=== PATIENT | female | born 1935 | race Caucasian/White ===

== ENCOUNTER 2017-04-25 07:22 | Day surgery (SDC) | payer MEDICARE, BC, MEDICAID ==
[~2017-04-25 07:22] MED LIST: Lactated Ringers 1,000 ML IV SCH; Lidocaine 1%/Sod Bicarbonate in NS 8.4% 1 ML Syringe IDERM PRN; Propofol 200 MG/20 ML SDV ONE; Sodium Chloride 0.9% 10 ML Syringe FLUSH PRN; fentaNYL 100 MCG/2 ML SDV ONE
--- NOTE | 2017-04-25 08:05 | PCM.PREANE ---
Preanesthetic Assessment - Anesthesia/Transfusion/Family Hx Anesthesia History: Prior Anesthesia Without Reaction Family History of Anesthesia Reaction: No Transfusion History: Prior Transfusion Without Reaction Type of Transfusion Reactions: Reports: Unknown - Review of Systems General: No Symptoms Pulmonary: Shortness of Breath (with a lot of walking ) Cardiovascular: Edema (bilateral legs, right more than left), Other (EKG unchanged from 2017, SR with prolonged NH interval, AAA repair 2017, left carotid bruit, denies any chest pain) Gastrointestinal: Diarrhea, Other (GERD, on nexium, ) Neurological: Tingling (in both feet for about a year) Other: Reports: Anxiety - Physical Assessment NPO Status Date: 04/24/17 NPO Status Time: 23:00 Pulse: 57 O2 Sat by Pulse Oximetry: 98 Respiratory Rate: 16 Blood Pressure: 150/73 Temperature: 36.1 C Weight: 86.7 kg ASA Class: 3 Mental Status: Alert & Oriented x3 Dentition: Reports: Dentures, Edentulous Thyro-Mental Finger Breadths: 3 Mouth Opening Finger Breadths: 3 ROM/Head Extension: Full - Allergies Allergies/Adverse Reactions: Allergies Allergy/AdvReac Type Severity Reaction Status Date / Time No Known Allergies Allergy Verified 04/24/17 15:06 - Blood Blood Available: No Product(s) Available: None - Anesthesia Plan Pre-Op Medication Ordered: None Beta Julee: Metoprolol Med Last Dose Date: 04/25/17 Med Last Dose Time: 05:00 - Acknowledgements Anesthesia Type Planned: MAC Pt an Appropriate Candidate for the Planned Anesthesia: Yes Alternatives and Risks of Anesthesia Discussed w Pt/Guardian: Yes Pt/Guardian Understands and Agrees with Anesthesia Plan: Yes PreAnesthesia Questionnaire HEENT History: Reports: Cataract, Impaired Vision, Other (See Below) Other HEENT History: wears glasses, dentures Cardiovascular History: Reports: High Cholesterol, Other (See Below) Other Cardiovascular History: left carotid artery bruit Respiratory History: Reports: SOB Gastrointestinal History: Reports: Chronic Diarrhea, Diverticulosis, Other (See Below) Other Gastrointestinal History: LLQ pain, colon polyps, diarrhea Genitourinary History: Reports: Urinary Incontinence 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 SUPPORT ASSISTANT History: Reports: Other (See Below) Other OB/BYN History: labia minora aggulination, cystocele, rectocele Musculoskeletal History: Reports: Other (See Below) Other Musculoskeletal History: closed compression fracture, lumbar disc herniation Neurological History: Reports: None Psychiatric History: Reports: Anxiety Endocrine/Metabolic History: Reports: None Hematologic History: Reports: None Oncologic (Cancer) History: Reports: None Dermatologic History: Reports: Other (See Below) Other Dermatologic History: lichen sclerosus - Past Surgical History HEENT Surgical History: Reports: Cataract Surgery Cardiovascular Surgical History: Reports: None GI Surgical History: Reports: Colonoscopy, Other (See Below) Other GI Surgeries/Procedures: AAA repair, sigmoidectomy Female Surgical History: Reports: None Male Surgical History: Reports: None Endocrine Surgical History: Reports: None Neurological Surgical History: Reports: None Musculoskeletal Surgical History: Reports: Knee Replacement, Other (See Below) Other Musculoskeletal Surgeries/Procedures:: kyphoplasty Oncologic Surgical History: Reports: None - SUBSTANCE USE Smoking Status *Q: Former Smoker Tobacco Use Within Last Twelve Months: No Second Hand Smoke Exposure: No Recreational Drug Use History: No - HOME MEDS Home Medications: Home Meds Aspirin [Tobias Aspirin] 81 mg PO DAILY 04/03/16 [History] Celecoxib [CeleBREX] 200 mg PO DAILY 04/03/16 [History] Cilostazol [Pletal] 100 mg PO BID 04/03/16 [History] Citalopram Hydrobromide [Celexa] 10 mg PO DAILY 04/03/16 [History] Esomeprazole Magnesium [Nexium] 40 mg PO DAILY 04/03/16 [History] Hydrochlorothiazide 12.5 mg PO DAILY 04/03/16 [History] Metoprolol Succinate [Toprol XL] 100 mg PO DAILY 04/03/16 [History] atorvaSTATin [Lipitor] 40 mg PO DAILY 04/03/16 [History] Acetaminophen [Tylenol Extra Strength] 1,000 mg PO QID PRN 04/24/17 [History] Cholestyramine (With Sugar) [Questran Powder] 1 dose PO BID 04/24/17 [History] Clobetasol [Temovate 0.05%] 1 dose TOP ASDIRECTED PRN 04/24/17 [History] Lisinopril [Lisinopril] 40 mg PO DAILY 04/24/17 [History] amLODIPine Besylate [Amlodipine Besylate] 10 mg PO DAILY 04/24/17 [History] - CURRENT (IN HOUSE) MEDS Current Meds: Current Medications Lactated Ringer's (Ringers, Lactated) 1,000 mls @ 125 mls/hr IV ASDIRECTED MILAGROS Stop: 04/25/17 23:00 Lidocaine/Sodium Bicarbonate (Buffered Lidocaine 1% In Ns 8.4%) 0.25 ml IDERM ONETIME PRN PRN Reason: Prior to IV Start Stop: 04/25/17 18:00 Sodium Chloride (Saline Flush) 10 ml FLUSH ASDIRECTED PRN PRN Reason: Keep Vein Open Stop: 04/25/17 18:00 Discontinued Medications Fentanyl (Sublimaze) Confirm Administered Dose 100 mcg .ROUTE .STK-MED ONE Stop: 04/25/17 07:05 Propofol (Diprivan 20 Ml) Confirm Administered Dose 200 mg .ROUTE .STK-MED ONE Stop: 04/25/17 07:05
[2017-04-25] MEDS ORDERED: Propofol 200 MG/20 ML SDV ONE (09:24)
--- NOTE | 2017-04-25 09:43 | PCM.OPNOTE ---
- General Post-Op/Procedure Note Date of Surgery/Procedure: 04/25/17 Operative Procedure(s): EGD with bx and colonoscopy with collection of stool for culture Pre Op Diagnosis: epigastric pain and chronic diarrhea with change in bowel habbits Post-Op Diagnosis: Same Anesthesia Technique: MAC Primary Surgeon: Toi Wang EBL in mLs: 0 Complications: None Condition: Good
[2017-04-25 09:45] VITALS: BP 112/67
--- NOTE | 2017-04-25 09:45 | PCM48HPAN ---
Post Anesthesia Note - EVALUATION WITHIN 48HRS OF ANESTHETIC Vital Signs in Normal Range: Yes Patient Participated in Evaluation: Yes Respiratory Function Stable: Yes Airway Patent: Yes Cardiovascular Function Stable: Yes Hydration Status Stable: Yes Pain Control Satisfactory: Yes Nausea and Vomiting Control Satisfactory: Yes Mental Status Recovered: Yes Pulse Rate: 53 SaO2: 98 Resp Rate: 20 Temperature: 36.1 C Blood Pressure: 112/67
--- NOTE | 2017-04-26 07:25 | OR ---
DATE OF OPERATION: 04/25/2017 SURGEON: Toi Wang MD PREOPERATIVE DIAGNOSIS: Epigastric pain, difficulty weaning off proton pump inhibitors. POSTOPERATIVE DIAGNOSIS: Epigastric pain, difficulty weaning off proton pump inhibitors. OPERATION PERFORMED: EGD with biopsy. ANESTHESIA: Done under IV sedation. FINDINGS: Second portion of the duodenum, duodenal bulb and pyloric channel was normal. Antrum showed little redness. This was biopsied. Body, cardia and fundus of the stomach was unremarkable. J-maneuver showed an incompetent hiatus. GE junction was located at 40 cm associated with a small sliding simple hiatal hernia. GE junction did not show any acute disease. Rest of the esophagus was normal. DESCRIPTION OF PROCEDURE: The patient was taken to the endoscopy room, placed in a supine position, connected to monitoring equipment, given IV sedation, placed in left lateral position and bite block was inserted. Video Olympus gastroscope placed in the posterior oropharynx and under direct vision, threaded past the cricopharyngeus down the esophagus into the stomach. Stomach was insufflated and the scope passed through the pylorus to the second portion of the duodenum and then slowly withdrawn showing normal 2nd portion of the duodenum, duodenal bulb, pyloric channel. Antrum showed little redness. This was biopsied. Body, cardia and fundus of stomach was normal. J-maneuver did show an incompetent hiatus. The scope was withdrawn, GE junction located at 40 cm with a sharp Z-line. There was no abnormality noted. Biopsies were taken of the GE junction. Small sliding hiatal hernia noted. Rest of the esophagus was viewed as the scope withdrawn was unremarkable. The patient tolerated the procedure and specimen sent to Pathology in separate labeled containers and IV sedation continued for colonoscopy. ESTIMATED BLOOD LOSS: MMODAL /[id number]
--- NOTE | 2017-04-26 07:26 | OR ---
DATE OF OPERATION: 04/25/2017 SURGEON: Toi Wang MD PREOPERATIVE DIAGNOSIS: Chronic diarrhea and left lower quadrant discomfort. POSTOPERATIVE DIAGNOSIS: Chronic diarrhea and left lower quadrant discomfort. OPERATION PERFORMED: Colonoscopy to the cecum with collection of specimen for analysis and culture. FINDINGS: Occasional diverticulum scattered in the descending sigmoid colon. Anastomosis located at 50 cm, which is an end-to-side anastomosis and the rectal pouch was free of any gross abnormality. There are no angiodysplasias, large tumor masses, ulcerations, or strictures. Hemorrhoids were noted. Internal hemorrhoids were also noted. The patient tolerated the procedure. ANESTHESIA: Colonoscopy to cecum done under IV sedation. DESCRIPTION OF PROCEDURE: The patient was taken to the endoscopy room, placed in a supine position, connected to monitoring equipment for upper GI endoscopy, and given IV sedation. Upper GI endoscopy was done, this was followed by colonoscopy. The patient was placed in the left lateral position. Perianal area was inspected, it was normal. Rectal exam showed good sphincter tone. A video Olympus colonoscope was then introduced into the rectum and threaded up to the tip of the gastric pouch, which was normal and this was pulled back and entered into the main colon, which is end-to-side anastomosis. Anastomosis was widely patent and functioning well. Scope then advanced into the cecum where the appendicular orifice and ileocecal valve were noted. Prep was excellent throughout the colon. [place] cleansing score grade A and the scope was slowly withdrawn showing the cecum, ascending colon, transverse colon, descending colon, the remaining portion of the sigmoid colon and rectum. Retroflexed view demonstrated internal hemorrhoids. As the scope was withdrawn, stool was aspirated for analysis and culture. The occasional diverticulum was noted in the descending sigmoid and portion of the sigmoid colon. The patient tolerated the procedure and sent to recovery room in stable condition, will be followed up with Shelley Estrella. ESTIMATED BLOOD LOSS: MMODAL /[id number]
== END 2017-04-25 10:15 | disposition home or self-care (01) ==
LOC: JD.SDS 07:22
PROVIDERS: ATTEND Surgery
DX: K57.30 Diverticulosis of large intestine without perforation or abscess without bleeding (principal); K64.8 Other hemorrhoids; I10 Essential (primary) hypertension; F41.9 Anxiety disorder, unspecified; K21.9 Gastro-esophageal reflux disease without esophagitis; E78.5 Hyperlipidemia, unspecified; Z79.82 Long term (current) use of aspirin; Z79.899 Other long term (current) drug therapy; Z87.891 Personal history of nicotine dependence
CPT/HCPCS: 36415; 45378; 80048; 87046; 87427; 87493; 89055; 93005; J3010; J7120; 00813; J2704

== ENCOUNTER 2020-02-02 11:57 | Inpatient (IN) | payer MEDICARE, BC, MEDICAID ==
[2020-02-02] MEDS ORDERED: Sodium Chloride 0.9% 10 ML Syringe FLUSH PRN (12:14)
[2020-02-02] MEDS ORDERED: Sodium Chloride 0.9% 1,000 ML IV ONE (12:16)
--- NOTE | 2020-02-02 12:36 | EDM.PDOC ---
<Clark Wheat - Last Filed: 02/02/20 13:16> ED HPI GENERAL MEDICAL PROBLEM - General Chief Complaint: General Stated Complaint: [facility] Time Seen by Provider: 02/02/20 12:06 - Related Data Allergies Allergy/AdvReac Type Severity Reaction Status Date / Time No Known Allergies Allergy Verified 02/02/20 12:13 Home Meds: Home Meds Aspirin [Doddridge Aspirin EC] 81 mg PO DAILY 04/03/16 [History] Cilostazol [Pletal] 100 mg PO BID 04/03/16 [History] Citalopram Hydrobromide [Celexa] 10 mg PO DAILY 04/03/16 [History] Metoprolol Succinate [Toprol XL] 100 mg PO DAILY 04/03/16 [History] atorvaSTATin [Lipitor] 40 mg PO DAILY 04/03/16 [History] Acetaminophen [Tylenol Extra Strength] 650 mg PO Q8HR PRN 04/24/17 [History] Doxazosin Mesylate [Cardura] 2 mg PO DAILY 06/26/19 [History] Furosemide [Lasix] 40 mg PO DAILY 06/26/19 [History] Omeprazole 20 mg PO DAILY 06/26/19 [History] Potassium Chloride [Klor-Con M10] 10 meq PO DAILY 06/26/19 [History] rOPINIRole [Requip] 0.5 mg PO BEDTIME 06/26/19 [History] Iron Polysaccharides Complex [Ferrex 150] 1 tab PO DAILY 02/02/20 [History] lisinopriL [Prinivil] 5 mg PO DAILY 02/02/20 [History] Departure - Departure Disposition: Admitted As Inpatient 66 Clinical Impression: Hypoxia, Elevated d-dimer - Discharge Information <Sabrina Montoya V - Last Filed: 02/02/20 19:35> ED HPI GENERAL MEDICAL PROBLEM - General Source of Information: Reports: Patient, RN Notes Reviewed History Limitations: Reports: No Limitations - History of Present Illness INITIAL COMMENTS - FREE TEXT/NARRATIVE: Patient is an 84-year-old female who presents to the ED via [facility] for her diarrhea, and dizziness. Patient notes she has been having di arrhea on and off for about 1 month, she states some days she can have 5-6 episodes per day. She is complaining of feeling faint and dizzy at the present moment and this is what concerns her. She is complaining of generalized weakness, and has not really had much of an appetite. She did receive 4 mg of Zofran in route to the hospital by EMS. And they did have her on 2 L of oxygen as her O2 sats were in the high 80s without this. Patient denies any fever at home, she is afebrile at time of triage 96.9 F. Pulse rate is 52 bpm, respiratory rate of 16, blood pressure is 175/89. O2 sats were 87% on room air when she was taken off of the oxygen again. Patient's primary care provider is Dr. Brandt. She is not complaining of any abdomen pain. She states the nausea only hit today. Right Shoulder Pain Score (Numeric/FACES): 6 Past Medical History HEENT History: Reports: Cataract, Impaired Vision, Other (See Below) Other HEENT History: wears glasses, dentures Cardiovascular History: Reports: High Cholesterol, Other (See Below) Other Cardiovascular History: left carotid artery bruit Respiratory History: Reports: SOB Gastrointestinal History: Reports: Chronic Diarrhea, Diverticulosis, Other (See Below) Other Gastrointestinal History: LLQ pain, colon polyps, diarrhea Genitourinary History: Reports: Urinary Incontinence TIRE RETREADER History: Reports: Other (See Below) Other TIRE RETREADER History: labia minora aggulination, cystocele, rectocele Musculoskeletal History: Reports: Other (See Below) Other Musculoskeletal History: closed compression fracture, lumbar disc herniation Psychiatric History: Reports: Anxiety Endocrine/Metabolic History: Reports: Obesity/BMI 30+ Dermatologic History: Reports: Other (See Below) Other Dermatologic History: lichen sclerosus - Past Surgical History HEENT Surgical History: Reports: Cataract Surgery Cardiovascular Surgical History: Reports: Carotid Endarterectomy (09/2019) GI Surgical History: Reports: Colonoscopy, Other (See Below) Other GI Surgeries/Procedures: AAA repair, sigmoidectomy Musculoskeletal Surgical History: Reports: Knee Replacement, Other (See Below) Other Musculoskeletal Surgeries/Procedures:: kyphoplasty Social & Family History - Caffeine Use Caffeine Use: Reports: Coffee ED ROS GENERAL - Review of Systems Review Of Systems: Comprehensive ROS is negative, except as noted in HPI. ED EXAM, GENERAL - Physical Exam Exam: See Below Exam Limited By: No Limitations General Appearance: Alert, WD/WN, No Apparent Distress Eye Exam: Bilateral Eye: EOMI, Normal Inspection, PERRL Respiratory/Chest: No Respiratory Distress, Lungs Clear, Normal Breath Sounds, No Accessory Muscle Use, Chest Non-Tender Cardiovascular: Normal Peripheral Pulses, Regular Rate, Rhythm, No Murmur GI/Abdominal: Soft, Non-Tender, No Distention, No Mass, Abnormal Bowel Sounds (hypoactive bowel tones) Extremities: Normal Inspection, Normal Capillary Refill Neurological: Alert, Oriented, Normal Cognition, No Motor/Sensory Deficits Psychiatric: Normal Affect, Normal Mood Skin Exam: Warm, Dry, Intact, Normal Color, No Rash #1 Interpretation EKG Date: 02/02/20 Time: 12:54 Rhythm: NSR Rate (Beats/Min): 50 Zenia: Normal P-Wave: Present QRS: Normal ST-T: Normal QT: Normal OH/PQ Interval: prolonged 1 AV block Comparison: No Change EKG Interpretation Comments: Reviewed by myself and Dr. Wheat, no acute ST abnormalities appreciated. 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 Course - Vital Signs Last Recorded V/S: Last Vital Signs Temp 97.5 F 02/02/20 16:39 Pulse 56 L 02/02/20 16:39 Resp 20 02/02/20 16:39 BP 170/70 H 02/02/20 16:43 Pulse Ox 98 02/02/20 17:20 - Orders/Labs/Meds Orders: Active Orders 24 hr Category Date Time Status Peripheral IV Care [RC] Q2HR Care 02/02/20 12:14 Active UA W/MICROSCOPIC [URIN] Stat Lab 02/02/20 12:30 Received Heparin Sodium/D5W [Heparin 25,000 Units in D5W 500 ML] Med 02/02/20 13:57 Active 25,000 units in 500 ml IV TITRATE Sodium Chloride 0.9% [Saline Flush] Med 02/02/20 12:14 Active 10 ml FLUSH ASDIRECTED PRN Peripheral IV Insertion Adult [OM.PC] Routine Oth 02/02/20 12:14 Ordered Medication Orders Acetaminophen (Tylenol) 650 mg PO Q4H PRN PRN Reason: Pain (Mild 1-3)/fever Al Hydroxide/Mg Hydroxide (Mag-Al Plus) 30 ml PO Q4H PRN PRN Reason: Heartburn Albuterol/Ipratropium (Duoneb 3.0-0.5 Mg/3 Ml) 3 ml NEB Q8HRRT MILAGROS Last Admin: 02/02/20 17:54 Dose: Not Given Documented by: NIKIA Aspirin (Halfprin) 81 mg PO DAILY [facility] Cilostazol (Pletal) 100 mg PO BID [facility] Citalopram Hydrobromide (Celexa) 10 mg PO DAILY [facility] Doxazosin Mesylate (Cardura) 2 mg PO DAILY [facility] Furosemide (Lasix) 40 mg PO DAILY [facility] Heparin Sodium/Dextrose (Heparin 25,000 Units In D5w 500 Ml) 25,000 units in 500 mls @ 29.393 mls/hr IV TITRATE ONE; Protocol Stop: 02/03/20 06:57 Last Admin: 02/02/20 14:12 Dose: 18 units/kg/hr, 29.393 mls/hr Documented by: JONATHAN Cosigned by: MANN Sodium Chloride (Normal Saline) 1,000 mls @ 50 mls/hr IV ASDIRECTED [facility] Last Admin: 02/02/20 18:17 Dose: 50 mls/hr Documented by: CHAGO Metoprolol Succinate (Toprol Xl) 100 mg PO DAILY [facility] Pantoprazole Sodium (Protonix) 40 mg PO DAILY@0700 [facility] Potassium Chloride (Klor-Con 10) 10 meq PO DAILY [facility] Ropinirole HCl (Requip) 0.5 mg PO BEDTIME [facility] Rosuvastatin Calcium (Crestor) 10 mg PO DAILY [facility] Sodium Chloride (Saline Flush) 10 ml FLUSH ASDIRECTED PRN PRN Reason: Keep Vein Open Last Admin: 02/02/20 12:30 Dose: 10 ml Documented by: JONATHAN Labs: Laboratory Tests 02/02/20 02/02/20 02/02/20 Range/Units 12:29 12:30 12:30 WBC 4.14 (3.98-10.04) K/mm3 RBC 3.04 L (3.98-5.22) M/mm3 Hgb 8.9 L D (11.2-15.7) gm/dl Hct 29.2 L (34.1-44.9) % MCV 96.1 H (79.4-94.8) fl MCH 29.3 (25.6-32.2) pg MCHC 30.5 L (32.2-35.5) g/dl RDW Std Deviation 45.3 (36.4-46.3) fL Plt Count 236 (182-369) K/mm3 MPV 8.9 L (9.4-12.3) fl Neutrophils % (Manual) 81 H (40-60) % Band Neutrophils % 0 (0-10) % Lymphocytes % (Manual) 16 L (20-40) % Atypical Lymphs % 0 % Monocytes % (Manual) 1 L (2-10) % Eosinophils % (Manual) 2 (0.7-5.8) % Basophils % (Manual) 0 L (0.1-1.2) Platelet Estimate Adequate RBC Morph Comment Normal PT (9.7-12.0) SECONDS INR APTT (21.7-31.4) SECONDS D-Dimer, Quantitative (0.19-0.50) mg/L Puncture Site ABG pH (7.35-7.45) ABG pCO2 (35.0-45.0) mmHg ABG pO2 (80.0-100.0) mmHg ABG HCO3 (22.0-26.0) meq/L ABG O2 Saturation (96.0-97.0) % ABG Base Excess (-2-2.0) Antonio Test O2 Delivery Device Oxygen Flow Rate FiO2 (21.00-100.00) % Sodium (136-145) mEq/L Potassium (3.5-5.1) mEq/L Chloride (98-107) mEq/L Carbon Dioxide (21-32) mEq/L Anion Gap (5-15) BUN (7-18) mg/dL Creatinine (0.55-1.02) mg/dL Est Cr Clr Drug Dosing mL/min Estimated GFR (MDRD) (>60) mL/min BUN/Creatinine Ratio (14-18) Glucose (83-115) mg/dL Lactic Acid (0.4-2.0) mmol/L Calcium (8.5-10.1) mg/dL Magnesium (1.8-2.4) mg/dl Ferritin (8-252) ng/ml Total Bilirubin (0.2-1.0) mg/dL AST (15-37) U/L ALT (14-59) U/L Alkaline Phosphatase (46-116) U/L Lactate Dehydrogenase (81-234) U/L Troponin I (0.00-0.056) ng/mL C-Reactive Protein 0.5 (<1.0) mg/dL NT-Pro-B Natriuret Pep (0-450) pg/mL Total Protein (6.4-8.2) g/dl Albumin (3.4-5.0) g/dl Globulin gm/dL Albumin/Globulin Ratio (1-2) Influenza Type A RNA Negative (NEGATIVE) Influenza Type B RNA Negative (NEGATIVE) SARS-CoV-2 RNA (SHAYNE) Negative (NEGATIVE) 02/02/20 02/02/20 02/02/20 Range/Units 12:30 12:30 12:30 WBC (3.98-10.04) K/mm3 RBC (3.98-5.22) M/mm3 Hgb (11.2-15.7) gm/dl Hct (34.1-44.9) % MCV (79.4-94.8) fl MCH (25.6-32.2) pg MCHC (32.2-35.5) g/dl RDW Std Deviation (36.4-46.3) fL Plt Count (182-369) K/mm3 MPV (9.4-12.3) fl Neutrophils % (Manual) (40-60) % Band Neutrophils % (0-10) % Lymphocytes % (Manual) (20-40) % Atypical Lymphs % % Monocytes % (Manual) (2-10) % Eosinophils % (Manual) (0.7-5.8) % Basophils % (Manual) (0.1-1.2) Platelet Estimate RBC Morph Comment PT 10.9 (9.7-12.0) SECONDS INR 1.02 APTT 23.7 (21.7-31.4) SECONDS D-Dimer, Quantitative 10.00 H (0.19-0.50) mg/L Puncture Site ABG pH (7.35-7.45) ABG pCO2 (35.0-45.0) mmHg ABG pO2 (80.0-100.0) mmHg ABG HCO3 (22.0-26.0) meq/L ABG O2 Saturation (96.0-97.0) % ABG Base Excess (-2-2.0) Antonio Test O2 Delivery Device Oxygen Flow Rate FiO2 (21.00-100.00) % Sodium 137 (136-145) mEq/L Potassium 3.4 L (3.5-5.1) mEq/L Chloride 99 (98-107) mEq/L Carbon Dioxide 29 (21-32) mEq/L Anion Gap 12.4 (5-15) BUN 20 H (7-18) mg/dL Creatinine 1.8 H (0.55-1.02) mg/dL Est Cr Clr Drug Dosing 19.24 mL/min Estimated GFR (MDRD) 27 (>60) mL/min BUN/Creatinine Ratio 11.1 L (14-18) Glucose 120 H (83-115) mg/dL Lactic Acid (0.4-2.0) mmol/L Calcium 9.2 (8.5-10.1) mg/dL Magnesium 1.5 L (1.8-2.4) mg/dl Ferritin (8-252) ng/ml Total Bilirubin 0.6 (0.2-1.0) mg/dL AST 18 (15-37) U/L ALT 13 L (14-59) U/L Alkaline Phosphatase 54 (46-116) U/L Lactate Dehydrogenase 194 (81-234) U/L Troponin I < 0.017 (0.00-0.056) ng/mL C-Reactive Protein (<1.0) mg/dL NT-Pro-B Natriuret Pep 258 (0-450) pg/mL Total Protein 6.5 (6.4-8.2) g/dl Albumin 3.0 L (3.4-5.0) g/dl Globulin 3.5 gm/dL Albumin/Globulin Ratio 0.9 L (1-2) Influenza Type A RNA (NEGATIVE) Influenza Type B RNA (NEGATIVE) SARS-CoV-2 RNA (SHAYNE) (NEGATIVE) 02/02/20 02/02/20 02/02/20 Range/Units 12:30 12:30 13:01 WBC (3.98-10.04) K/mm3 RBC (3.98-5.22) M/mm3 Hgb (11.2-15.7) gm/dl Hct (34.1-44.9) % MCV (79.4-94.8) fl MCH (25.6-32.2) pg MCHC (32.2-35.5) g/dl RDW Std Deviation (36.4-46.3) fL Plt Count (182-369) K/mm3 MPV (9.4-12.3) fl Neutrophils % (Manual) (40-60) % Band Neutrophils % (0-10) % Lymphocytes % (Manual) (20-40) % Atypical Lymphs % % Monocytes % (Manual) (2-10) % Eosinophils % (Manual) (0.7-5.8) % Basophils % (Manual) (0.1-1.2) Platelet Estimate RBC Morph Comment PT (9.7-12.0) SECONDS INR APTT (21.7-31.4) SECONDS D-Dimer, Quantitative (0.19-0.50) mg/L Puncture Site Rt radial ABG pH 7.40 (7.35-7.45) ABG pCO2 49.0 H (35.0-45.0) mmHg ABG pO2 120.0 H (80.0-100.0) mmHg ABG HCO3 29.4 H (22.0-26.0) meq/L ABG O2 Saturation 98.6 H (96.0-97.0) % ABG Base Excess 4.5 H (-2-2.0) Antonio Test Positive O2 Delivery Device Nasal cannula Oxygen Flow Rate 1.0 FiO2 24.00 (21.00-100.00) % Sodium (136-145) mEq/L Potassium (3.5-5.1) mEq/L Chloride (98-107) mEq/L Carbon Dioxide (21-32) mEq/L Anion Gap (5-15) BUN (7-18) mg/dL Creatinine (0.55-1.02) mg/dL Est Cr Clr Drug Dosing mL/min Estimated GFR (MDRD) (>60) mL/min BUN/Creatinine Ratio (14-18) Glucose (83-115) mg/dL Lactic Acid 1.4 (0.4-2.0) mmol/L Calcium (8.5-10.1) mg/dL Magnesium (1.8-2.4) mg/dl Ferritin 25 (8-252) ng/ml Total Bilirubin (0.2-1.0) mg/dL AST (15-37) U/L ALT (14-59) U/L Alkaline Phosphatase (46-116) U/L Lactate Dehydrogenase (81-234) U/L Troponin I (0.00-0.056) ng/mL C-Reactive Protein (<1.0) mg/dL NT-Pro-B Natriuret Pep (0-450) pg/mL Total Protein (6.4-8.2) g/dl Albumin (3.4-5.0) g/dl Globulin gm/dL Albumin/Globulin Ratio (1-2) Influenza Type A RNA (NEGATIVE) Influenza Type B RNA (NEGATIVE) SARS-CoV-2 RNA (SHAYNE) (NEGATIVE) Meds: Medications Generic Name Dose Route Start Last Admin Trade Name Freq PRN Reason Stop Dose Admin Acetaminophen 650 mg 02/02/20 17:20 Tylenol PO Q4H PRN Pain (Mild 1-3)/fever Al Hydroxide/Mg Hydroxide 30 ml 02/02/20 17:35 Mag-Al Plus PO Q4H PRN Heartburn Albuterol/Ipratropium 3 ml 02/02/20 17:45 02/02/20 17:54 Duoneb 3.0-0.5 Mg/3 Ml NEB Not Given Q8HRRT [facility] Aspirin 81 mg 02/03/20 09:00 Halfprin PO DAILY [facility] Cilostazol 100 mg 02/02/20 21:00 Pletal PO BID [facility] Citalopram Hydrobromide 10 mg 02/03/20 09:00 Celexa PO DAILY [facility] Doxazosin Mesylate 2 mg 02/03/20 09:00 Cardura PO DAILY [facility] Furosemide 40 mg 02/03/20 09:00 Lasix PO DAILY [facility] Heparin Sodium/Dextrose 25,000 units in 500 mls @ 29.393 mls/hr 02/02/20 13:57 02/02/20 14:12 Heparin 25,000 Units In D5w 500 Ml IV 02/03/20 06:57 18 units/kg/hr TITRATE ONE 29.393 mls/hr Administration Protocol 18 UNITS/KG/HR Sodium Chloride 1,000 mls @ 50 mls/hr 02/02/20 17:45 02/02/20 18:17 Normal Saline IV 50 mls/hr ASDIRECTED [facility] Administration Metoprolol Succinate 100 mg 02/03/20 09:00 Toprol Xl PO DAILY [facility] Pantoprazole Sodium 40 mg 02/03/20 07:00 Protonix PO DAILY@0700 [facility] Potassium Chloride 10 meq 02/03/20 09:00 Klor-Con 10 PO DAILY MILAGROS Ropinirole HCl 0.5 mg 02/02/20 21:00 Requip PO BEDTIME MILAGROS Rosuvastatin Calcium 10 mg 02/03/20 09:00 Crestor PO DAILY MILAGROS Sodium Chloride 10 ml 02/02/20 12:14 02/02/20 12:30 Saline Flush FLUSH 10 ml ASDIRECTED PRN Administration Keep Vein Open Discontinued Medications Generic Name Dose Route Start Last Admin Trade Name Ragini PRN Reason Stop Dose Admin Enoxaparin Sodium 80 mg 02/02/20 13:53 Lovenox SUBCUT 02/02/20 13:54 ONETIME ONE Heparin Sodium (Porcine) 4,000 units 02/02/20 13:56 02/02/20 14:12 Heparin Sodium IVPUSH 02/02/20 13:57 4,000 units ONETIME ONE Administration Sodium Chloride 1,000 mls @ 500 mls/hr 02/02/20 12:16 02/02/20 12:28 Normal Saline IV 02/02/20 14:15 500 mls/hr ONETIME ONE Administration Potassium Chloride 20 meq 02/02/20 17:29 02/02/20 18:20 Klor-Con M20 PO 02/02/20 17:30 20 meq ONETIME ONE Administration - Re-Assessments/Exams Free Text/Narrative Re-Assessment/Exam: 02/02/20 12:35 Patient presents to the ED for her ongoing diarrhea, and complaints of dizziness. We will get full laboratory work-up, to rule out Covid in nature as she is hypoxic on room air. Urinalysis to be completed as well. 02/02/20 13:25 Patient's lab work as ordered result, CBC is impressive only for a slightly low hemoglobin at 8.9. Metabolic panel shows a slightly low potassium is slightly low magnesium, patient's D-dimer however is 10.0. Patient does have renal dy sfunction, creatinine is 1.8, GFR is 27. Covid swab and influenza swab are still pending. Chest x-ray demonstrates minimal atelectasis within the left base believed to be incidental. The patient's blood gas was done when the patient was on 1 L of oxygen, due to nursing reporting that her O2 sats were in the 70s. This is unfortunate because I did request specifically that the blood gas be done on room air as she was stable and not in any respiratory distress while she was in the ER. So those results are skewed due to being placed on oxygen prior to the blood gas. 02/02/20 13:57 The patient's inflammatory markers are all low, COVID-19 screen is negative as well as influenza screen. I do believe she would need a CTA, but with her renal insufficiency this will be impossible to do at today's visit. I did chat with Dr. Wheat regarding the patient's abnormal lab findings, he suggest doing ultrasound of both of her legs and finding hospital admission. I called Dr. Urbina, he does tentatively accept but would request that heparin be started on the patient. Departure - Departure Time of Disposition: 14:00 Condition: Fair - Discharge Information *PRESCRIPTION DRUG MONITORING PROGRAM REVIEWED*: No *COPY OF PRESCRIPTION DRUG MONITORING REPORT IN PATIENT HONG: No Sepsis Event Note (ED) - Evaluation Sepsis Screening Result: No Definite Risk - Focused Exam Vital Signs: Vital Signs Temp Pulse Resp BP Pulse Ox 02/02/20 12:09 96.9 F 52 L 16 175/89 H 94 L - My Orders Last 24 Hours: My Active Orders 02/02/20 12:14 Peripheral IV Care [RC] Q2HR Sodium Chloride 0.9% [Saline Flush] 10 ml FLUSH ASDIRECTED PRN Peripheral IV Insertion Adult [OM.PC] Routine 02/02/20 12:30 UA W/MICROSCOPIC [URIN] Stat 02/02/20 13:57 Heparin Sodium/D5W [Heparin 25,000 Units in D5W 500 ML] 25,000 units in 500 ml IV TITRATE - Assessment/Plan Last 24 Hours: My Active Orders 02/02/20 12:14 Peripheral IV Care [RC] Q2HR Sodium Chloride 0.9% [Saline Flush] 10 ml FLUSH ASDIRECTED PRN Peripheral IV Insertion Adult [OM.PC] Routine 02/02/20 12:30 UA W/MICROSCOPIC [URIN] Stat 02/02/20 13:57 Heparin Sodium/D5W [Heparin 25,000 Units in D5W 500 ML] 25,000 units in 500 ml IV TITRATE
--- NOTE | 2020-02-02 12:52 | CR ---
Chest: Portable view of the chest was obtained. Comparison: No prior chest imaging is available. Heart size and mediastinum are within normal limits for portable technique. Very minimal atelectasis is seen within the lateral left costophrenic angle. Lungs otherwise are clear. Bony structures show nothing acute. Impression: 1. Minimal atelectasis within the left base believed to be incidental. 2. Nothing acute is appreciated on portable chest x-ray. Diagnostic code #2
[2020-02-02 13:28] LABS: CORONAVIRUS COVID-19 NAA NEGATIVE (NEGATIVE)
[2020-02-02] MEDS ORDERED: Enoxaparin 80 MG/0.8 ML Syringe SUBCUT ONE (13:53)
[2020-02-02] MEDS ORDERED: Heparin Sodium 5,000 Units/ML Vial IVPUSH ONE (13:56)
[2020-02-02] MEDS ORDERED: Heparin Sodium/D5W 25,000 UNITS/500 ML BAG IV ONE (13:57)
--- NOTE | 2020-02-02 15:23 | US ---
Bilateral lower extremity deep venous ultrasound: Duplex and color Doppler evaluation was obtained of the right and left common femoral, proximal greater saphenous, superficial femoral, popliteal, posterior tibial and peroneal veins. Findings: Left common femoral vein showed lack of compression. Other veins show normal phasic flow, augmentation and compression was seen. Impression: 1. Lack of compression within the left peroneal vein. Normal phasic flow and respiratory motion is seen. 2. Other veins appear unremarkable. No definite evidence of deep venous thrombosis within either lower extremity. Diagnostic code #2
[2020-02-02] MEDS ORDERED: Potassium Chloride 20 MEQ Tab.ER PO ONE (17:29)
[2020-02-02] MEDS ORDERED: Aluminum Hydroxide/Magnesium Hydroxide/Simethicone Susp 30 ML Cup PO PRN (17:35)
--- NOTE | 2020-02-02 17:40 | PCM.HP.2 ---
H&P History of Present Illness - General Date of Service: 02/02/20 Admit Problem/Dx: Admission Diagnosis/Problem Admission Diagnosis/Problem Hypoxia - History of Present Illness Initial Comments - Free Text/Narative: 80-year-old female with history of peripheral vascular disease post left-sided CEA approximately 3 months ago started developing dizziness and lightheadedness when using the toilet. Patient states that it is been happening for a little over a month, but today it was much more severe. She was having a bowel movement, diarrhea, when it occurred and she became dizzy and nauseated. EMS was called and she was brought to the ED. Patient was found to be hypoxemic by EMS and started her on 2 L of oxygen via nasal cannula. Oxygen saturations were in the high 80s with heart rate of 52 bpm and a respiratory rate of 16. She states she does have a history of hypertension her blood pressure was 175/89. Patient has not had any close contacts with Covid and denies any abdominal pain. In the emergency department her EKG showed normal sinus rhythm with a ventricular rate of 50 bpm and first-degree AV block. Otherwise there were no significant abnormalities except some Q waves in V1 and V2. In the emergency department she was found to have a D-dimer of 10 and kidney function was significantly reduced with a creatinine clearance of 19 and an estimated GFR of 27. Patient does state that she has a history of kidney disease and sees a healthcare recruiter. Recently healthcare recruiter said she was doing well and did not need to follow-up. Hemoglobin was significantly low at 8.9. Blood gas was unrem arkable. Chest x-ray showed some minimal atelectasis in the left base. Ultrasound of the lower extremities were negative. CTA of the chest was not performed because of her renal function. Patient was started on heparin drip for presumed pulmonary embolism and admitted to the hospital for further evaluation. Right Shoulder Pain Score (Numeric/FACES): 6 - Related Data Allergies/Adverse Reactions: Allergies Allergy/AdvReac Type Severity Reaction Status Date / Time No Known Allergies Allergy Verified 02/02/20 12:13 Home Medications: Home Meds Aspirin [Mccool Aspirin EC] 81 mg PO DAILY 04/03/16 [History] Cilostazol [Pletal] 100 mg PO BID 04/03/16 [History] Citalopram Hydrobromide [Celexa] 10 mg PO DAILY 04/03/16 [History] Metoprolol Succinate [Toprol XL] 100 mg PO DAILY 04/03/16 [History] atorvaSTATin [Lipitor] 40 mg PO DAILY 04/03/16 [History] Acetaminophen [Tylenol Extra Strength] 650 mg PO Q8HR PRN 04/24/17 [History] Doxazosin Mesylate [Cardura] 2 mg PO DAILY 06/26/19 [History] Furosemide [Lasix] 40 mg PO DAILY 06/26/19 [History] Omeprazole 20 mg PO DAILY 06/26/19 [History] Potassium Chloride [Klor-Con M10] 10 meq PO DAILY 06/26/19 [History] rOPINIRole [Requip] 0.5 mg PO BEDTIME 06/26/19 [History] Iron Polysaccharides Complex [Ferrex 150] 1 tab PO DAILY 02/02/20 [History] lisinopriL [Prinivil] 5 mg PO DAILY 02/02/20 [History] Past Medical History HEENT History: Reports: Cataract, Impaired Vision, Other (See Below) Other HEENT History: wears glasses, dentures Cardiovascular History: Reports: High Cholesterol, Other (See Below) Other Cardiovascular History: left carotid artery bruit, and a left carotid endardectomy 2-3 months ago. Respiratory History: Reports: SOB Gastrointestinal History: Reports: Chronic Diarrhea, Diverticulosis, Other (See Below) Other Gastrointestinal History: LLQ pain, colon polyps removed approx. 1 months ago, diarrhea Genitourinary History: Reports: Urinary Incontinence [employer] History: Reports: Other (See Below) Other OB/BYN History: labia minora aggulination, cystocele, rectocele Musculoskeletal History: Reports: Other (See Below) Other Musculoskeletal History: closed compression fracture, lumbar disc hernia tion Psychiatric History: Reports: Anxiety Endocrine/Metabolic History: Reports: Obesity/BMI 30+ Hematologic History: Reports: Iron Deficiency Dermatologic History: Reports: Other (See Below) Other Dermatologic History: lichen sclerosus - Infectious Disease History Infectious Disease History: Reports: Chicken Pox, Measles, Mumps, Pertussis (Whooping Cough) - Past Surgical History HEENT Surgical History: Reports: Cataract Surgery Cardiovascular Surgical History: Reports: Carotid Endarterectomy Respiratory Surgical History: Reports: None GI Surgical History: Reports: Colonoscopy, Other (See Below) Other GI Surgeries/Procedures: AAA repair, sigmoidectomy Female Surgical History: Reports: None Endocrine Surgical History: Reports: None Musculoskeletal Surgical History: Reports: Knee Replacement, Other (See Below) Other Musculoskeletal Surgeries/Procedures:: kyphoplasty Dermatological Surgical History: Reports: None Social & Family History - Family History Family Medical History: No Pertinent Family History - Tobacco Use Tobacco Use Status *Q: Former Tobacco User Years of Tobacco use: 50 Packs/Tins Daily: 1 Used Tobacco, but Quit: Yes Month/Year Tobacco Last Used: 10/2000 - Caffeine Use Caffeine Use: Reports: Coffee, Tea - Recreational Drug Use Recreational Drug Use: No H&P Review of Systems - Review of Systems: Review Of Systems: Comprehensive ROS is negative, except as noted in HPI. Exam - Exam Exam: See Below - Vital Signs Vital Signs: Last Vital Signs Temp 97.5 F 02/02/20 16:39 Pulse 56 L 02/02/20 16:39 Resp 20 02/02/20 16:39 BP 170/70 H 02/02/20 16:43 Pulse Ox 98 02/02/20 16:39 Weight: 177 lb 1.6 oz - Exam Quality Assessment: Supplemental Oxygen General: Alert, Oriented, 4 HEENT: Conjunctiva Clear, EOMI, Mucosa Moist & [place], Normal Nasal Septum. No: Hearing Intact (Mildly reduced) Neck: Supple, Trachea Midline, 2 Lungs: Normal Respiratory Effort, Crackles (Left lower lobe), Wheezing (Throu ghout) Cardiovascular: Regular Rhythm, Bradycardia GI/Abdominal Exam: Normal Bowel Sounds, Soft, Non-Tender, No Organomegaly, No Distention, No Abnormal Bruit, No Mass Extremities: Normal Inspection, Normal Capillary Refill, Pedal Edema (1+). No: Non-Tender (Diffuse tenderness of the calves and ankles) Skin: Warm, Dry, Intact Neuro Extensive - Mental Status: Alert, Oriented x3, Normal Mood/Affect, Normal Cognition, Memory Intact Neuro Extensive - Motor, Sensory, Reflexes: CN II-XII Intact Psychiatric: Alert, Normal Affect, Normal Mood - Patient Data Lab Results Last 24 hrs: Laboratory Results - last 24 hr 02/02/20 02/02/20 02/02/20 Range/Units 12:29 12:30 12:30 WBC 4.14 (3.98-10.04) K/mm3 RBC 3.04 L (3.98-5.22) M/mm3 Hgb 8.9 L D (11.2-15.7) gm/dl Hct 29.2 L (34.1-44.9) % MCV 96.1 H (79.4-94.8) fl MCH 29.3 (25.6-32.2) pg MCHC 30.5 L (32.2-35.5) g/dl RDW Std Deviation 45.3 (36.4-46.3) fL Plt Count 236 (182-369) K/mm3 MPV 8.9 L (9.4-12.3) fl Neutrophils % (Manual) 81 H (40-60) % Band Neutrophils % 0 (0-10) % Lymphocytes % (Manual) 16 L (20-40) % Atypical Lymphs % 0 % Monocytes % (Manual) 1 L (2-10) % Eosinophils % (Manual) 2 (0.7-5.8) % Basophils % (Manual) 0 L (0.1-1.2) Platelet Estimate Adequate RBC Morph Comment Normal PT (9.7-12.0) SECONDS INR APTT (21.7-31.4) SECONDS D-Dimer, Quantitative (0.19-0.50) mg/L Puncture Site ABG pH (7.35-7.45) ABG pCO2 (35.0-45.0) mmHg ABG pO2 (80.0-100.0) mmHg ABG HCO3 (22.0-26.0) meq/L ABG O2 Saturation (96.0-97.0) % ABG Base Excess (-2-2.0) Antonio Test O2 Delivery Device Oxygen Flow Rate FiO2 (21.00-100.00) % Sodium (136-145) mEq/L Potassium (3.5-5.1) mEq/L Chloride (98-107) mEq/L Carbon Dioxide (21-32) mEq/L Anion Gap (5-15) BUN (7-18) mg/dL Creatinine (0.55-1.02) mg/dL Est Cr Clr Drug Dosing mL/min Estimated GFR (MDRD) (>60) mL/min BUN/Creatinine Ratio (14-18) Glucose (83-115) mg/dL Lactic Acid (0.4-2.0) mmol/L Calcium (8.5-10.1) mg/dL Magnesium (1.8-2.4) mg/dl Ferritin (8-252) ng/ml Total Bilirubin (0.2-1.0) mg/dL AST (15-37) U/L ALT (14-59) U/L Alkaline Phosphatase (46-116) U/L Lactate Dehydrogenase (81-234) U/L Troponin I (0.00-0.056) ng/mL C-Reactive Protein 0.5 (<1.0) mg/dL NT-Pro-B Natriuret Pep (0-450) pg/mL Total Protein (6.4-8.2) g/dl Albumin (3.4-5.0) g/dl Globulin gm/dL Albumin/Globulin Ratio (1-2) Influenza Type A RNA Negative (NEGATIVE) Influenza Type B RNA Negative (NEGATIVE) SARS-CoV-2 RNA (SHAYNE) Negative (NEGATIVE) 02/02/20 02/02/20 02/02/20 Range/Units 12:30 12:30 12:30 WBC (3.98-10.04) K/mm3 RBC (3.98-5.22) M/mm3 Hgb (11.2-15.7) gm/dl Hct (34.1-44.9) % MCV (79.4-94.8) fl MCH (25.6-32.2) pg MCHC (32.2-35.5) g/dl RDW Std Deviation (36.4-46.3) fL Plt Count (182-369) K/mm3 MPV (9.4-12.3) fl Neutrophils % (Manual) (40-60) % Band Neutrophils % (0-10) % Lymphocytes % (Manual) (20-40) % Atypical Lymphs % % Monocytes % (Manual) (2-10) % Eosinophils % (Manual) (0.7-5.8) % Basophils % (Manual) (0.1-1.2) Platelet Estimate RBC Morph Comment PT 10.9 (9.7-12.0) SECONDS INR 1.02 APTT 23.7 (21.7-31.4) SECONDS D-Dimer, Quantitative 10.00 H (0.19-0.50) mg/L Puncture Site ABG pH (7.35-7.45) ABG pCO2 (35.0-45.0) mmHg ABG pO2 (80.0-100.0) mmHg ABG HCO3 (22.0-26.0) meq/L ABG O2 Saturation (96.0-97.0) % ABG Base Excess (-2-2.0) Antonio Test O2 Delivery Device Oxygen Flow Rate FiO2 (21.00-100.00) % Sodium 137 (136-145) mEq/L Potassium 3.4 L (3.5-5.1) mEq/L Chloride 99 (98-107) mEq/L Carbon Dioxide 29 (21-32) mEq/L Anion Gap 12.4 (5-15) BUN 20 H (7-18) mg/dL Creatinine 1.8 H (0.55-1.02) mg/dL Est Cr Clr Drug Dosing 19.24 mL/min Estimated GFR (MDRD) 27 (>60) mL/min BUN/Creatinine Ratio 11.1 L (14-18) Glucose 120 H (83-115) mg/dL Lactic Acid (0.4-2.0) mmol/L Calcium 9.2 (8.5-10.1) mg/dL Magnesium 1.5 L (1.8-2.4) mg/dl Ferritin (8-252) ng/ml Total Bilirubin 0.6 (0.2-1.0) mg/dL AST 18 (15-37) U/L ALT 13 L (14-59) U/L Alkaline Phosphatase 54 (46-116) U/L Lactate Dehydrogenase 194 (81-234) U/L Troponin I < 0.017 (0.00-0.056) ng/mL C-Reactive Protein (<1.0) mg/dL NT-Pro-B Natriuret Pep 258 (0-450) pg/mL Total Protein 6.5 (6.4-8.2) g/dl Albumin 3.0 L (3.4-5.0) g/dl Globulin 3.5 gm/dL Albumin/Globulin Ratio 0.9 L (1-2) Influenza Type A RNA (NEGATIVE) Influenza Type B RNA (NEGATIVE) SARS-CoV-2 RNA (SHAYNE) (NEGATIVE) 02/02/20 02/02/20 02/02/20 Range/Units 12:30 12:30 13:01 WBC (3.98-10.04) K/mm3 RBC (3.98-5.22) M/mm3 Hgb (11.2-15.7) gm/dl Hct (34.1-44.9) % MCV (79.4-94.8) fl MCH (25.6-32.2) pg MCHC (32.2-35.5) g/dl RDW Std Deviation (36.4-46.3) fL Plt Count (182-369) K/mm3 MPV (9.4-12.3) fl Neutrophils % (Manual) (40-60) % Band Neutrophils % (0-10) % Lymphocytes % (Manual) (20-40) % Atypical Lymphs % % Monocytes % (Manual) (2-10) % Eosinophils % (Manual) (0.7-5.8) % Basophils % (Manual) (0.1-1.2) Platelet Estimate RBC Morph Comment PT (9.7-12.0) SECONDS INR APTT (21.7-31.4) SECONDS D-Dimer, Quantitative (0.19-0.50) mg/L Puncture Site Rt radial ABG pH 7.40 (7.35-7.45) ABG pCO2 49.0 H (35.0-45.0) mmHg ABG pO2 120.0 H (80.0-100.0) mmHg ABG HCO3 29.4 H (22.0-26.0) meq/L ABG O2 Saturation 98.6 H (96.0-97.0) % ABG Base Excess 4.5 H (-2-2.0) Antonio Test Positive O2 Delivery Device Nasal cannula Oxygen Flow Rate 1.0 FiO2 24.00 (21.00-100.00) % Sodium (136-145) mEq/L Potassium (3.5-5.1) mEq/L Chloride (98-107) mEq/L Carbon Dioxide (21-32) mEq/L Anion Gap (5-15) BUN (7-18) mg/dL Creatinine (0.55-1.02) mg/dL Est Cr Clr Drug Dosing mL/min Estimated GFR (MDRD) (>60) mL/min BUN/Creatinine Ratio (14-18) Glucose (83-115) mg/dL Lactic Acid 1.4 (0.4-2.0) mmol/L Calcium (8.5-10.1) mg/dL Magnesium (1.8-2.4) mg/dl Ferritin 25 (8-252) ng/ml Total Bilirubin (0.2-1.0) mg/dL AST (15-37) U/L ALT (14-59) U/L Alkaline Phosphatase (46-116) U/L Lactate Dehydrogenase (81-234) U/L Troponin I (0.00-0.056) ng/mL C-Reactive Protein (<1.0) mg/dL NT-Pro-B Natriuret Pep (0-450) pg/mL Total Protein (6.4-8.2) g/dl Albumin (3.4-5.0) g/dl Globulin gm/dL Albumin/Globulin Ratio (1-2) Influenza Type A RNA (NEGATIVE) Influenza Type B RNA (NEGATIVE) SARS-CoV-2 RNA (SHAYNE) (NEGATIVE) Result Diagrams: 02/02/20 12:30 02/02/20 12:30 Sepsis Event Note - Evaluation Sepsis Screening Result: No Definite Risk - Focused Exam Vital Signs: Vital Signs Temp Temp Pulse Pulse Resp BP Pulse Ox 02/02/20 16:43 170/70 H 02/02/20 16:39 97.5 F 56 L 20 98 02/02/20 12:09 96.9 F 52 L 16 175/89 H 94 L - Problem List (1) Pulmonary embolism SNOMED Code(s): 74676645 ICD Code: I26.99 - OTHER PULMONARY EMBOLISM WITHOUT ACUTE COR PULMONALE Status: Suspected Current Visit: Yes (2) PVD (peripheral vascular disease) with claudication SNOMED Code(s): 476288756, 683566810 ICD Code: I73.9 - PERIPHERAL VASCULAR DISEASE, UNSPECIFIED Status: Acute Current Visit: Yes (3) HTN (hypertension) SNOMED Code(s): 00476935 ICD Code: I10 - ESSENTIAL (PRIMARY) HYPERTENSION Status: Acute Current Visit: Yes (4) Chronic renal disease SNOMED Code(s): 380542979 ICD Code: N18.9 - CHRONIC KIDNEY DISEASE, UNSPECIFIED Status: Acute Current Visit: Yes (5) Vagal reaction SNOMED Code(s): 292437287 ICD Code: R55 - SYNCOPE AND COLLAPSE Status: Acute Current Visit: Yes (6) Elevated d-dimer SNOMED Code(s): 943681140 ICD Code: R79.89 - OTHER SPECIFIED ABNORMAL FINDINGS OF BLOOD CHEMISTRY Status: Acute Current Visit: Yes (7) Hypoxia SNOMED Code(s): 861880889 ICD Code: R09.02 - HYPOXEMIA Status: Acute Current Visit: Yes Problem List Initiated/Reviewed/Updated: Yes Orders Last 24hrs: Active Orders 24 hr Category Date Time Status Patient Status [ADT] Routine ADT 02/02/20 17:23 Ordered EKG Documentation Completion [RC] STAT Care 02/02/20 12:13 Active Oxygen Therapy [RC] PRN Care 02/02/20 17:20 Ordered Peripheral IV Care [RC] . DIRECTED Care 02/02/20 12:14 Active RT Aerosol Therapy [RC] ASDIRECTED Care 02/02/20 17:22 Ordered Up With Assistance [RC] ASDIRECTED Care 02/02/20 17:20 Ordered VTE/DVT Education [RC] PER UNIT ROUTINE Care 02/02/20 17:20 Ordered Vital Signs [RC] Q4H Care 02/02/20 17:20 Ordered PT Evaluation and Treatment [CONS] Routine Cons 02/03/20 Ordered Heart Healthy Diet [DIET] Diet 02/02/20 Dinner Active C-REACTIVE PROTEIN [CHEM] AM Lab 02/03/20 05:11 Ordered CBC WITH AUTO DIFF [HEME] AM Lab 02/03/20 05:11 Ordered COMPREHENSIVE METABOLIC PN,CMP [CHEM] AM Lab 02/03/20 05:11 Ordered MAGNESIUM [CHEM] AM Lab 02/03/20 05:11 Ordered PHOSPHORUS [CHEM] AM Lab 02/03/20 05:11 Ordered TROPONIN I [CHEM] AM Lab 02/03/20 05:11 Ordered TSH [CHEM] AM Lab 02/03/20 05:11 Ordered UA W/MICROSCOPIC [URIN] Stat Lab 02/02/20 12:30 Received Acetaminophen [TylenoL] Med 02/02/20 17:20 Ordered 650 mg PO Q4H PRN Albuterol/Ipratropium [DuoNeb 3.0-0.5 MG/3 ML] Med 02/02/20 17:30 Ordered 3 ml NEB Q8H Alum Hydrox/Mag Hydrox/Simeth [Mag-Al Plus] Med 02/02/20 17:35 Ordered 30 ml PO Q4H PRN Aspirin [Halfprin] Med 02/03/20 09:00 Ordered 81 mg PO DAILY Citalopram [Celexa] Med 02/03/20 09:00 Ordered 10 mg PO DAILY Doxazosin [Cardura] Med 02/03/20 09:00 Ordered 2 mg PO DAILY Furosemide [Lasix] Med 02/03/20 09:00 Ordered 40 mg PO DAILY Heparin Sodium/D5W [Heparin 25,000 Units in D5W 500 ML] Med 02/02/20 13:57 Active 25,000 units in 500 ml IV TITRATE Metoprolol Succinate Med 02/03/20 09:00 Ordered 100 mg PO DAILY Omeprazole Med 02/03/20 09:00 Ordered 20 mg PO DAILY Potassium Chloride [Klor-Con M10] Med 02/03/20 09:00 Ordered 10 meq PO DAILY Sodium Chloride 0.9% [Saline Flush] Med 02/02/20 12:14 Active 10 ml FLUSH ASDIRECTED PRN atorvaSTATin Med 02/03/20 09:00 Ordered 40 mg PO DAILY cilostazoL [Pletal] Med 02/02/20 21:00 Ordered 100 mg PO BID rOPINIRole Med 02/02/20 21:00 Ordered 0.5 mg PO BEDTIME Peripheral IV Insertion Adult [OM.PC] Routine Oth 02/02/20 12:14 Ordered Resuscitation Status Routine Resus Stat 02/02/20 16:46 Ordered Medication Orders Acetaminophen (Tylenol) 650 mg PO Q4H PRN PRN Reason: Pain (Mild 1-3)/fever Al Hydroxide/Mg Hydroxide (Mag-Al Plus) 30 ml PO Q4H PRN PRN Reason: Heartburn Albuterol/Ipratropium (Duoneb 3.0-0.5 Mg/3 Ml) 3 ml NEB Q8HRRT MILAGROS Aspirin (Halfprin) 81 mg PO DAILY MILAGROS Cilostazol (Pletal) 100 mg PO BID MILAGROS Citalopram Hydrobromide (Celexa) 10 mg PO DAILY MILAGROS Doxazosin Mesylate (Cardura) 2 mg PO DAILY MILAGROS Furosemide (Lasix) 40 mg PO DAILY MILAGROS Heparin Sodium/Dextrose (Heparin 25,000 Units In D5w 500 Ml) 25,000 units in 500 mls @ 29.393 mls/hr IV TITRATE ONE; Protocol Stop: 02/03/20 06:57 Last Admin: 02/02/20 14:12 Dose: 18 units/kg/hr, 29.393 mls/hr Documented by: JONATHAN Cosigned by: MANN Metoprolol Succinate (Toprol Xl) 100 mg PO DAILY MILAGROS Non-Formulary Medication (Omeprazole) 20 mg PO DAILY MILAGROS Potassium Chloride (Klor-Con 10) 10 meq PO DAILY MILAGROS Ropinirole HCl (Requip) 0.5 mg PO BEDTIME MILAGROS Rosuvastatin Calcium (Crestor) 10 mg PO DAILY MILAGROS Sodium Chloride (Saline Flush) 10 ml FLUSH ASDIRECTED PRN PRN Reason: Keep Vein Open Last Admin: 02/02/20 12:30 Dose: 10 ml Documented by: JONATHAN Assessment/Plan Comment:: Assessment 84-year-old female who presents with dizziness during defecation and toileting for the last month found to be significantly hypoxemic by EMS and in the ED. * Patient has a significantly elevated D-dimer with hypoxemia making pulmonary embolism high on the differential. CTA was not performed because of her renal dysfunction, so patient was started on heparin drip with presumption of pulmonary embolism. * Goal overnight will be to increased her volume status in hopes that it can improve her renal function. If GFR is greater than 30 will consider doing CTA tomorrow. * COVID-19 was negative and other inflammatory markers were also negative. * Chest x-ray does show some minimal left base atelectasis, not likely causing this amount of hypoxemia. * Patient does have a history of smoking in the past and is wheezy on exam. Unknown how long she is been hypoxemic and this may be her chronic steady state. * Patient's dizziness is likely a vagal reaction either dropping of her blood pressure or more likely bradycardia. Patient presents with bradycardia to the ED. * Negative Dopplers of the lower extremities. * D-dimer 10 Anemia * Patient states that she has not noticed any blood in her stools and she does take iron so she does have some dark stools. * Hemoglobin was 8.9 and there is no more recent hemoglobin available. * Patient is on Pletal and aspirin 81 mg daily. She does take omeprazole which may help prevent gastric erosions. * Closely monitor hemoglobin secondary to heparin drip. * Stool studies for fecal occult blood will be useless secondary to iron intake. Hypertension/hyperlipidemia/peripheral vascular disease * Patient has significant hypertension on presentation * On the above for peripheral vascular disease and claudication * Left-sided carotid endarterectomy 3 months ago. Chronic renal insufficiency * Estimated GFR 28. Last GFR done in 2018 was the same. * Possible some secondary acute renal injury due to hypovolemia or intravascular/intrarenal volume reduction. * On lisinopril for renal protection. Hypokalemia/hypomagnesemia * Potassium 3.4 * Magnesium 1.5 Plan * Admit to the floor on telemetry * FiO2 to keep SPO2 92% or greater * Continue heparin drip. * Plan CTA of the chest in the morning if renal function improves. May need to give additional bolus of IV fluids tomorrow. * Continue normal saline IV fluids at a low rate of 50 mL/h * Heart healthy diet * Follow blood pressures closely. * Follow heart rate if she has another bowel movement and follow symptoms. * Replete magnesium and potassium * CBC, CMP, mag, phosphorus, TSH, repeat troponin in the morning * VTE prophylaxis with heparin * CODE STATUS: Full code - Mortality Measure Prognosis:: Good
[2020-02-02] MEDS ORDERED: Sodium Chloride 0.9% 1,000 ML IV SCH (17:45)
[2020-02-02] MEDS: Albuterol/Ipratropium 3.0-0.5 MG/3 ML Neb Soln NEB SCH ×2 (17:54→20:05)
[2020-02-02] MEDS: rOPINIRole 0.25 MG Tab PO SCH (20:25)
[2020-02-02] MEDS: Acetaminophen 325 MG Tab PO PRN (20:42)
[2020-02-02] MEDS ORDERED: Magnesium Sulfate/Water 4 GM in Premix Bag 1 BAG IV ONE (20:44)
[2020-02-03] MEDS: Albuterol/Ipratropium 3.0-0.5 MG/3 ML Neb Soln NEB SCH ×3 (06:01→20:36)
[2020-02-03] MEDS: Pantoprazole 40 MG Tab.CR PO SCH (06:13)
[2020-02-03] MEDS ORDERED: Sodium Chloride 0.9% 500 ML IV ONE (08:30)
[2020-02-03] MEDS ORDERED: Heparin Sodium/D5W 25,000 UNITS/500 ML BAG IV SCH (08:30)
[2020-02-03] MEDS ORDERED: Sodium Chloride 0.9% 10 ML Syringe FLUSH PRN (08:49)
[2020-02-03] MEDS ORDERED: Iopamidol 755 Mg/ML 100 ML Bottle IVPUSH ONE (08:49)
[2020-02-03] MEDS ORDERED: Sodium Chloride 0.9% 100 ML IV SCH (09:00)
--- NOTE | 2020-02-03 09:22 | PCM.PN ---
- General Info Date of Service: 02/03/20 Admission Dx/Problem (Free Text): Admission Diagnosis/Problem Admission Diagnosis/Problem Hypoxia Subjective Update: Patient is feeling better today. She was a bit tired after the CT scan and physical therapy. She has not had any more episodes of dizziness since admission. Appetite is moderate. Functional Status: Reports: Pain Controlled - Review of Systems General: Reports: Fatigue Pulmonary: Reports: No Symptoms Cardiovascular: Reports: No Symptoms Gastrointestinal: Reports: No Symptoms Musculoskeletal: Reports: No Symptoms - Patient Data Vitals - Most Recent: Last Vital Signs Temp 97.7 F 02/03/20 07:56 Pulse 66 02/03/20 07:56 Resp 16 02/03/20 07:56 BP 133/56 L 02/03/20 07:56 Pulse Ox 96 02/03/20 08:33 Weight - Most Recent: 176 lb 3.2 oz I&O - Last 24 Hours: Intake & Output 02/02/20 02/03/20 02/03/20 22:59 06:59 14:59 Intake Total 60 1402 Output Total 800 Balance 60 602 Lab Results Last 24 Hours: Laboratory Results - last 24 hr 02/02/20 02/02/20 02/02/20 Range/Units 12:29 12:30 12:30 WBC 4.14 (3.98-10.04) K/mm3 RBC 3.04 L (3.98-5.22) M/mm3 Hgb 8.9 L D (11.2-15.7) gm/dl Hct 29.2 L (34.1-44.9) % MCV 96.1 H (79.4-94.8) fl MCH 29.3 (25.6-32.2) pg MCHC 30.5 L (32.2-35.5) g/dl RDW Std Deviation 45.3 (36.4-46.3) fL Plt Count 236 (182-369) K/mm3 MPV 8.9 L (9.4-12.3) fl Neut % (Auto) (34.0-71.1) % Lymph % (Auto) (19.3-51.7) % [place] % (Auto) (4.7-12.5) % Eos % (Auto) (0.7-5.8) Baso % (Auto) (0.1-1.2) % Neut # (Auto) (1.56-6.13) K/mm3 Lymph # (Auto) (1.18-3.74) K/mm3 [place] # (Auto) (0.24-0.36) K/mm3 Eos # (Auto) (0.04-0.36) K/mm3 Baso # (Auto) (0.01-0.08) K/mm3 Neutrophils % (Manual) 81 H (40-60) % Band Neutrophils % 0 (0-10) % Lymphocytes % (Manual) 16 L (20-40) % Atypical Lymphs % 0 % Monocytes % (Manual) 1 L (2-10) % Eosinophils % (Manual) 2 (0.7-5.8) % Basophils % (Manual) 0 L (0.1-1.2) Platelet Estimate Adequate RBC Morph Comment Normal PT (9.7-12.0) SECONDS INR APTT (21.7-31.4) SECONDS D-Dimer, Quantitative (0.19-0.50) mg/L Puncture Site ABG pH (7.35-7.45) ABG pCO2 (35.0-45.0) mmHg ABG pO2 (80.0-100.0) mmHg ABG HCO3 (22.0-26.0) meq/L ABG O2 Saturation (96.0-97.0) % ABG Base Excess (-2-2.0) Antonio Test O2 Delivery Device Oxygen Flow Rate FiO2 (21.00-100.00) % Sodium (136-145) mEq/L Potassium (3.5-5.1) mEq/L Chloride (98-107) mEq/L Carbon Dioxide (21-32) mEq/L Anion Gap (5-15) BUN (7-18) mg/dL Creatinine (0.55-1.02) mg/dL Est Cr Clr Drug Dosing mL/min Estimated GFR (MDRD) (>60) mL/min BUN/Creatinine Ratio (14-18) Glucose (83-115) mg/dL Lactic Acid (0.4-2.0) mmol/L Calcium (8.5-10.1) mg/dL Phosphorus (2.6-4.7) mg/dL Magnesium (1.8-2.4) mg/dl Ferritin (8-252) ng/ml Total Bilirubin (0.2-1.0) mg/dL AST (15-37) U/L ALT (14-59) U/L Alkaline Phosphatase (46-116) U/L Lactate Dehydrogenase (81-234) U/L Troponin I (0.00-0.056) ng/mL C-Reactive Protein 0.5 (<1.0) mg/dL NT-Pro-B Natriuret Pep (0-450) pg/mL Total Protein (6.4-8.2) g/dl Albumin (3.4-5.0) g/dl Globulin gm/dL Albumin/Globulin Ratio (1-2) TSH 3rd Generation (0.358-3.74) uIU/mL Influenza Type A RNA Negative (NEGATIVE) Influenza Type B RNA Negative (NEGATIVE) SARS-CoV-2 RNA (SHAYNE) Negative (NEGATIVE) 02/02/20 02/02/20 02/02/20 Range/Units 12:30 12:30 12:30 WBC (3.98-10.04) K/mm3 RBC (3.98-5.22) M/mm3 Hgb (11.2-15.7) gm/dl Hct (34.1-44.9) % MCV (79.4-94.8) fl MCH (25.6-32.2) pg MCHC (32.2-35.5) g/dl RDW Std Deviation (36.4-46.3) fL Plt Count (182-369) K/mm3 MPV (9.4-12.3) fl Neut % (Auto) (34.0-71.1) % Lymph % (Auto) (19.3-51.7) % [place] % (Auto) (4.7-12.5) % Eos % (Auto) (0.7-5.8) Baso % (Auto) (0.1-1.2) % Neut # (Auto) (1.56-6.13) K/mm3 Lymph # (Auto) (1.18-3.74) K/mm3 [place] # (Auto) (0.24-0.36) K/mm3 Eos # (Auto) (0.04-0.36) K/mm3 Baso # (Auto) (0.01-0.08) K/mm3 Neutrophils % (Manual) (40-60) % Band Neutrophils % (0-10) % Lymphocytes % (Manual) (20-40) % Atypical Lymphs % % Monocytes % (Manual) (2-10) % Eosinophils % (Manual) (0.7-5.8) % Basophils % (Manual) (0.1-1.2) Platelet Estimate RBC Morph Comment PT 10.9 (9.7-12.0) SECONDS INR 1.02 APTT 23.7 (21.7-31.4) SECONDS D-Dimer, Quantitative 10.00 H (0.19-0.50) mg/L Puncture Site ABG pH (7.35-7.45) ABG pCO2 (35.0-45.0) mmHg ABG pO2 (80.0-100.0) mmHg ABG HCO3 (22.0-26.0) meq/L ABG O2 Saturation (96.0-97.0) % ABG Base Excess (-2-2.0) Antonio Test O2 Delivery Device Oxygen Flow Rate FiO2 (21.00-100.00) % Sodium 137 (136-145) mEq/L Potassium 3.4 L (3.5-5.1) mEq/L Chloride 99 (98-107) mEq/L Carbon Dioxide 29 (21-32) mEq/L Anion Gap 12.4 (5-15) BUN 20 H (7-18) mg/dL Creatinine 1.8 H (0.55-1.02) mg/dL Est Cr Clr Drug Dosing 19.24 mL/min Estimated GFR (MDRD) 27 (>60) mL/min BUN/Creatinine Ratio 11.1 L (14-18) Glucose 120 H (83-115) mg/dL Lactic Acid (0.4-2.0) mmol/L Calcium 9.2 (8.5-10.1) mg/dL Phosphorus (2.6-4.7) mg/dL Magnesium 1.5 L (1.8-2.4) mg/dl Ferritin (8-252) ng/ml Total Bilirubin 0.6 (0.2-1.0) mg/dL AST 18 (15-37) U/L ALT 13 L (14-59) U/L Alkaline Phosphatase 54 (46-116) U/L Lactate Dehydrogenase 194 (81-234) U/L Troponin I < 0.017 (0.00-0.056) ng/mL C-Reactive Protein (<1.0) mg/dL NT-Pro-B Natriuret Pep 258 (0-450) pg/mL Total Protein 6.5 (6.4-8.2) g/dl Albumin 3.0 L (3.4-5.0) g/dl Globulin 3.5 gm/dL Albumin/Globulin Ratio 0.9 L (1-2) TSH 3rd Generation (0.358-3.74) uIU/mL Influenza Type A RNA (NEGATIVE) Influenza Type B RNA (NEGATIVE) SARS-CoV-2 RNA (SHAYNE) (NEGATIVE) 02/02/20 02/02/20 02/02/20 Range/Units 12:30 12:30 13:01 WBC (3.98-10.04) K/mm3 RBC (3.98-5.22) M/mm3 Hgb (11.2-15.7) gm/dl Hct (34.1-44.9) % MCV (79.4-94.8) fl MCH (25.6-32.2) pg MCHC (32.2-35.5) g/dl RDW Std Deviation (36.4-46.3) fL Plt Count (182-369) K/mm3 MPV (9.4-12.3) fl Neut % (Auto) (34.0-71.1) % Lymph % (Auto) (19.3-51.7) % [place] % (Auto) (4.7-12.5) % Eos % (Auto) (0.7-5.8) Baso % (Auto) (0.1-1.2) % Neut # (Auto) (1.56-6.13) K/mm3 Lymph # (Auto) (1.18-3.74) K/mm3 [place] # (Auto) (0.24-0.36) K/mm3 Eos # (Auto) (0.04-0.36) K/mm3 Baso # (Auto) (0.01-0.08) K/mm3 Neutrophils % (Manual) (40-60) % Band Neutrophils % (0-10) % Lymphocytes % (Manual) (20-40) % Atypical Lymphs % % Monocytes % (Manual) (2-10) % Eosinophils % (Manual) (0.7-5.8) % Basophils % (Manual) (0.1-1.2) Platelet Estimate RBC Morph Comment PT (9.7-12.0) SECONDS INR APTT (21.7-31.4) SECONDS D-Dimer, Quantitative (0.19-0.50) mg/L Puncture Site Rt radial ABG pH 7.40 (7.35-7.45) ABG pCO2 49.0 H (35.0-45.0) mmHg ABG pO2 120.0 H (80.0-100.0) mmHg ABG HCO3 29.4 H (22.0-26.0) meq/L ABG O2 Saturation 98.6 H (96.0-97.0) % ABG Base Excess 4.5 H (-2-2.0) Antonio Test Positive O2 Delivery Device Nasal cannula Oxygen Flow Rate 1.0 FiO2 24.00 (21.00-100.00) % Sodium (136-145) mEq/L Potassium (3.5-5.1) mEq/L Chloride (98-107) mEq/L Carbon Dioxide (21-32) mEq/L Anion Gap (5-15) BUN (7-18) mg/dL Creatinine (0.55-1.02) mg/dL Est Cr Clr Drug Dosing mL/min Estimated GFR (MDRD) (>60) mL/min BUN/Creatinine Ratio (14-18) Glucose (83-115) mg/dL Lactic Acid 1.4 (0.4-2.0) mmol/L Calcium (8.5-10.1) mg/dL Phosphorus (2.6-4.7) mg/dL Magnesium (1.8-2.4) mg/dl Ferritin 25 (8-252) ng/ml Total Bilirubin (0.2-1.0) mg/dL AST (15-37) U/L ALT (14-59) U/L Alkaline Phosphatase (46-116) U/L Lactate Dehydrogenase (81-234) U/L Troponin I (0.00-0.056) ng/mL C-Reactive Protein (<1.0) mg/dL NT-Pro-B Natriuret Pep (0-450) pg/mL Total Protein (6.4-8.2) g/dl Albumin (3.4-5.0) g/dl Globulin gm/dL Albumin/Globulin Ratio (1-2) TSH 3rd Generation (0.358-3.74) uIU/mL Influenza Type A RNA (NEGATIVE) Influenza Type B RNA (NEGATIVE) SARS-CoV-2 RNA (SHAYNE) (NEGATIVE) 02/02/20 02/03/20 02/03/20 Range/Units 19:05 02:00 04:34 WBC 5.14 (3.98-10.04) K/mm3 RBC 2.96 L (3.98-5.22) M/mm3 Hgb 8.6 L (11.2-15.7) gm/dl Hct 28.5 L (34.1-44.9) % MCV 96.3 H (79.4-94.8) fl MCH 29.1 (25.6-32.2) pg MCHC 30.2 L (32.2-35.5) g/dl RDW Std Deviation 45.5 (36.4-46.3) fL Plt Count 248 (182-369) K/mm3 MPV 9.5 (9.4-12.3) fl Neut % (Auto) 57.7 (34.0-71.1) % Lymph % (Auto) 25.9 (19.3-51.7) % [place] % (Auto) 11.7 (4.7-12.5) % Eos % (Auto) 3.7 (0.7-5.8) Baso % (Auto) 0.6 (0.1-1.2) % Neut # (Auto) 2.97 (1.56-6.13) K/mm3 Lymph # (Auto) 1.33 (1.18-3.74) K/mm3 [place] # (Auto) 0.60 H (0.24-0.36) K/mm3 Eos # (Auto) 0.19 (0.04-0.36) K/mm3 Baso # (Auto) 0.03 (0.01-0.08) K/mm3 Neutrophils % (Manual) (40-60) % Band Neutrophils % (0-10) % Lymphocytes % (Manual) (20-40) % Atypical Lymphs % % Monocytes % (Manual) (2-10) % Eosinophils % (Manual) (0.7-5.8) % Basophils % (Manual) (0.1-1.2) Platelet Estimate RBC Morph Comment PT (9.7-12.0) SECONDS INR APTT > 139.0 H* D 128.2 H* (21.7-31.4) SECONDS D-Dimer, Quantitative (0.19-0.50) mg/L Puncture Site ABG pH (7.35-7.45) ABG pCO2 (35.0-45.0) mmHg ABG pO2 (80.0-100.0) mmHg ABG HCO3 (22.0-26.0) meq/L ABG O2 Saturation (96.0-97.0) % ABG Base Excess (-2-2.0) Antonio Test O2 Delivery Device Oxygen Flow Rate FiO2 (21.00-100.00) % Sodium (136-145) mEq/L Potassium (3.5-5.1) mEq/L Chloride (98-107) mEq/L Carbon Dioxide (21-32) mEq/L Anion Gap (5-15) BUN (7-18) mg/dL Creatinine (0.55-1.02) mg/dL Est Cr Clr Drug Dosing mL/min Estimated GFR (MDRD) (>60) mL/min BUN/Creatinine Ratio (14-18) Glucose (83-115) mg/dL Lactic Acid (0.4-2.0) mmol/L Calcium (8.5-10.1) mg/dL Phosphorus (2.6-4.7) mg/dL Magnesium (1.8-2.4) mg/dl Ferritin (8-252) ng/ml Total Bilirubin (0.2-1.0) mg/dL AST (15-37) U/L ALT (14-59) U/L Alkaline Phosphatase (46-116) U/L Lactate Dehydrogenase (81-234) U/L Troponin I (0.00-0.056) ng/mL C-Reactive Protein (<1.0) mg/dL NT-Pro-B Natriuret Pep (0-450) pg/mL Total Protein (6.4-8.2) g/dl Albumin (3.4-5.0) g/dl Globulin gm/dL Albumin/Globulin Ratio (1-2) TSH 3rd Generation (0.358-3.74) uIU/mL Influenza Type A RNA (NEGATIVE) Influenza Type B RNA (NEGATIVE) SARS-CoV-2 RNA (SHAYNE) (NEGATIVE) 02/03/20 Range/Units 04:34 WBC (3.98-10.04) K/mm3 RBC (3.98-5.22) M/mm3 Hgb (11.2-15.7) gm/dl Hct (34.1-44.9) % MCV (79.4-94.8) fl MCH (25.6-32.2) pg MCHC (32.2-35.5) g/dl RDW Std Deviation (36.4-46.3) fL Plt Count (182-369) K/mm3 MPV (9.4-12.3) fl Neut % (Auto) (34.0-71.1) % Lymph % (Auto) (19.3-51.7) % [place] % (Auto) (4.7-12.5) % Eos % (Auto) (0.7-5.8) Baso % (Auto) (0.1-1.2) % Neut # (Auto) (1.56-6.13) K/mm3 Lymph # (Auto) (1.18-3.74) K/mm3 [place] # (Auto) (0.24-0.36) K/mm3 Eos # (Auto) (0.04-0.36) K/mm3 Baso # (Auto) (0.01-0.08) K/mm3 Neutrophils % (Manual) (40-60) % Band Neutrophils % (0-10) % Lymphocytes % (Manual) (20-40) % Atypical Lymphs % % Monocytes % (Manual) (2-10) % Eosinophils % (Manual) (0.7-5.8) % Basophils % (Manual) (0.1-1.2) Platelet Estimate RBC Morph Comment PT (9.7-12.0) SECONDS INR APTT (21.7-31.4) SECONDS D-Dimer, Quantitative (0.19-0.50) mg/L Puncture Site ABG pH (7.35-7.45) ABG pCO2 (35.0-45.0) mmHg ABG pO2 (80.0-100.0) mmHg ABG HCO3 (22.0-26.0) meq/L ABG O2 Saturation (96.0-97.0) % ABG Base Excess (-2-2.0) Antonio Test O2 Delivery Device Oxygen Flow Rate FiO2 (21.00-100.00) % Sodium 137 (136-145) mEq/L Potassium 4.0 (3.5-5.1) mEq/L Chloride 102 (98-107) mEq/L Carbon Dioxide 30 (21-32) mEq/L Anion Gap 9.0 (5-15) BUN 18 (7-18) mg/dL Creatinine 1.6 H (0.55-1.02) mg/dL Est Cr Clr Drug Dosing 21.65 mL/min Estimated GFR (MDRD) 31 (>60) mL/min BUN/Creatinine Ratio 11.3 L (14-18) Glucose 91 (83-115) mg/dL Lactic Acid (0.4-2.0) mmol/L Calcium 8.9 (8.5-10.1) mg/dL Phosphorus 4.4 (2.6-4.7) mg/dL Magnesium 3.0 H (1.8-2.4) mg/dl Ferritin (8-252) ng/ml Total Bilirubin 0.4 (0.2-1.0) mg/dL AST 18 (15-37) U/L ALT 14 (14-59) U/L Alkaline Phosphatase 46 (46-116) U/L Lactate Dehydrogenase (81-234) U/L Troponin I < 0.017 (0.00-0.056) ng/mL C-Reactive Protein 0.5 (<1.0) mg/dL NT-Pro-B Natriuret Pep (0-450) pg/mL Total Protein 6.1 L (6.4-8.2) g/dl Albumin 2.8 L (3.4-5.0) g/dl Globulin 3.3 gm/dL Albumin/Globulin Ratio 0.9 L (1-2) TSH 3rd Generation 2.285 (0.358-3.74) uIU/mL Influenza Type A RNA (NEGATIVE) Influenza Type B RNA (NEGATIVE) SARS-CoV-2 RNA (SHAYNE) (NEGATIVE) Med Orders - Current: Current Medications Acetaminophen (Tylenol) 650 mg PO Q4H PRN PRN Reason: Pain (Mild 1-3)/fever Last Admin: 02/02/20 20:42 Dose: 650 mg Documented by: Al Hydroxide/Mg Hydroxide (Mag-Al Plus) 30 ml PO Q4H PRN PRN Reason: Heartburn Albuterol/Ipratropium (Duoneb 3.0-0.5 Mg/3 Ml) 3 ml NEB Q8HRRT [facility] Last Admin: 02/03/20 06:01 Dose: 3 ml Documented by: Aspirin (Halfprin) 81 mg PO DAILY [facility] Cilostazol (Pletal) 100 mg PO BID [facility] Last Admin: 02/02/20 20:25 Dose: 100 mg Documented by: Citalopram Hydrobromide (Celexa) 10 mg PO DAILY [facility] Doxazosin Mesylate (Cardura) 2 mg PO DAILY [facility] Furosemide (Lasix) 40 mg PO DAILY [facility] Sodium Chloride (Normal Saline) 1,000 mls @ 50 mls/hr IV ASDIRECTED [facility] Last Admin: 02/02/20 18:17 Dose: 50 mls/hr Documented by: Heparin Sodium/Dextrose (Heparin 25,000 Units In D5w 500 Ml) 25,000 units in 500 mls @ 19.595 mls/hr IV TITRATE MILAGROS; Protocol Sodium Chloride (Normal Saline) 500 mls @ 500 mls/hr IV .BOLUS ONE Stop: 02/03/20 09:29 Sodium Chloride (Normal Saline) 100 mls @ 75 mls/hr IV ASDIRECTED [facility] Stop: 02/03/20 18:00 Metoprolol Succinate (Toprol Xl) 100 mg PO DAILY [facility] Pantoprazole Sodium (Protonix) 40 mg PO DAILY@0700 [facility] Last Admin: 02/03/20 06:13 Dose: 40 mg Documented by: Potassium Chloride (Klor-Con 10) 10 meq PO DAILY [facility] Ropinirole HCl (Requip) 0.5 mg PO BEDTIME [facility] Last Admin: 02/02/20 20:25 Dose: 0.5 mg Documented by: Rosuvastatin Calcium (Crestor) 10 mg PO DAILY [facility] Sodium Chloride (Saline Flush) 10 ml FLUSH ASDIRECTED PRN PRN Reason: Keep Vein Open Last Admin: 02/02/20 12:30 Dose: 10 ml Documented by: Sodium Chloride (Saline Flush) 10 ml FLUSH ONETIME PRN PRN Reason: IV FLUSH Stop: 02/03/20 18:00 Discontinued Medications Enoxaparin Sodium (Lovenox) 80 mg SUBCUT ONETIME ONE Stop: 12/15/20 13:54 Heparin Sodium (Porcine) (Heparin Sodium) 4,000 units IVPUSH ONETIME ONE Stop: 02/02/20 13:57 Last Admin: 02/02/20 14:12 Dose: 4,000 units Documented by: Sodium Chloride (Normal Saline) 1,000 mls @ 500 mls/hr IV ONETIME ONE Stop: 02/02/20 14:15 Last Admin: 02/02/20 12:28 Dose: 500 mls/hr Documented by: Heparin Sodium/Dextrose (Heparin 25,000 Units In D5w 500 Ml) 25,000 units in 500 mls @ 29.393 mls/hr IV TITRATE ONE; Protocol Stop: 02/03/20 06:57 Last Titration: 02/03/20 04:04 Dose: 12 units/kg/hr, 19.595 mls/hr Documented by: Magnesium Sulfate 4 gm/ Premix 50 mls @ 12.5 mls/hr IV ONETIME ONE Stop: 02/03/20 00:43 Last Admin: 02/03/20 00:47 Dose: 12.5 mls/hr Documented by: Iopamidol (Isovue-370 (76%)) 100 ml IVPUSH ONETIME ONE Stop: 02/03/20 08:50 Potassium Chloride (Klor-Con M20) 20 meq PO ONETIME ONE Stop: 02/02/20 17:30 Last Admin: 02/02/20 18:20 Dose: 20 meq Documented by: - Exam Quality Assessment: Supplemental Oxygen General: Alert, Oriented HEENT: Pupils Equal, Mucous Membr. Moist/[place]ck: Supple Lungs: Clear to Auscultation, Normal Respiratory Effort Cardiovascular: Regular Rate, Regular Rhythm GI/Abdominal Exam: Normal Bowel Sounds, Soft, Non-Tender, No Distention, No Abnormal Bruit Extremities: Normal Inspection, Normal Capillary Refill Skin: Ecchymosis (Bilateral arms) Psy/Mental Status: Alert, Normal Affect, Normal Mood Sepsis Event Note - Evaluation Sepsis Screening Result: No Definite Risk - Focused Exam Vital Signs: Vital Signs Temp Pulse Resp BP Pulse Ox Pulse Ox 02/03/20 08:33 96 02/03/20 07:56 97.7 F 66 16 133/56 L 97 02/03/20 06:01 97 02/03/20 04:15 98.2 F 55 L 18 134/54 L 94 L 02/03/20 02:20 97.7 F 57 L 18 115/49 L 90 L 02/02/20 23:46 98.1 F 58 L 18 94 L - Problem List & Annotations (1) Pulmonary embolism SNOMED Code(s): 07983848 Code(s): I26.99 - OTHER PULMONARY EMBOLISM WITHOUT ACUTE COR PULMONALE Status: Suspected Current Visit: Yes (2) PVD (peripheral vascular disease) with claudication SNOMED Code(s): 240772905, 168848473 Code(s): I73.9 - PERIPHERAL VASCULAR DISEASE, UNSPECIFIED Status: Acute Current Visit: Yes (3) HTN (hypertension) SNOMED Code(s): 09878642 Code(s): I10 - ESSENTIAL (PRIMARY) HYPERTENSION Status: Acute Current Visit: Yes (4) Chronic renal disease SNOMED Code(s): 038119824 Code(s): N18.9 - CHRONIC KIDNEY DISEASE, UNSPECIFIED Status: Acute Current Visit: Yes (5) Vagal reaction SNOMED Code(s): 965492719 Code(s): R55 - SYNCOPE AND COLLAPSE Status: Acute Current Visit: Yes (6) Elevated d-dimer SNOMED Code(s): 038021171 Code(s): R79.89 - OTHER SPECIFIED ABNORMAL FINDINGS OF BLOOD CHEMISTRY Status: Acute Current Visit: Yes (7) Hypoxia SNOMED Code(s): 198560360 Code(s): R09.02 - HYPOXEMIA Status: Acute Current Visit: Yes - Problem List Review Problem List Initiated/Reviewed/Updated: Yes - My Orders Last 24 Hours: My Active Orders 02/02/20 16:46 Resuscitation Status Routine 02/02/20 Dinner Heart Healthy Diet [DIET] 02/02/20 17:20 Oxygen Therapy [RC] PRN Up With Assistance [RC] BID VTE/DVT Education [RC] PER UNIT ROUTINE Vital Signs [RC] 00,04,08,12,16,20 Acetaminophen [TylenoL] 650 mg PO Q4H PRN 02/02/20 17:22 RT Aerosol Therapy [RC] ASDIRECTED 02/02/20 17:23 Patient Status [ADT] Routine 02/02/20 17:35 Alum Hydrox/Mag Hydrox/Simeth [Mag-Al Plus] 30 ml PO Q4H PRN 02/02/20 17:45 Albuterol/Ipratropium [DuoNeb 3.0-0.5 MG/3 ML] 3 ml NEB Q8HRRT Sodium Chloride 0.9% [Normal Saline] 1,000 ml IV ASDIRECTED 02/02/20 21:00 cilostazoL [Pletal] 100 mg PO BID rOPINIRole [Requip] 0.5 mg PO BEDTIME 02/03/20 PT Evaluation and Treatment [CONS] Routine 02/03/20 07:00 Pantoprazole [ProTONIX] 40 mg PO DAILY@0700 02/03/20 08:27 CTA Chest W WO Contrast [Ang Chest] [CT] Routine 02/03/20 08:30 Sodium Chloride 0.9% [Normal Saline] 500 ml IV .BOLUS 02/03/20 08:49 Sodium Chloride 0.9% [Saline Flush] 10 ml FLUSH ONETIME PRN 02/03/20 09:00 Aspirin [Halfprin] 81 mg PO DAILY Citalopram [Celexa] 10 mg PO DAILY Doxazosin [Cardura] 2 mg PO DAILY Furosemide [Lasix] 40 mg PO DAILY Metoprolol Succinate [Toprol XL] 100 mg PO DAILY Potassium Chloride [Klor-Con 10] 10 meq PO DAILY Rosuvastatin [Crestor] 10 mg PO DAILY Sodium Chloride 0.9% [Normal Saline] 100 ml IV ASDIRECTED 02/03/20 10:00 aPTT [PTT,PARTIAL THROMBOPLSTIN TIME] [COAG] Timed - Plan Plan:: Assessment 02/02/2020 84-year-old female who presents with dizziness during defecation and toileting for the last month found to be significantly hypoxemic by EMS and in the ED. * Patient has a significantly elevated D-dimer with hypoxemia making pulmonary embolism high on the differential. CTA was not performed because of her renal dysfunction, so patient was started on heparin drip with presumption of pulmonary embolism. * Goal overnight will be to increased her volume status in hopes that it can improve her renal function. If GFR is greater than 30 will consider doing CTA tomorrow. * COVID-19 was negative and other inflammatory markers were also negative. * Chest x-ray does show some minimal left base atelectasis, not likely causing this amount of hypoxemia. * Patient does have a history of smoking in the past and is wheezy on exam. Unknown how long she is been hypoxemic and this may be her chronic steady state. * Patient's dizziness is likely a vagal reaction either dropping of her blood pressure or more likely bradycardia. Patient presents with bradycardia to the ED. * Negative Dopplers of the lower extremities. * D-dimer 10 Anemia * Patient states that she has not noticed any blood in her stools and she does take iron so she does have some dark stools. * Hemoglobin was 8.9 and there is no more recent hemoglobin available. * Patient is on Pletal and aspirin 81 mg daily. She does take omeprazole which may help prevent gastric erosions. * Closely monitor hemoglobin secondary to heparin drip. * Stool studies for fecal occult blood will be useless secondary to iron intake. Hypertension/hyperlipidemia/peripheral vascular disease * Patient has significant hypertension on presentation * On the above for peripheral vascular disease and claudication * Left-sided carotid endarterectomy 3 months ago. Chronic renal insufficiency * Estimated GFR 28. Last GFR done in 2018 was the same. * Possible some secondary acute renal injury due to hypovolemia or intravascular/intrarenal volume reduction. * On lisinopril for renal protection. Hypokalemia/hypomagnesemia * Potassium 3.4 * Magnesium 1.5 02/03/2020 * Significant improvement in her symptoms today, but her blood pressure is labile. * Lisinopril has been held which may be contributing to the dizziness. * CTA of the chest was negative for pulmonary emboli but was consistent with emphysema. * Anemia did worsen slightly to hemoglobin of 8.6 * Heparin was stopped after negative CTA. * Physical therapy is working with her. * She has been weaned down to 0.5 L/min of FiO2 via nasal cannula * Renal function improved to a GFR of 31 and creatinine of 1.6. She was given 500 mL bolus of fluids prior to her CTA, but it was felt the CTA results outweighed the risks of kidney injury. If her CTA was positive she would have to be on anticoagulation for 3 to 6 months, but now she can have it stopped. * Potassium and magnesium have improved Plan * Admit to the floor on telemetry * FiO2 to keep SPO2 92% or greater * Stop heparin drip. * Continue physical therapy * Stop normal saline IV fluids at a low rate of 50 mL/h * Change diet to regular diet because patient is not eating well. * Continue to hold lisinopril at this time. 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 * Follow blood pressures closely. * Follow heart rate if she has another bowel movement and follow symptoms. * Replete magnesium and potassium * CBC, CMP, mag, phosphorus, TSH, repeat troponin in the morning * VTE prophylaxis with Lovenox * CODE STATUS: Full code
[2020-02-03] MEDS: Doxazosin 2 MG Tab PO SCH (09:28)
[2020-02-03] MEDS: Aspirin 81 MG Tab.EC PO SCH (09:28)
[2020-02-03] MEDS: Potassium Chloride 10 MEQ Tab.ER PO SCH (09:28)
[2020-02-03] MEDS: Citalopram 10 MG Tab PO SCH (09:28)
[2020-02-03] MEDS: Rosuvastatin 10 MG Tab PO SCH (09:28)
[2020-02-03] MEDS: Furosemide 40 MG Tab PO SCH (09:28)
[2020-02-03] MEDS: Metoprolol Succinate 50 MG Tab.ER PO SCH (09:29)
--- NOTE | 2020-02-03 09:58 | CT ---
CT chest Technique: Multiple axial sections through the chest were obtained. Intravenous contrast was utilized. Study has been performed as a pulmonary angiogram protocol. Comparison: No prior CT chest imaging is available Findings: Pulmonary arteries are fairly well opacified and show no filling defects to indicate definite pulmonary embolism. Thoracic aorta shows diffuse atherosclerotic change. Ascending aorta measures 3.8 cm which is at the upper limits of normal. No aneurysm is otherwise seen. Mediastinum and hilar regions show no adenopathy. Prominent coronary artery calcification is present. Numerous cysts are noted within both kidneys. Aortic stent is seen within an aneurysm. Layering calcified gallstones are seen within the gallbladder Emphysematous changes are seen on the lung window settings. No acute parenchymal change is otherwise seen. Several very small nodules are scattered within the lungs which measure less than 4 mm. Bone window settings were reviewed which show no acute osseous finding. There is a compression deformity being seen within L1 showing vertebroplasty. Scattered degenerative change is noted throughout the spine. Several mild compression deformities are seen within the thoracic spine which appear to be old. Impression: 1. Emphysematous change. 2. Several small nodules within the chest measuring less than 4 mm, I do not believe any further follow-up is needed of this finding. 3. No findings of pulmonary embolism. 4. Other incidental findings as noted above. Diagnostic code #2
[2020-02-03] MEDS: Magnesium Hydroxide 400 MG/5 ML Susp 30 ML Cup PO PRN (13:59)
[2020-02-03] MEDS: rOPINIRole 0.25 MG Tab PO SCH (21:42)
[2020-02-04] MEDS: Albuterol/Ipratropium 3.0-0.5 MG/3 ML Neb Soln NEB SCH ×3 (05:57→21:25)
[2020-02-04] MEDS: Pantoprazole 40 MG Tab.CR PO SCH (06:06)
[2020-02-04] MEDS: Acetaminophen 325 MG Tab PO PRN (06:09)
--- NOTE | 2020-02-04 08:38 | PCM.PN ---
- General Info Date of Service: 02/04/20 Admission Dx/Problem (Free Text): Admission Diagnosis/Problem Admission Diagnosis/Problem Hypoxia Subjective Update: No significant overnight or acute issues. She feels tired and a little symptomatic. She remains on 0.5L NC. Her HR has improved but her BP is about the same. She is afebrile w/o leukocytosis. Her Hgb is down to 8.0 grams today. No report of active bleeding or melena. Functional Status: Reports: Pain Controlled, Tolerating Diet, Ambulating - Review of Systems General: Denies: Fever, Chills HEENT: Denies: Contact Lenses Pulmonary: Denies: Shortness of Breath Cardiovascular: Reports: Edema, Lightheadedness. Denies: Chest Pain, Dyspnea on Exertion, Orthopnea Gastrointestinal: Denies: Abdominal Pain, Nausea, Vomiting Genitourinary: Denies: Incontinence Musculoskeletal: Denies: Joint Pain Skin: Reports: Bruising Neurological: Reports: Dizziness. Denies: Confusion, Syncope, Weakness Psychiatric: Denies: Confusion, Depression, Anxiety - Patient Data Vitals - Most Recent: Last Vital Signs Temp 36.8 C 02/04/20 07:25 Pulse 74 02/04/20 07:25 Resp 20 02/04/20 07:25 BP 123/76 02/04/20 07:25 Pulse Ox 93 L 02/04/20 07:25 Weight - Most Recent: 81.374 kg I&O - Last 24 Hours: Intake & Output 02/03/20 02/04/20 02/04/20 22:59 06:59 14:59 Intake Total 2010 300 Output Total 925 875 Balance 1085 -575 Lab Results Last 24 Hours: Laboratory Results - last 24 hr 02/03/20 02/04/20 02/04/20 Range/Units 10:23 07:30 07:30 WBC 4.86 (3.98-10.04) K/mm3 RBC 2.72 L (3.98-5.22) M/mm3 Hgb 8.0 L (11.2-15.7) gm/dl Hct 26.4 L (34.1-44.9) % MCV 97.1 H (79.4-94.8) fl MCH 29.4 (25.6-32.2) pg MCHC 30.3 L (32.2-35.5) g/dl RDW Std Deviation 46.7 H (36.4-46.3) fL Plt Count 212 (182-369) K/mm3 MPV 8.8 L (9.4-12.3) fl Neut % (Auto) 58.2 (34.0-71.1) % Lymph % (Auto) 25.3 (19.3-51.7) % [place] % (Auto) 13.4 H (4.7-12.5) % Eos % (Auto) 2.5 (0.7-5.8) Baso % (Auto) 0.4 (0.1-1.2) % Neut # (Auto) 2.83 (1.56-6.13) K/mm3 Lymph # (Auto) 1.23 (1.18-3.74) K/mm3 [place] # (Auto) 0.65 H (0.24-0.36) K/mm3 Eos # (Auto) 0.12 (0.04-0.36) K/mm3 Baso # (Auto) 0.02 (0.01-0.08) K/mm3 APTT 102.3 H* D (21.7-31.4) SECONDS Sodium 136 (136-145) mEq/L Potassium 4.0 (3.5-5.1) mEq/L Chloride 101 (98-107) mEq/L Carbon Dioxide 28 (21-32) mEq/L Anion Gap 11.0 (5-15) BUN 22 H (7-18) mg/dL Creatinine 1.7 H (0.55-1.02) mg/dL Est Cr Clr Drug Dosing 20.38 mL/min Estimated GFR (MDRD) 29 (>60) mL/min BUN/Creatinine Ratio 12.9 L (14-18) Glucose 97 (83-115) mg/dL Calcium 8.9 (8.5-10.1) mg/dL Magnesium 2.2 (1.8-2.4) mg/dl Med Orders - Current: Current Medications Acetaminophen (Tylenol) 650 mg PO Q4H PRN PRN Reason: Pain (Mild 1-3)/fever Last Admin: 02/04/20 06:09 Dose: 650 mg Documented by: Al Hydroxide/Mg Hydroxide (Mag-Al Plus) 30 ml PO Q4H PRN PRN Reason: Heartburn Albuterol/Ipratropium (Duoneb 3.0-0.5 Mg/3 Ml) 3 ml NEB Q8HRRT [facility] Last Admin: 02/04/20 05:57 Dose: 3 ml Documented by: Aspirin (Halfprin) 81 mg PO DAILY [facility] Last Admin: 02/03/20 09:28 Dose: 81 mg Documented by: Cilostazol (Pletal) 100 mg PO BID [facility] Last Admin: 02/03/20 21:43 Dose: 100 mg Documented by: Citalopram Hydrobromide (Celexa) 10 mg PO DAILY [facility] Last Admin: 02/03/20 09:28 Dose: 10 mg Documented by: Doxazosin Mesylate (Cardura) 2 mg PO DAILY [facility] Last Admin: 02/03/20 09:28 Dose: 2 mg Documented by: Furosemide (Lasix) 40 mg PO DAILY [facility] Last Admin: 02/03/20 09:28 Dose: 40 mg Documented by: Magnesium Hydroxide (Milk Of Magnesia) 30 ml PO Q6H PRN PRN Reason: Constipation Last Admin: 02/03/20 13:59 Dose: 30 ml Documented by: Metoprolol Succinate (Toprol Xl) 100 mg PO DAILY [facility] Last Admin: 02/03/20 09:29 Dose: 100 mg Documented by: Pantoprazole Sodium (Protonix) 40 mg PO DAILY@0700 [facility] Last Admin: 02/04/20 06:06 Dose: 40 mg Documented by: Potassium Chloride (Klor-Con 10) 10 meq PO DAILY [facility] Last Admin: 02/03/20 09:28 Dose: 10 meq Documented by: Ropinirole HCl (Requip) 0.5 mg PO BEDTIME [facility] Last Admin: 02/03/20 21:42 Dose: 0.5 mg Documented by: Rosuvastatin Calcium (Crestor) 10 mg PO DAILY [facility] Last Admin: 02/03/20 09:28 Dose: 10 mg Documented by: Sodium Chloride (Saline Flush) 10 ml FLUSH ASDIRECTED PRN PRN Reason: Keep Vein Open Last Admin: 02/02/20 12:30 Dose: 10 ml Documented by: Discontinued Medications Enoxaparin Sodium (Lovenox) 80 mg SUBCUT ONETIME ONE Stop: 02/02/20 13:54 Heparin Sodium (Porcine) (Heparin Sodium) 4,000 units IVPUSH ONETIME ONE Stop: 02/02/20 13:57 Last Admin: 02/02/20 14:12 Dose: 4,000 units Documented by: Sodium Chloride (Normal Saline) 1,000 mls @ 500 mls/hr IV ONETIME ONE Stop: 02/02/20 14:15 Last Admin: 02/02/20 12:28 Dose: 500 mls/hr Documented by: Heparin Sodium/Dextrose (Heparin 25,000 Units In D5w 500 Ml) 25,000 units in 500 mls @ 29.393 mls/hr IV TITRATE ONE; Protocol Stop: 02/03/20 06:57 Last Titration: 02/03/20 04:04 Dose: 12 units/kg/hr, 19.595 mls/hr Documented by: Sodium Chloride (Normal Saline) 1,000 mls @ 50 mls/hr IV ASDIRECTED [facility] Last Admin: 02/02/20 18:17 Dose: 50 mls/hr Documented by: Magnesium Sulfate 4 gm/ Premix 50 mls @ 12.5 mls/hr IV ONETIME ONE Stop: 02/03/20 00:43 Last Admin: 02/03/20 00:47 Dose: 12.5 mls/hr Documented by: Heparin Sodium/Dextrose (Heparin 25,000 Units In D5w 500 Ml) 25,000 units in 500 mls @ 19.595 mls/hr IV TITRATE MILAGROS; Protocol Sodium Chloride (Normal Saline) 500 mls @ 500 mls/hr IV .BOLUS ONE Stop: 02/03/20 09:29 Last Admin: 02/03/20 10:14 Dose: 500 mls/hr Documented by: Sodium Chloride (Normal Saline) 100 mls @ 75 mls/hr IV ASDIRECTED MILAGROS Stop: 02/03/20 18:00 Last Admin: 02/03/20 09:26 Dose: 75 mls/hr Documented by: Iopamidol (Isovue-370 (76%)) 100 ml IVPUSH ONETIME ONE Stop: 02/03/20 08:50 Last Admin: 02/03/20 09:26 Dose: 100 ml Documented by: Potassium Chloride (Klor-Con M20) 20 meq PO ONETIME ONE Stop: 02/02/20 17:30 Last Admin: 02/02/20 18:20 Dose: 20 meq Documented by: Sodium Chloride (Saline Flush) 10 ml FLUSH ONETIME PRN PRN Reason: IV FLUSH Stop: 02/03/20 18:00 Last Admin: 02/03/20 09:26 Dose: 10 ml Documented by: - Exam Quality Assessment: Supplemental Oxygen (0.5 L NC) General: Alert, Oriented, Cooperative, No Acute Distress HEENT: Pupils Equal, Pupils Reactive, EOMI, Mucous Membr. Moist/[place] Neck: Supple Lungs: Normal Respiratory Effort, Decreased Breath Sounds Cardiovascular: Regular Rate, Regular Rhythm GI/Abdominal Exam: Normal Bowel Sounds, Soft, Non-Tender, No Organomegaly, No Distention, No Abnormal Bruit, No Mass (Female) Exam: Deferred Back Exam: Normal Inspection, Decreased Range of Motion Extremities: Normal Inspection, Normal Range of Motion, Non-Tender, No Pedal Edema, Normal Capillary Refill Peripheral Pulses: 1+: Dorsalis Pedis (L), Dorsalis Pedis (R) Skin: Warm, Dry, Intact, Ecchymosis (on both upper extremities) Neurological: No New Focal Deficit Psy/Mental Status: Alert, Normal Affect, Normal Mood Sepsis Event Note - Evaluation Sepsis Screening Result: No Definite Risk - Focused Exam Vital Signs: Vital Signs Temp Pulse Resp BP Pulse Ox Pulse Ox 02/04/20 07:25 36.8 C 74 20 123/76 93 L 02/04/20 05:58 94 L 02/04/20 04:58 36.7 C 69 18 156/74 H 94 L 02/03/20 21:41 36.9 C 76 18 118/54 L 94 L 02/03/20 20:49 91 L - Problem List Review Problem List Initiated/Reviewed/Updated: Yes - Assessment Assessment:: Assessment Acute: 84-year-old female who presents with dizziness during defecation and toileting for the last month found to be significantly hypoxemic by EMS and in the ED. Vasovagal reaction Sinus Bradycardia Diastolic Hypotension Several small Nodules within the chest < 4 mm Elevated D-Dimer, Chest CTA negative Hypoxemia, now on 0.5 L NC * Patient has a significantly elevated D-dimer with hypoxemia making pulmonary embolism high on the differential. CTA negative for PE. Heparin gtt discontinued. * COVID-19 was negative and other inflammatory markers were also negative. * Chest x-ray does show some minimal left base atelectasis, not likely causing this amount of hypoxemia. * Patient does have a history of smoking in the past and is wheezy on exam. Unknown how long she is been hypoxemic and this may be her chronic steady state. * Patient's dizziness is likely a vagal reaction either dropping of her blood pressure or more likely bradycardia. Patient presents with bradycardia to the ED. * Per patient vasovagal episode has been going on for 1.5 months now * Negative Dopplex of the lower extremities. * Changes to BP regimen: cut down Cardura to 1 mg from 2 mg po daily and Me toprolol Succinate to 50 mg po daily from 100 mg. * BP meds wit holding parameters * Titrate to come off O2 * Will check for orthostasis Microcytic Hypochromic Anemia * Patient states that she has not noticed any blood in her stools and she does take iron so she does have some dark stools. * Hemoglobin was 8.9 and there is no more recent hemoglobin available--> Hgb today is 8.0 grams. * Patient is on Pletal and aspirin 81 mg daily. She does take omeprazole which may help prevent gastric erosions. * Suspect slow GI bleed. * Had a small BM this AM, stool nothing unusual. * She is now off Heparin gtt. * Closely monitor hemoglobin level. * Stool studies for fecal occult blood will be useless secondary to iron intake. Hypotension/hyperlipidemia/peripheral vascular disease * Patient has significant hypertension on presentation. * On the above for peripheral vascular disease and claudication. * Left-sided carotid endarterectomy 3 months ago. * BP med with holding parameters. Chronic renal insufficiency * Estimated GFR 28. Last GFR done in 2018 was the same. * Possible some secondary acute renal injury due to hypovolemia or in travascular/intrarenal volume reduction. * On lisinopril for renal protection. Hypokalemia/hypomagnesemia, resolved * Potassium 3.4-->4.0. * Magnesium 1.5-->2.2. Hypoalbuminemia * Albumin of 2.8. * Dietitian following. - Plan Plan:: Plan 02/02/20 * Admit to the floor on telemetry * FiO2 to keep SPO2 92% or greater * Stop heparin drip. * Continue physical therapy * Stop normal saline IV fluids at a low rate of 50 mL/h * Change diet to regular diet because patient is not eating well. * Continue to hold lisinopril at this time. 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 * Follow blood pressures closely. * Follow heart rate if she has another bowel movement and follow symptoms. * Replete magnesium and potassium * CBC, CMP, mag, phosphorus, TSH, repeat troponin in the morning * VTE prophylaxis with Lovenox * CODE STATUS: Full code 02/03/2020 * Significant improvement in her symptoms today, but her blood pressure is labile. * Lisinopril has been held which may be contributing to the dizziness. * CTA of the chest was negative for pulmonary emboli but was consistent with emphysema. * Anemia did worsen slightly to hemoglobin of 8.6 * Heparin was stopped after negative CTA. * Physical therapy is working with her. * She has been weaned down to 0.5 L/min of FiO2 via nasal cannula * Renal function improved to a GFR of 31 and creatinine of 1.6. She was given 500 mL bolus of fluids prior to her CTA, but it was felt the CTA results outweighed the risks of kidney injury. If her CTA was positive she would have to be on anticoagulation for 3 to 6 months, but now she can have it stopped. * Potassium and magnesium have improved 02/04/20 * Continue current treatment * Titrate to come off meds * May need nursing education and help with home medications * We went over her cardiac medications which likely causing her symptoms: hypotension and bradycardia * Will trim down her metoprolol dose and cardura * BP holding parameters * Continue lasix home dose * Routine AM labs * Fall precautions * PT/OT * SW/CM for d/c planning * VTE prophylaxis with heparin gtt. She is ambulatory and with dropping Hgb level, we will plan for SCDs instead * CODE STATUS: Full code * LOS > 96 hrs, she needs more time for tune up and medications adjustment
[2020-02-04] MEDS: Rosuvastatin 10 MG Tab PO SCH (10:05)
[2020-02-04] MEDS: Furosemide 40 MG Tab PO SCH (10:05)
[2020-02-04] MEDS: Citalopram 10 MG Tab PO SCH (10:05)
[2020-02-04] MEDS: Potassium Chloride 10 MEQ Tab.ER PO SCH (10:05)
[2020-02-04] MEDS: Aspirin 81 MG Tab.EC PO SCH (10:05)
[2020-02-04] MEDS: Magnesium Hydroxide 400 MG/5 ML Susp 30 ML Cup PO PRN (10:18)
[2020-02-04] MEDS: Metoprolol Succinate 50 MG Tab.ER PO SCH (13:35)
[2020-02-04] MEDS: Doxazosin 2 MG Tab PO SCH (13:35)
[2020-02-04] MEDS ORDERED: Ondansetron 4 MG/2 ML SDV IVPUSH PRN (16:03)
--- NOTE | 2020-02-04 16:29 | PCM.SN.2 ---
- Free Text/Narrative Note: 1610: Patient started to have b/l upper extremity tremors R>L with associated nausea but w/o vomiting or dizziness. She states this exactly what happened to her at home prior to coming in for hospitalization. Her vitals were stable. She improved after zofran was given. We are waiting for repeat labs.
[2020-02-04] MEDS: rOPINIRole 0.25 MG Tab PO SCH (20:56)
[2020-02-05] MEDS: Albuterol/Ipratropium 3.0-0.5 MG/3 ML Neb Soln NEB SCH ×3 (05:18→20:42)
[2020-02-05] MEDS: Pantoprazole 40 MG Tab.CR PO SCH (06:32)
[2020-02-05] MEDS: Rosuvastatin 10 MG Tab PO SCH (08:27)
[2020-02-05] MEDS: Potassium Chloride 10 MEQ Tab.ER PO SCH (08:27)
[2020-02-05] MEDS: Aspirin 81 MG Tab.EC PO SCH (08:28)
[2020-02-05] MEDS: Doxazosin 2 MG Tab PO SCH (08:28)
[2020-02-05] MEDS: Furosemide 40 MG Tab PO SCH (08:29)
[2020-02-05] MEDS: Metoprolol Succinate 50 MG Tab.ER PO SCH (08:29)
[2020-02-05] MEDS: Citalopram 10 MG Tab PO SCH (08:29)
--- NOTE | 2020-02-05 12:20 | PCM.PN ---
- General Info Date of Service: 02/05/20 Admission Dx/Problem (Free Text): Admission Diagnosis/Problem Admission Diagnosis/Problem Hypoxia Subjective Update: No significant overnight issues. She feels pretty good except for "sore all over" which she attributes it to her anti-cholesterol medication (statin). No more recurrent episode of what happened yesterday. BPs and heart rates have been stable. Hgb is stable. Functional Status: Reports: Pain Controlled, Tolerating Diet, Ambulating, Urinating - Review of Systems General: Denies: Fever, Chills HEENT: Denies: Headaches Pulmonary: Denies: Shortness of Breath, Cough Cardiovascular: Denies: Chest Pain, Dyspnea on Exertion, Lightheadedness Gastrointestinal: Denies: Abdominal Pain, Nausea, Vomiting Genitourinary: Denies: Incontinence Musculoskeletal: Reports: Other (sore and achy all over) Skin: Reports: No Symptoms Neurological: Denies: Confusion, Weakness Psychiatric: Denies: Depression, Anxiety - Patient Data Vitals - Most Recent: Last Vital Signs Temp 36.5 C 02/05/20 11:23 Pulse 82 02/05/20 11:23 Resp 16 02/05/20 11:23 BP 129/70 02/05/20 11:23 Pulse Ox 98 02/05/20 11:23 Orthostatic Blood Pressure [ 110/41 Standing] Orthostatic Blood Pressure [ 101/51 Sitting] Orthostatic Blood Pressure [ 114/49 Supine] Weight - Most Recent: 81.329 kg I&O - Last 24 Hours: Intake & Output 02/04/20 02/05/20 02/05/20 22:59 06:59 14:59 Intake Total 1380 350 420 Output Total 900 700 Balance 480 -350 420 Lab Results Last 24 Hours: Laboratory Results - last 24 hr 02/04/20 02/04/20 02/04/20 Range/Units 15:58 16:14 17:14 WBC (3.98-10.04) K/mm3 RBC (3.98-5.22) M/mm3 Hgb (11.2-15.7) gm/dl Hct (34.1-44.9) % MCV (79.4-94.8) fl MCH (25.6-32.2) pg MCHC (32.2-35.5) g/dl RDW Std Deviation (36.4-46.3) fL Plt Count (182-369) K/mm3 MPV (9.4-12.3) fl Neut % (Auto) (34.0-71.1) % Lymph % (Auto) (19.3-51.7) % [place] % (Auto) (4.7-12.5) % Eos % (Auto) (0.7-5.8) Baso % (Auto) (0.1-1.2) % Neut # (Auto) (1.56-6.13) K/mm3 Lymph # (Auto) (1.18-3.74) K/mm3 [place] # (Auto) (0.24-0.36) K/mm3 Eos # (Auto) (0.04-0.36) K/mm3 Baso # (Auto) (0.01-0.08) K/mm3 Sodium 135 L (136-145) mEq/L Potassium 3.7 (3.5-5.1) mEq/L Chloride 99 (98-107) mEq/L Carbon Dioxide 29 (21-32) mEq/L Anion Gap 10.7 (5-15) BUN 23 H (7-18) mg/dL Creatinine 1.8 H (0.55-1.02) mg/dL Est Cr Clr Drug Dosing 19.24 mL/min Estimated GFR (MDRD) 27 (>60) mL/min BUN/Creatinine Ratio 12.8 L (14-18) Glucose 143 H (83-115) mg/dL POC Glucose 158 H (83-110) mg/dL Calcium 9.0 (8.5-10.1) mg/dL Magnesium 2.1 (1.8-2.4) mg/dl Troponin I 0.017 (0.00-0.056) ng/mL Urine Color (Yellow) Urine Appearance (Clear) Urine pH (5.0-8.0) Ur Specific [place] (1.005-1.030) Urine Protein (Negative) Urine Glucose (UA) (Negative) Urine Ketones (Negative) Urine Occult Blood (Negative) Urine Nitrite (Negative) Urine Bilirubin (Negative) Urine Urobilinogen (0.2-1.0) Ur Leukocyte Esterase (Negative) U Hyaline Cast (Auto) (0-5) /lpf Urine RBC (0-5) /hpf Urine WBC (0-5) /hpf Urine WBC Clumps (NOT SEEN) /hpf Ur Epithelial Cells (0-5) /hpf Urine Bacteria (FEW) /hpf Urine Mucus (FEW) /hpf 02/05/20 02/05/20 02/05/20 Range/Units 00:05 07:54 07:54 WBC 5.18 (3.98-10.04) K/mm3 RBC 2.76 L (3.98-5.22) M/mm3 Hgb 8.1 L (11.2-15.7) gm/dl Hct 26.8 L (34.1-44.9) % MCV 97.1 H (79.4-94.8) fl MCH 29.3 (25.6-32.2) pg MCHC 30.2 L (32.2-35.5) g/dl RDW Std Deviation 47.6 H (36.4-46.3) fL Plt Count 215 (182-369) K/mm3 MPV 8.8 L (9.4-12.3) fl Neut % (Auto) 67.2 (34.0-71.1) % Lymph % (Auto) 19.1 L (19.3-51.7) % [place] % (Auto) 11.4 (4.7-12.5) % Eos % (Auto) 1.9 (0.7-5.8) Baso % (Auto) 0.2 (0.1-1.2) % Neut # (Auto) 3.48 (1.56-6.13) K/mm3 Lymph # (Auto) 0.99 L (1.18-3.74) K/mm3 [place] # (Auto) 0.59 H (0.24-0.36) K/mm3 Eos # (Auto) 0.10 (0.04-0.36) K/mm3 Baso # (Auto) 0.01 (0.01-0.08) K/mm3 Sodium 136 (136-145) mEq/L Potassium 4.1 (3.5-5.1) mEq/L Chloride 99 (98-107) mEq/L Carbon Dioxide 31 (21-32) mEq/L Anion Gap 10.1 (5-15) BUN 25 H (7-18) mg/dL Creatinine 1.7 H (0.55-1.02) mg/dL Est Cr Clr Drug Dosing 20.38 mL/min Estimated GFR (MDRD) 29 (>60) mL/min BUN/Creatinine Ratio 14.7 (14-18) Glucose 103 (83-115) mg/dL POC Glucose (83-110) mg/dL Calcium 9.0 (8.5-10.1) mg/dL Magnesium 1.9 (1.8-2.4) mg/dl Troponin I (0.00-0.056) ng/mL Urine Color Yellow (Yellow) Urine Appearance Clear (Clear) Urine pH 6.0 (5.0-8.0) Ur Specific [place] 1.020 (1.005-1.030) Urine Protein Negative (Negative) Urine Glucose (UA) Negative (Negative) Urine Ketones Negative (Negative) Urine Occult Blood Negative (Negative) Urine Nitrite Negative (Negative) Urine Bilirubin Negative (Negative) Urine Urobilinogen 0.2 (0.2-1.0) Ur Leukocyte Esterase 1+ H (Negative) U Hyaline Cast (Auto) 5-10 H (0-5) /lpf Urine RBC 0-5 (0-5) /hpf Urine WBC 30-40 H (0-5) /hpf Urine WBC Clumps Rare (NOT SEEN) /hpf Ur Epithelial Cells 10-20 H (0-5) /hpf Urine Bacteria Moderate H (FEW) /hpf Urine Mucus Rare (FEW) /hpf Med Orders - Current: Current Medications Acetaminophen (Tylenol) 650 mg PO Q4H PRN PRN Reason: Pain (Mild 1-3)/fever Last Admin: 02/04/20 06:09 Dose: 650 mg Documented by: Al Hydroxide/Mg Hydroxide (Mag-Al Plus) 30 ml PO Q4H PRN PRN Reason: Heartburn Albuterol/Ipratropium (Duoneb 3.0-0.5 Mg/3 Ml) 3 ml NEB Q8HRRT [facility] Last Admin: 02/05/20 05:18 Dose: 3 ml Documented by: Aspirin (Halfprin) 81 mg PO DAILY [facility] Last Admin: 02/05/20 08:28 Dose: 81 mg Documented by: Cilostazol (Pletal) 100 mg PO BID [facility] Last Admin: 02/05/20 08:29 Dose: 100 mg Documented by: Citalopram Hydrobromide (Celexa) 10 mg PO DAILY [facility] Last Admin: 12/18/20 08:29 Dose: 10 mg Documented by: Doxazosin Mesylate (Cardura) 1 mg PO DAILY [facility] Last Admin: 02/05/20 08:28 Dose: 1 mg Documented by: Furosemide (Lasix) 40 mg PO DAILY [facility] Last Admin: 02/05/20 08:29 Dose: 40 mg Documented by: Magnesium Hydroxide (Milk Of Magnesia) 30 ml PO Q6H PRN PRN Reason: Constipation Last Admin: 02/04/20 10:18 Dose: 30 ml Documented by: Metoprolol Succinate (Toprol Xl) 50 mg PO DAILY [facility] Last Admin: 02/05/20 08:29 Dose: 50 mg Documented by: Ondansetron HCl (Zofran) 4 mg IVPUSH Q4H PRN PRN Reason: Nausea Last Admin: 02/04/20 16:14 Dose: 4 mg Documented by: Pantoprazole Sodium (Protonix) 40 mg PO DAILY@0700 [facility] Last Admin: 02/05/20 06:32 Dose: 40 mg Documented by: Potassium Chloride (Klor-Con 10) 10 meq PO DAILY [facility] Last Admin: 02/05/20 08:27 Dose: 10 meq Documented by: Ropinirole HCl (Requip) 0.5 mg PO BEDTIME [facility] Last Admin: 02/04/20 20:56 Dose: 0.5 mg Documented by: Rosuvastatin Calcium (Crestor) 10 mg PO DAILY [facility] Last Admin: 02/05/20 08:27 Dose: 10 mg Documented by: Sodium Chloride (Saline Flush) 10 ml FLUSH ASDIRECTED PRN PRN Reason: Keep Vein Open Last Admin: 02/02/20 12:30 Dose: 10 ml Documented by: Discontinued Medications Doxazosin Mesylate (Cardura) 2 mg PO DAILY [facility] Last Admin: 02/04/20 13:35 Dose: Not Given Documented by: Enoxaparin Sodium (Lovenox) 80 mg SUBCUT ONETIME ONE Stop: 02/02/20 13:54 Heparin Sodium (Porcine) (Heparin Sodium) 4,000 units IVPUSH ONETIME ONE Stop: 02/02/20 13:57 Last Admin: 02/02/20 14:12 Dose: 4,000 units Documented by: Sodium Chloride (Normal Saline) 1,000 mls @ 500 mls/hr IV ONETIME ONE Stop: 02/02/20 14:15 Last Admin: 02/02/20 12:28 Dose: 500 mls/hr Documented by: Heparin Sodium/Dextrose (Heparin 25,000 Units In D5w 500 Ml) 25,000 units in 500 mls @ 29.393 mls/hr IV TITRATE ONE; Protocol Stop: 02/03/20 06:57 Last Titration: 02/03/20 04:04 Dose: 12 units/kg/hr, 19.595 mls/hr Documented by: Sodium Chloride (Normal Saline) 1,000 mls @ 50 mls/hr IV ASDIRECTED MILAGROS Last Admin: 02/02/20 18:17 Dose: 50 mls/hr Documented by: Magnesium Sulfate 4 gm/ Premix 50 mls @ 12.5 mls/hr IV ONETIME ONE Stop: 02/03/20 00:43 Last Admin: 02/03/20 00:47 Dose: 12.5 mls/hr Documented by: Heparin Sodium/Dextrose (Heparin 25,000 Units In D5w 500 Ml) 25,000 units in 500 mls @ 19.595 mls/hr IV TITRATE MILAGROS; Protocol Sodium Chloride (Normal Saline) 500 mls @ 500 mls/hr IV .BOLUS ONE Stop: 02/03/20 09:29 Last Admin: 02/03/20 10:14 Dose: 500 mls/hr Documented by: Sodium Chloride (Normal Saline) 100 mls @ 75 mls/hr IV ASDIRECTED MILAGROS Stop: 02/03/20 18:00 Last Admin: 02/03/20 09:26 Dose: 75 mls/hr Documented by: Iopamidol (Isovue-370 (76%)) 100 ml IVPUSH ONETIME ONE Stop: 02/03/20 08:50 Last Admin: 02/03/20 09:26 Dose: 100 ml Documented by: Metoprolol Succinate (Toprol Xl) 100 mg PO DAILY MILAGROS Last Admin: 02/04/20 13:35 Dose: Not Given Documented by: Potassium Chloride (Klor-Con M20) 20 meq PO ONETIME ONE Stop: 02/02/20 17:30 Last Admin: 02/02/20 18:20 Dose: 20 meq Documented by: Sodium Chloride (Saline Flush) 10 ml FLUSH ONETIME PRN PRN Reason: IV FLUSH Stop: 02/03/20 18:00 Last Admin: 02/03/20 09:26 Dose: 10 ml Documented by: - Exam Quality Assessment: Supplemental Oxygen General: Alert, Oriented, Cooperative, No Acute Distress HEENT: Pupils Equal, Pupils Reactive, EOMI, Mucous Membr. Moist/[place] Neck: Supple Lungs: Normal Respiratory Effort, Decreased Breath Sounds, Crackles Cardiovascular: Regular Rate, Regular Rhythm GI/Abdominal Exam: Normal Bowel Sounds, Soft, Non-Tender, No Organomegaly, No Distention, No Abnormal Bruit, No Mass, Pelvis Stable (Female) Exam: Deferred Back Exam: Normal Inspection, Decreased Range of Motion Extremities: Normal Inspection, Normal Range of Motion, Non-Tender, No Pedal Edema, Normal Capillary Refill Peripheral Pulses: 2+: Dorsalis Pedis (L), Dorsalis Pedis (R) Skin: Warm, Dry, Intact, Ecchymosis Neurological: No New Focal Deficit Psy/Mental Status: Alert, Normal Affect, Normal Mood Sepsis Event Note - Evaluation Sepsis Screening Result: No Definite Risk - Focused Exam Vital Signs: Vital Signs Temp Pulse Resp BP Pulse Ox Pulse Ox 02/05/20 11:23 36.5 C 82 16 129/70 98 02/05/20 08:29 94 144/66 H 02/05/20 08:28 144/66 H 02/05/20 07:45 36.3 C 94 18 144/66 H 97 02/05/20 05:19 93 L 02/05/20 05:18 87 18 162/73 H 93 L - Problem List Review Problem List Initiated/Reviewed/Updated: Yes - My Orders Last 24 Hours: My Active Orders 02/04/20 13:36 Antiembolic Devices [RC] PER UNIT ROUTINE Sequential Compression Device [OM.PC] Routine 02/04/20 16:03 Ondansetron [Zofran] 4 mg IVPUSH Q4H PRN 02/04/20 17:04 EKG Documentation Completion [RC] ASDIRECTED EKG 12 Lead [EK] Stat 02/05/20 09:00 Doxazosin [Cardura] 1 mg PO DAILY Metoprolol Succinate [Toprol XL] 50 mg PO DAILY - Assessment Assessment:: Assessment Acute: 84-year-old female who presents with dizziness during defecation and toileting for the last month found to be significantly hypoxemic by EMS and in the ED. Vasovagal reaction, resolved Sinus Bradycardia, resolved Diastolic Hypotension, resolved Several small Nodules within the chest < 4 mm Elevated D-Dimer, Chest CTA negative Hypoxemia, now on RA * Patient has a significantly elevated D-dimer with hypoxemia making pulmonary embolism high on the differential. CTA negative for PE. Heparin gtt discontinued. * COVID-19 was negative and other inflammatory markers were also negative. * Chest x-ray does show some minimal left base atelectasis, not likely causing this amount of hypoxemia. * Patient does have a history of smoking in the past and is wheezy on exam. Unknown how long she is been hypoxemic and this may be her chronic steady state. * Patient's dizziness is likely a vagal reaction either dropping of her blood pressure or more likely bradycardia. Patient presents with bradycardia to the ED. * Per patient vasovagal episode has been going on for 1.5 months now. * Negative Dopplex of the lower extremities. * Changes to BP regimen: cut down Cardura to 1 mg from 2 mg po daily and Metoprolol Succinate to 50 mg po daily from 100 mg. * BP meds wit holding parameters. * Now off O2. * Negative for orthostasis. Microcytic Hypochromic Anemia * Patient states that she has not noticed any blood in her stools and she does take iron so she does have some dark stools. * Hemoglobin was 8.9 and there is no more recent hemoglobin available--> Hgb today is 8.0 grams. * Patient is on Pletal and aspirin 81 mg daily. She does take omeprazole which may help prevent gastric erosions. * Suspect slow GI bleed. * Had a small BM this AM, stool nothing unusual. * She is now off Heparin gtt. * Closely monitor hemoglobin level. * Stool studies for fecal occult blood will be useless secondary to iron intake. Hypotension/hyperlipidemia/peripheral vascular disease * Patient has significant hypertension on presentation. * On the above for peripheral vascular disease and claudication. * Left-sided carotid endarterectomy 3 months ago. * BP med with holding parameters. * Diastolic hypotension, resolved. Chronic renal insufficiency * Estimated GFR 28. Last GFR done in 2018 was the same. * Possible some secondary acute renal injury due to hypovolemia or intravascular/intrarenal volume reduction. * On lisinopril for renal protection. Hypokalemia/hypomagnesemia, resolved * Potassium 3.4-->4.0. * Magnesium 1.5-->2.2. Hypoalbuminemia * Albumin of 2.8. * Dietitian following. Possible Statin Intolerance * Complaints of aches and pain all over, not new. * We will hold statin dose tonight. - Plan Plan:: Plan 02/02/20 * Admit to the floor on telemetry * FiO2 to keep SPO2 92% or greater * Stop heparin drip. * Continue physical therapy * Stop normal saline IV fluids at a low rate of 50 mL/h * Change diet to regular diet because patient is not eating well. * Continue to hold lisinopril at this time. 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 * Follow blood pressures closely. * Follow heart rate if she has another bowel movement and follow symptoms. * Replete magnesium and potassium * CBC, CMP, mag, phosphorus, TSH, repeat troponin in the morning * VTE prophylaxis with Lovenox * CODE STATUS: Full code 02/03/2020 * Significant improvement in her symptoms today, but her blood pressure is labile. * Lisinopril has been held which may be contributing to the dizziness. * CTA of the chest was negative for pulmonary emboli but was consistent with emphysema. * Anemia did worsen slightly to hemoglobin of 8.6 * Heparin was stopped after negative CTA. * Physical therapy is working with her. * She has been weaned down to 0.5 L/min of FiO2 via nasal cannula * Renal function improved to a GFR of 31 and creatinine of 1.6. She was given 500 mL bolus of fluids prior to her CTA, but it was felt the CTA results outweighed the risks of kidney injury. If her CTA was positive she would have to be on anticoagulation for 3 to 6 months, but now she can have it stopped. * Potassium and magnesium have improved 02/04/20 * Continue current treatment * Titrate to come off meds * May need nursing education and help with home medications * We went over her cardiac medications which likely causing her symptoms: hypotension and bradycardia * Will trim down her metoprolol dose and cardura * BP holding parameters * Continue lasix home dose * Routine AM labs * Fall precautions * PT/OT * SW/CM for d/c planning * VTE prophylaxis with heparin gtt. She is ambulatory and with dropping Hgb level, we will plan for SCDs instead * CODE STATUS: Full code * LOS > 96 hrs, she needs more time for tune up and medications adjustment 02/05/20 * Continue current treatment * May need nursing education and help with home medications * Continue lasix home dose but hold statin dose tonight * Routine AM labs * Continue Fall precautions and PT/OT * SW/CM for d/c planning * VTE prophylaxis: SCDs * CODE STATUS: Full code * Discharge +/- this weekend if she remains stable * LOS > 96 hrs, she needs more time for tune up and medications adjustment
[2020-02-05] MEDS: rOPINIRole 0.25 MG Tab PO SCH (20:30)
[2020-02-06 05:31] VITALS: PULSE 80
[2020-02-06] MEDS: Albuterol/Ipratropium 3.0-0.5 MG/3 ML Neb Soln NEB SCH (05:59)
--- NOTE | 2020-02-06 06:40 | PCM.DCSUM1 ---
Discharge Summary - Hospital Course Brief History: This is an 84 yo elderly white female with past medical hx/o Impaired Vision, HTN, HLD, Left Carotid Stenosis S/p Endardarectomy, Chronic Diarrhea, Diverticulosis, LLQ Pain, Urinary Incontinence, Hx/o Rectocele/Cystocele, Lumbar Disc Herniation, Hx/o Closed Compression Fracture, MANINDER, Lichen Sclerosus, MANINDER, Anxiety and Obesity who was admitted for Vasovagal Reaction. Diagnosis: Stroke: No Modified Story Scale: No Symptoms at All Modified Daniel Scale Score: 0 - Discharge Data Discharge Date: 02/06/20 Discharge Disposition: Home, Self-Care 01 Condition: Good - Referral to Home Health Primary Care Physician: Rowena Huston MD - Patient Summary/Data Operative Procedure(s) Performed: None Complications: None Consults: Consultations 02/03/20 PT Evaluation and Treatment [CONS] Routine Recommended Follow-up Testing/Procedures: None Planned Operative Procedure(s) after DC: None Hospital Course: Patient had lightheadedness and dizziness during voiding that has been going for 1.5 months. Her basic work up revealed no obvious source. She had an elevated d-dimer but her x-ray, duplex ultrasound and chest angiogram were all negative for acute abnormal findings. However during her brief hospitalization, she was found bradycardiac with hear rates in the 50s and in diastolic hypotension. She improved after we adjusted her blood pressure regimen. Her hospital hospital course was fairly uncomplicated. Once medically stable, she was discharged home with plans to follow up with her PCP in 1 week. - Patient Instructions Diet: Heart Healthy Diet Activity: As Tolerated Driving: Do Not Drive Showering/Bathing: May Shower Notify Provider of: Fever, Increased Pain, Swelling and Redness, Drainage, Nausea and/or Vomiting - Discharge Plan *PRESCRIPTION DRUG MONITORING PROGRAM REVIEWED*: No *COPY OF PRESCRIPTION DRUG MONITORING REPORT IN PATIENT HONG: No Home Medications: Home Meds Aspirin [Treasure Aspirin EC] 81 mg PO DAILY 04/03/16 [History] Cilostazol [Pletal] 100 mg PO BID 04/03/16 [History] Citalopram Hydrobromide [Celexa] 10 mg PO DAILY 04/03/16 [History] Metoprolol Succinate [Toprol XL] 100 mg PO DAILY 04/03/16 [History] atorvaSTATin [Lipitor] 40 mg PO DAILY 04/03/16 [History] Acetaminophen [Tylenol Extra Strength] 650 mg PO Q8HR PRN 04/24/17 [History] Doxazosin Mesylate [Cardura] 2 mg PO DAILY 06/26/19 [History] Furosemide [Lasix] 40 mg PO DAILY 06/26/19 [History] Omeprazole 20 mg PO DAILY 06/26/19 [History] Potassium Chloride [Klor-Con M10] 10 meq PO DAILY 06/26/19 [History] rOPINIRole [Requip] 0.5 mg PO BEDTIME 06/26/19 [History] Iron Polysaccharides Complex [Ferrex 150] 1 tab PO DAILY 02/02/20 [History] lisinopriL [Prinivil] 5 mg PO DAILY #0 02/06/20 [Rx] Oxygen Therapy Mode: Room Air Patient Handouts: Preventing Iron Deficiency Anemia, Adult, Hypotension, Eas y-to-Read, Bradycardia, Adult, Near-Syncope, [id number] Referrals: Rowena Huston MD [Primary Care Provider] - (Please call and schedule a follow up with Dr. Huston in 1 week. ) - Discharge Summary/Plan Comment DC Time >30 min.: No Discharge Summary/Plan Comment: Discharge to home with outpatient PT - General Info Date of Service: 02/06/20 Admission Dx/Problem (Free Text: Admission Diagnosis/Problem Admission Diagnosis/Problem Hypoxia Subjective Update: No significant overnight issues. She feels pretty good except for "sore all over" which she attributes it to her anti-cholesterol medication (statin). No more recurrent episode of what happened yesterday. BPs and heart rates have been stable. Hgb is stable. Functional Status: Reports: Pain Controlled, Tolerating Diet, Ambulating, Urinating. Denies: New Symptoms - Review of Systems General: Denies: Fever, Chills HEENT: Denies: Contact Lenses Pulmonary: Denies: Shortness of Breath, Cough Cardiovascular: Denies: Chest Pain, Edema, Lightheadedness Gastrointestinal: Denies: Abdominal Pain, Nausea, Vomiting Genitourinary: Denies: Incontinence Musculoskeletal: Denies: Joint Pain Skin: Denies: Rash Neurological: Denies: Confusion, Dizziness, Weakness Psychiatric: Denies: Depression, Anxiety - Patient Data Vitals - Most Recent: Last Vital Signs Temp 36.6 C 12/19/20 04:36 Pulse 80 02/06/20 04:36 Resp 12 02/06/20 04:36 BP 143/78 H 02/06/20 04:36 Pulse Ox 92 L 02/06/20 06:00 Orthostatic Blood Pressure [ 110/41 Standing] Orthostatic Blood Pressure [ 101/51 Sitting] Orthostatic Blood Pressure [ 114/49 Supine] Weight - Most Recent: 80.331 kg I&O - Last 24 hours: Intake & Output 02/05/20 02/05/20 02/06/20 14:59 22:59 06:59 Intake Total 420 790 400 Output Total 1800 1125 Balance 420 -9609 -202 Lab Results - Last 24 hrs: Laboratory Results - last 24 hr 02/05/20 02/05/20 Range/Units 07:54 07:54 WBC 5.18 (3.98-10.04) K/mm3 RBC 2.76 L (3.98-5.22) M/mm3 Hgb 8.1 L (11.2-15.7) gm/dl Hct 26.8 L (34.1-44.9) % MCV 97.1 H (79.4-94.8) fl MCH 29.3 (25.6-32.2) pg MCHC 30.2 L (32.2-35.5) g/dl RDW Std Deviation 47.6 H (36.4-46.3) fL Plt Count 215 (182-369) K/mm3 MPV 8.8 L (9.4-12.3) fl Neut % (Auto) 67.2 (34.0-71.1) % Lymph % (Auto) 19.1 L (19.3-51.7) % [place] % (Auto) 11.4 (4.7-12.5) % Eos % (Auto) 1.9 (0.7-5.8) Baso % (Auto) 0.2 (0.1-1.2) % Neut # (Auto) 3.48 (1.56-6.13) K/mm3 Lymph # (Auto) 0.99 L (1.18-3.74) K/mm3 [place] # (Auto) 0.59 H (0.24-0.36) K/mm3 Eos # (Auto) 0.10 (0.04-0.36) K/mm3 Baso # (Auto) 0.01 (0.01-0.08) K/mm3 Sodium 136 (136-145) mEq/L Potassium 4.1 (3.5-5.1) mEq/L Chloride 99 (98-107) mEq/L Carbon Dioxide 31 (21-32) mEq/L Anion Gap 10.1 (5-15) BUN 25 H (7-18) mg/dL Creatinine 1.7 H (0.55-1.02) mg/dL Est Cr Clr Drug Dosing 20.38 mL/min Estimated GFR (MDRD) 29 (>60) mL/min BUN/Creatinine Ratio 14.7 (14-18) Glucose 103 (83-115) mg/dL Calcium 9.0 (8.5-10.1) mg/dL Magnesium 1.9 (1.8-2.4) mg/dl Med Orders - Current: Current Medications Acetaminophen (Tylenol) 650 mg PO Q4H PRN PRN Reason: Pain (Mild 1-3)/fever Last Admin: 02/04/20 06:09 Dose: 650 mg Documented by: Al Hydroxide/Mg Hydroxide (Mag-Al Plus) 30 ml PO Q4H PRN PRN Reason: Heartburn Albuterol/Ipratropium (Duoneb 3.0-0.5 Mg/3 Ml) 3 ml NEB Q8HRRT [facility] Last Admin: 02/06/20 05:59 Dose: 3 ml Documented by: Aspirin (Halfprin) 81 mg PO DAILY [facility] Last Admin: 02/05/20 08:28 Dose: 81 mg Documented by: Cilostazol (Pletal) 100 mg PO BID [facility] Last Admin: 02/05/20 20:29 Dose: 100 mg Documented by: Citalopram Hydrobromide (Celexa) 10 mg PO DAILY [facility] Last Admin: 02/05/20 08:29 Dose: 10 mg Documented by: Doxazosin Mesylate (Cardura) 1 mg PO DAILY [facility] Last Admin: 02/05/20 08:28 Dose: 1 mg Documented by: Furosemide (Lasix) 40 mg PO DAILY [facility] Last Admin: 02/05/20 08:29 Dose: 40 mg Documented by: Magnesium Hydroxide (Milk Of Magnesia) 30 ml PO Q6H PRN PRN Reason: Constipation Last Admin: 02/04/20 10:18 Dose: 30 ml Documented by: Metoprolol Succinate (Toprol Xl) 50 mg PO DAILY [facility] Last Admin: 02/05/20 08:29 Dose: 50 mg Documented by: Ondansetron HCl (Zofran) 4 mg IVPUSH Q4H PRN PRN Reason: Nausea Last Admin: 02/04/20 16:14 Dose: 4 mg Documented by: Pantoprazole Sodium (Protonix) 40 mg PO DAILY@0700 [facility] Last Admin: 02/05/20 06:32 Dose: 40 mg Documented by: Potassium Chloride (Klor-Con 10) 10 meq PO DAILY [facility] Last Admin: 02/05/20 08:27 Dose: 10 meq Documented by: Ropinirole HCl (Requip) 0.5 mg PO BEDTIME [facility] Last Admin: 02/05/20 20:30 Dose: 0.5 mg Documented by: Sodium Chloride (Saline Flush) 10 ml FLUSH ASDIRECTED PRN PRN Reason: Keep Vein Open Last Admin: 02/02/20 12:30 Dose: 10 ml Documented by: Discontinued Medications Doxazosin Mesylate (Cardura) 2 mg PO DAILY [facility] Last Admin: 02/04/20 13:35 Dose: Not Given Documented by: Enoxaparin Sodium (Lovenox) 80 mg SUBCUT ONETIME ONE Stop: 02/02/20 13:54 Heparin Sodium (Porcine) (Heparin Sodium) 4,000 units IVPUSH ONETIME ONE Stop: 02/02/20 13:57 Last Admin: 02/02/20 14:12 Dose: 4,000 units Documented by: Sodium Chloride (Normal Saline) 1,000 mls @ 500 mls/hr IV ONETIME ONE Stop: 02/02/20 14:15 Last Admin: 02/02/20 12:28 Dose: 500 mls/hr Documented by: Heparin Sodium/Dextrose (Heparin 25,000 Units In D5w 500 Ml) 25,000 units in 500 mls @ 29.393 mls/hr IV TITRATE ONE; Protocol Stop: 02/03/20 06:57 Last Titration: 02/03/20 04:04 Dose: 12 units/kg/hr, 19.595 mls/hr Documented by: Sodium Chloride (Normal Saline) 1,000 mls @ 50 mls/hr IV ASDIRECTED [facility] Last Admin: 02/02/20 18:17 Dose: 50 mls/hr Documented by: Magnesium Sulfate 4 gm/ Premix 50 mls @ 12.5 mls/hr IV ONETIME ONE Stop: 02/03/20 00:43 Last Admin: 02/03/20 00:47 Dose: 12.5 mls/hr Documented by: Heparin Sodium/Dextrose (Heparin 25,000 Units In D5w 500 Ml) 25,000 units in 500 mls @ 19.595 mls/hr IV TITRATE MILAGROS; Protocol Sodium Chloride (Normal Saline) 500 mls @ 500 mls/hr IV .BOLUS ONE Stop: 02/03/20 09:29 Last Admin: 02/03/20 10:14 Dose: 500 mls/hr Documented by: Sodium Chloride (Normal Saline) 100 mls @ 75 mls/hr IV ASDIRECTED MILAGROS Stop: 02/03/20 18:00 Last Admin: 02/03/20 09:26 Dose: 75 mls/hr Documented by: Iopamidol (Isovue-370 (76%)) 100 ml IVPUSH ONETIME ONE Stop: 02/03/20 08:50 Last Admin: 02/03/20 09:26 Dose: 100 ml Documented by: Metoprolol Succinate (Toprol Xl) 100 mg PO DAILY [facility] Last Admin: 02/04/20 13:35 Dose: Not Given Documented by: Potassium Chloride (Klor-Con M20) 20 meq PO ONETIME ONE Stop: 02/02/20 17:30 Last Admin: 02/02/20 18:20 Dose: 20 meq Documented by: Rosuvastatin Calcium (Crestor) 10 mg PO DAILY [facility] Last Admin: 02/05/20 08:27 Dose: 10 mg Documented by: Sodium Chloride (Saline Flush) 10 ml FLUSH ONETIME PRN PRN Reason: IV FLUSH Stop: 02/03/20 18:00 Last Admin: 02/03/20 09:26 Dose: 10 ml Documented by: - Exam Quality Assessment: Denies: Supplemental Oxygen General: Reports: Alert, Oriented, Cooperative HEENT: Reports: Pupils Equal, Pupils Reactive, EOMI, Mucous Membr. Moist/[place] Neck: Reports: Supple Lungs: Reports: Normal Respiratory Effort, Decreased Breath Sounds Cardiovascular: Reports: Regular Rate, Regular Rhythm GI/Abdominal Exam: Normal Bowel Sounds, Soft, Non-Tender, No Organomegaly, No Distention, No Abnormal Bruit (Female) Exam: Deferred Rectal (Female) Exam: Deferred Back Exam: Reports: Normal Inspection, Decreased Range of Motion Extremities: Normal Inspection, Normal Range of Motion, Non-Tender, No Pedal Edema, Normal Capillary Refill Skin: Reports: Warm, Dry, Intact Neurological: Reports: No New Focal Deficit, Normal Gait Psy/Mental Status: Reports: Alert, Normal Affect, Normal Mood
[2020-02-06] MEDS: Pantoprazole 40 MG Tab.CR PO SCH (07:08)
[2020-02-06] MEDS: Furosemide 40 MG Tab PO SCH (08:12)
[2020-02-06] MEDS: Metoprolol Succinate 50 MG Tab.ER PO SCH (08:12)
[2020-02-06] MEDS: Citalopram 10 MG Tab PO SCH (08:12)
[2020-02-06] MEDS: Potassium Chloride 10 MEQ Tab.ER PO SCH (08:12)
[2020-02-06] MEDS: Doxazosin 2 MG Tab PO SCH (08:13)
[2020-02-06] MEDS: Aspirin 81 MG Tab.EC PO SCH (08:13)
[2020-02-06 08:15] VITALS: BP 145/60
== END 2020-02-06 14:45 | disposition home or self-care (01) | DRG 316 ==
LOC: JD.ED 11:57 → JD.MS 14:43
PROVIDERS: ADMIT Family Medicine; ATTEND Family Medicine
DX: R09.02 Hypoxemia (principal); R79.89 Other specified abnormal findings of blood chemistry; I95.9 Hypotension, unspecified; R00.1 Bradycardia, unspecified; H54.7 Unspecified visual loss; E87.6 Hypokalemia; D64.9 Anemia, unspecified; E78.5 Hyperlipidemia, unspecified; I65.22 Occlusion and stenosis of left carotid artery; K52.9 Noninfective gastroenteritis and colitis, unspecified; K57.90 Diverticulosis of intestine, part unspecified, without perforation or abscess without bleeding; R32 Unspecified urinary incontinence; M51.26 Other intervertebral disc displacement, lumbar region; L90.0 Lichen sclerosus et atrophicus; F41.9 Anxiety disorder, unspecified; E66.9 Obesity, unspecified; Z79.82 Long term (current) use of aspirin; Z79.899 Other long term (current) drug therapy; Z87.891 Personal history of nicotine dependence; I73.9 Peripheral vascular disease, unspecified; I12.9 Hypertensive chronic kidney disease with stage 1 through stage 4 chronic kidney disease, or unspecified chronic kidney disease; N18.9 Chronic kidney disease, unspecified; E83.42 Hypomagnesemia; E78.00 Pure hypercholesterolemia, unspecified; Z98.49 Cataract extraction status, unspecified eye; Z96.659 Presence of unspecified artificial knee joint; R25.1 Tremor, unspecified; Z68.31 Body mass index [BMI] 31.0-31.9, adult; Z20.828 Contact with and (suspected) exposure to other viral communicable diseases
CPT/HCPCS: 0240U; 36415; 36600; 71045; 71275; 80048; 80053; 81001; 82728; 82803; 82962; 83605; 83615; 83735; 83880; 84100; 84443; 84484; 85007; 85025; 85027; 85379; 85610; 85730; 86140; 93005; 93970; 94640; 94761; 96365; 97110; 97162; 99285; 93010; 99222; 99232; 99238; A9270-GY; J1644; J2405; J3475; J7030; J7620-GY; Q9967

== ENCOUNTER 2020-06-15 10:31 | Emergency (ER) | payer MEDICARE, BC, MEDICAID ==
[2020-06-15 10:45] VITALS: BP 166/68; PULSE 62
--- NOTE | 2020-06-15 11:54 | CR ---
Chest: Portable view of the chest. Comparison: Prior chest x-ray of 02/02/20. Heart size and mediastinum are within normal limits for portable technique. Lungs are clear with no acute parenchymal change. Surgical clips are seen within the left neck. No acute osseous abnormality is appreciated. Impression: 1. Nothing acute is appreciated on portable chest x-ray. Diagnostic code #2
--- NOTE | 2020-06-15 12:42 | EDM.PDOC ---
ED HPI GENERAL MEDICAL PROBLEM - General Chief Complaint: Cardiovascular Problem Stated Complaint: LOW BP/DIZZY/SENT BY GONZALEZ Time Seen by Provider: 06/15/20 11:09 Source of Information: Reports: Patient History Limitations: Reports: No Limitations - History of Present Illness INITIAL COMMENTS - FREE TEXT/NARRATIVE: 84-year-old female presents the emergency department today with complaints of intermittent dizziness over the past 2 weeks. Patient states that over the course the past 2 weeks she develops intermittent dizziness throughout the day. She states that there is no correlation to anything that she is doing that would cause her dizziness. She can be sitting in the recliner watching TV when she starts to get dizzy. And then it resolves on its own. She does not state that she notices more when she rises from sitting to standing. She denies any chest pain, shortness of breath, palpitations, or diaphoresis when the dizziness occurs. She denies any fever or chills. She states it does cause her to feel slightly nauseated however she has not vomited. She also states she has not had any syncopal episodes due to the dizziness. She denies ever falling and hitting her head. She denies being on any blood thinners. She states she does have black-colored stools however she does take an iron supplement. She has not had any gross red blood in her stool. She denies any urinary symptoms. She denies any stroke type of symptoms. She does however state that she does have a history of TIA. - Related Data Allergies Allergy/AdvReac Type Severity Reaction Status Date / Time No Known Allergies Allergy Verified 06/15/20 10:45 Home Meds: Home Meds Aspirin [Young Aspirin EC] 81 mg PO DAILY 04/03/16 [History] Cilostazol [Pletal] 100 mg PO BID 04/03/16 [History] Citalopram Hydrobromide [Celexa] 10 mg PO DAILY 04/03/16 [History] Metoprolol Succinate [Toprol XL] 100 mg PO DAILY 04/03/16 [History] atorvaSTATin [Lipitor] 40 mg PO DAILY 04/03/16 [History] Acetaminophen [Tylenol Extra Strength] 650 mg PO Q8HR PRN 04/24/17 [History] Doxazosin Mesylate [Cardura] 2 mg PO DAILY 06/26/19 [History] Furosemide [Lasix] 40 mg PO DAILY 06/26/19 [History] Omeprazole 20 mg PO DAILY 06/26/19 [History] Potassium Chloride [Klor-Con M10] 10 meq PO DAILY 06/26/19 [History] rOPINIRole [Requip] 0.5 mg PO BEDTIME 06/26/19 [History] Iron Polysaccharides Complex [Ferrex 150] 1 tab PO DAILY 02/02/20 [History] lisinopriL [Prinivil] 5 mg PO DAILY #0 02/06/20 [Rx] Metoprolol Succinate [Toprol XL] 25 mg PO DAILY #20 tab.er 06/15/20 [Rx] Past Medical History HEENT History: Reports: Cataract, Impaired Vision, Other (See Below) Other HEENT History: wears glasses, dentures Cardiovascular History: Reports: High Cholesterol, Hypertension, Other (See Below) Other Cardiovascular History: left carotid artery bruit, and a left carotid endardectomy 2-3 months ago. Respiratory History: Reports: SOB Gastrointestinal History: Reports: Chronic Diarrhea, Diverticulosis, Other (See Below) Other Gastrointestinal History: LLQ pain, colon polyps removed approx. 1 months ago, diarrhea Genitourinary History: Reports: Urinary Incontinence CERTIFIED CODER History: Reports: Other (See Below) Other CERTIFIED CODER History: labia minora aggulination, cystocele, rectocele Musculoskeletal History: Reports: Other (See Below) Other Musculoskeletal History: closed compression fracture, lumbar disc herniation Psychiatric History: Reports: Anxiety Endocrine/Metabolic History: Reports: Obesity/BMI 30+ Hematologic History: Reports: Iron Deficiency Dermatologic History: Reports: Other (See Below) Other Dermatologic History: lichen sclerosus - Infectious Disease History Infectious Disease History: Reports: Chicken Pox, Measles, Mumps, Pertussis (Whooping Cough) - Past Surgical History HEENT Surgical History: Reports: Cataract Surgery Cardiovascular Surgical History: Reports: Carotid Endarterectomy Respiratory Surgical History: Reports: None GI Surgical History: Reports: Colonoscopy, Other (See Below) Other GI Surgeries/Procedures: AAA repair, sigmoidectomy Female Surgical History: Reports: None Endocrine Surgical History: Reports: None Musculoskeletal Surgical History: Reports: Knee Replacement, Other (See Below) Other Musculoskeletal Surgeries/Procedures:: kyphoplasty Dermatological Surgical History: Reports: None Social & Family History - Family History Family Medical History: No Pertinent Family History - Tobacco Use Tobacco Use Status *Q: Former Tobacco User Used Tobacco, but Quit: Yes Month/Year Tobacco Last Used: 2000 - Caffeine Use Caffeine Use: Reports: Coffee - Recreational Drug Use Recreational Drug Use: No ED ROS GENERAL - Review of Systems Review Of Systems: Comprehensive ROS is negative, except as noted in HPI. ED EXAM, GENERAL - Physical Exam Exam: See Below Exam Limited By: No Limitations General Appearance: Alert, WD/WN, No Apparent Distress Eye Exam: Bilateral Eye: PERRL Ears: Normal External Exam, Hearing Grossly Normal Nose: Normal Inspection Throat/Mouth: Normal Inspection, Normal Lips, Normal Voice, No Airway Compromise Head: Atraumatic, Normocephalic Neck: Normal Inspection, Supple Respiratory/Chest: No Respiratory Distress, Lungs Clear, Normal Breath Sounds, No Accessory Muscle Use, Chest Non-Tender Cardiovascular: Normal Peripheral Pulses, Regular Rate, Rhythm, No Edema, No Murmur Peripheral Pulses: 2+: Radial (L), Radial (R), Dorsalis Pedis (L), Dorsalis Pedis (R) GI/Abdominal: Normal Bowel Sounds, Soft, Non-Tender, No Distention (Female) Exam: Deferred Rectal (Female) Exam: Deferred Back Exam: Normal Inspection, Full Range of Motion Extremities: Normal Inspection, Normal Range of Motion, Non-Tender, No Pedal Edema, Normal Capillary Refill Neurological: Alert, Oriented, Normal Cognition Psychiatric: Normal Affect, Normal Mood Skin Exam: Warm, Dry, Intact, Normal Color, No Rash Lymphatic: No Adenopathy #1 Interpretation EKG Date: 06/15/20 Time: 11:20 Rhythm: NSR Rate (Beats/Min): 57 [place]: Normal P-Wave: Present QRS: Normal ST-T: Normal QT: Normal EKG Interpretation Comments: Per Dr. Dangelo interpretation: Sinus rhythm with a first-degree AV block at 57; normal axis and QT; no acute STT changes Course - Vital Signs Text/Narrative:: 84-year-old female with complaints of intermittent dizziness over the course the past 2 weeks. She states that this occurs several times throughout the day. There is no correlation to her daily activities and when the symptoms occur. She states they occur at rest and while ambulating or doing house chores. They do cause her to have some nausea associated with it however she denies any other symptoms. She states she does take a water pill and she drinks plenty of water. She has not noted any increased swelling in her bilateral lower extremities, as a matter fact she states it looks the best that they ever have. She denies any syncopal episodes, any chest pain, shortness of breath, palpitations or diaphoresis. Denies any urinary symptoms, vomiting or diarrhea. She does have black stools however she does take an iron supplement daily due to chronic anemia. I have ordered labs, EKG, chest x-ray, urinalysis, and orthostatic vital signs. Full neuro exam is unremarkable. Last Recorded V/S: Last Vital Signs Temp 97.8 F 06/15/20 10:41 Pulse 62 06/15/20 10:41 Resp 13 06/15/20 10:41 BP 166/68 H 06/15/20 10:41 Pulse Ox 97 06/15/20 10:41 - Orders/Labs/Meds Orders: Active Orders 24 hr Category Date Time Status EKG Documentation Completion [RC] STAT Care 06/15/20 11:12 Active Orthostatic Vital Signs [RC] ASDIRECTED Care 06/15/20 12:19 Active UA RFX STUART AND CULT IF INDIC [URIN] Stat Lab 06/15/20 11:12 Ordered Labs: Laboratory Tests 06/15/20 06/15/20 Range/Units 10:45 10:45 WBC 5.21 (3.98-10.04) K/mm3 RBC 3.40 L (3.98-5.22) M/mm3 Hgb 10.9 L D (11.2-15.7) gm/dl Hct 34.1 (34.1-44.9) % MCV 100.3 H (79.4-94.8) fl MCH 32.1 (25.6-32.2) pg MCHC 32.0 L (32.2-35.5) g/dl RDW Std Deviation 52.2 H (36.4-46.3) fL Plt Count 233 (182-369) K/mm3 MPV 9.5 (9.4-12.3) fl Neut % (Auto) 62.5 (34.0-71.1) % Lymph % (Auto) 23.4 (19.3-51.7) % [place] % (Auto) 12.3 (4.7-12.5) % Eos % (Auto) 1.2 (0.7-5.8) Baso % (Auto) 0.4 (0.1-1.2) % Neut # (Auto) 3.26 (1.56-6.13) K/mm3 Lymph # (Auto) 1.22 (1.18-3.74) K/mm3 [place] # (Auto) 0.64 H (0.24-0.36) K/mm3 Eos # (Auto) 0.06 (0.04-0.36) K/mm3 Baso # (Auto) 0.02 (0.01-0.08) K/mm3 Sodium 138 (136-145) mEq/L Potassium 4.1 (3.5-5.1) mEq/L Chloride 100 (98-107) mEq/L Carbon Dioxide 30 (21-32) mEq/L Anion Gap 12.1 (5-15) BUN 33 H (7-18) mg/dL Creatinine 1.8 H (0.55-1.02) mg/dL Est Cr Clr Drug Dosing 19.24 mL/min Estimated GFR (MDRD) 27 (>60) mL/min BUN/Creatinine Ratio 18.3 H (14-18) Glucose 106 (83-115) mg/dL Calcium 9.1 (8.5-10.1) mg/dL Magnesium 2.0 (1.8-2.4) mg/dl Total Bilirubin 0.7 (0.2-1.0) mg/dL AST 17 (15-37) U/L ALT 17 (14-59) U/L Alkaline Phosphatase 52 (46-116) U/L Troponin I < 0.017 (0.00-0.056) ng/mL C-Reactive Protein <0.2 (<1.0) mg/dL Total Protein 6.8 (6.4-8.2) g/dl Albumin 3.2 L (3.4-5.0) g/dl Globulin 3.6 gm/dL Albumin/Globulin Ratio 0.9 L (1-2) - Radiology Interpretation Free Text/Narrative:: Radiologist impression portable view of the chest: 1. Nothing acute is appreciated on portable chest x-ray. - Re-Assessments/Exams Free Text/Narrative Re-Assessment/Exam: 06/15/20 13:17 Hematology reveals a WBC of 5.21, hemoglobin 10.9, hematocrit 34.1, platelet count 233, chemistry reveals a sodium of 138, potassium 4.1, anion gap 12.1, BUN 33, creatinine 1.8, glucose 106, magnesium 2.0, troponin less than 0.017, C- reactive protein less than 0.2 Urinalysis shows 1+ leuk esterase. Urine culture is pending. Staff has completed orthostatic vital signs. The patient is not orthostatic. I spoken to the patient's primary care physician and asked if it would be okay if I decreased her metoprolol dose from 50 mg daily to [address] Brandt felt that this was a good plan. The patient will then follow-up with her primary care provider in the clinic in a week to 10 days. Patient will be instructed to keep a log of her blood pressures as well as a log of any symptoms of dizziness that she encounters throughout the day. I discussed this with the patient and she is agreeable to this plan. Departure - Departure Time of Disposition: 13:19 Disposition: Home, Self-Care 01 Condition: Good Clinical Impression: Dizziness Hypotension Qualifiers: Hypotension type: unspecified hypotension type Qualified Code(s): I95.9 - Hypotension, unspecified Prescriptions: Metoprolol Succinate [Toprol XL] 25 mg PO DAILY #20 tab.er Instructions: Hypotension, [id number], Dizziness, [id number] Referrals: Rowena Huston MD [Primary Care Provider] - Additional Instructions: You were seen in the emergency department today with complaints of low blood pressure and dizziness for the past couple of weeks. Labs, EKG, and chest x-ray were completed and these were all essentially unremarkable. Your urine sample has been sent for culture. If this grows out any bacteria we will call you with the results. I spoke with Dr. Brandt, and she agrees that we will decrease your metoprolol from 50 mg to 25 mg daily. I have sent a new prescription for this medication to your pharmacy and you can begin taking that tomorrow. You will need to follow-up with , in a week to 10 days. Continue to keep a log of your blood pressures. Also, keep a log of your symptoms as they occur throughout the day and what you were doing while they occur. Bring both of these logs to your follow-up appointment with . Should your condition worsen or change, do not hesitate returning to the emergency department. Sepsis Event Note (ED) - Evaluation Sepsis Screening Result: No Definite Risk - Focused Exam Vital Signs: Vital Signs Temp Pulse Resp BP Pulse Ox 06/15/20 10:41 97.8 F 62 13 166/68 H 97 - My Orders Last 24 Hours: My Active Orders 06/15/20 11:12 EKG Documentation Completion [RC] STAT UA RFX STUART AND CULT IF INDIC [URIN] Stat 06/15/20 12:19 Orthostatic Vital Signs [RC] ASDIRECTED - Assessment/Plan Last 24 Hours: My Active Orders 06/15/20 11:12 EKG Documentation Completion [RC] STAT UA RFX STUART AND CULT IF INDIC [URIN] Stat 06/15/20 12:19 Orthostatic Vital Signs [RC] ASDIRECTED
== END 2020-06-15 13:43 | disposition home or self-care (01) ==
LOC: JD.ED 10:31
DX: I95.9 Hypotension, unspecified (principal); R42 Dizziness and giddiness; I10 Essential (primary) hypertension; E78.00 Pure hypercholesterolemia, unspecified; E66.9 Obesity, unspecified; Z68.30 Body mass index [BMI] 30.0-30.9, adult; Z87.891 Personal history of nicotine dependence; Z79.82 Long term (current) use of aspirin; Z79.899 Other long term (current) drug therapy
CPT/HCPCS: 36415; 71045; 71045-26; 80053; 81001; 83735; 84484; 85025; 86140; 87086; 93005; 93010; 99284; 99284-25

== ENCOUNTER 2020-09-21 07:26 | Emergency (ER) | payer MEDICARE, BC, MEDICAID ==
--- NOTE | 2020-09-21 07:36 | EDM.PDOC ---
ED HPI GENERAL MEDICAL PROBLEM - General Chief Complaint: Cardiovascular Problem Stated Complaint: SENT BY STRESS TEST Time Seen by Provider: 09/21/20 07:27 Source of Information: Reports: Patient History Limitations: Reports: No Limitations - History of Present Illness INITIAL COMMENTS - FREE TEXT/NARRATIVE: 85-year-old female presents to the ED for evaluation of dizziness lig htheadedness and nausea that occurred after receiving Lexiscan nuclear medicine contrast for stress test this morning. She was not performing any component of walking on the treadmill. Developed hypotension after the Lexiscan and was quite dizzy and feeling unwell therefore brought to the emergency department. No vomiting but she is mild to moderately nauseated. BP initially is 102/59. Nausea was abating shortly after arrival in the ED. Therefore antinauseants will be withheld since they may interact with her antidepressant medication. Patient has an IV of normal saline of which she has received approximately 150 mils. Onset: Today, Sudden Onset Date: 09/21/20 Onset Time: 07:15 Duration: Minutes: Location: Reports: Generalized (Generalized lightheadedness with associate with nausea and weakness. No vomiting has occurred) Quality: Reports: Other (Generalized weakness) Severity: Moderate (and nausea.) Improves with: Reports: Rest (Getting better with time and since arrival in the ED.) Worsens with: Reports: None Context: Reports: Other (Developed). Denies: Activity, Exercise, Lifting, Sick Contact, Trauma Associated Symptoms: Reports: Loss of Appetite, Malaise, Nausea/Vomiting, Weakness, Other (Generalized weakness lightheaded and dizzy.). 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 below) (None.) - Related Data Allergies Allergy/AdvReac Type Severity Reaction Status Date / Time No Known Allergies Allergy Verified 09/21/20 07:39 Home Meds: Home Meds Aspirin [[place] Aspirin EC] 81 mg PO DAILY 04/03/16 [History] Cilostazol [Pletal] 100 mg PO BID 04/03/16 [History] Citalopram Hydrobromide [Celexa] 10 mg PO DAILY 04/03/16 [History] Metoprolol Succinate [Toprol XL] 25 mg PO DAILY 04/03/16 [History] atorvaSTATin [Lipitor] 40 mg PO DAILY 04/03/16 [History] Acetaminophen [Tylenol Extra Strength] 650 mg PO Q8HR PRN 04/24/17 [History] Doxazosin Mesylate [Cardura] 2 mg PO DAILY 06/26/19 [History] Furosemide [Lasix] 40 mg PO DAILY 06/26/19 [History] Omeprazole 20 mg PO DAILY 06/26/19 [History] Potassium Chloride [Klor-Con M10] 10 meq PO DAILY 06/26/19 [History] rOPINIRole [Requip] 0.5 mg PO BEDTIME 06/26/19 [History] Iron Polysaccharides Complex [Ferrex 150] 1 tab PO DAILY 02/02/20 [History] lisinopriL [Prinivil] 5 mg PO DAILY #0 02/06/20 [Rx] Metoprolol Succinate [Toprol XL] 25 mg PO DAILY #20 tab.er 06/15/20 [Rx] Past Medical History HEENT History: Reports: Cataract, Impaired Vision, Other (See Below) Other HEENT History: wears glasses, dentures Cardiovascular History: Reports: Heart Failure, High Cholesterol, Hypertension, PVD, SOB on Exertion, Other (See Below) Other Cardiovascular History: left carotid artery bruit, and a left carotid endardectomy 2-3 months ago. Respiratory History: Reports: SOB Gastrointestinal History: Reports: Chronic Diarrhea, Diverticulosis, Other (See Below) Other Gastrointestinal History: LLQ pain, colon polyps removed approx. 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 APPRENTICE History: labia minora aggulination, cystocele, rectocele Musculoskeletal History: Reports: Other (See Below) Other Musculoskeletal History: closed compression fracture, lumbar disc herniation Neurological History: Reports: Other (See Below) (Restless leg syndrome) Psychiatric History: Reports: Anxiety Endocrine/Metabolic History: Reports: Obesity/BMI 30+ Hematologic History: Reports: Iron Deficiency Dermatologic History: Reports: Other (See Below) Other Dermatologic History: lichen sclerosus - Infectious Disease History Infectious Disease History: Reports: Chicken Pox, Measles, Mumps, Pertussis (Whooping Cough) - Past Surgical History HEENT Surgical History: Reports: Cataract Surgery Cardiovascular Surgical History: Reports: Carotid Endarterectomy Respiratory Surgical History: Reports: None GI Surgical History: Reports: Colonoscopy, Other (See Below) Other GI Surgeries/Procedures: AAA repair, sigmoidectomy Female Surgical History: Reports: None Endocrine Surgical History: Reports: None Musculoskeletal Surgical History: Reports: Knee Replacement, Other (See Below) Other Musculoskeletal Surgeries/Procedures:: kyphoplasty Dermatological Surgical History: Reports: None Social & Family History - Family History Family Medical History: No Pertinent Family History - Caffeine Use Caffeine Use: Reports: Coffee - Living Situation & Occupation Living situation: Reports: , Alone Occupation: Retired ED ROS GENERAL - Review of Systems Review Of Systems: See Below Constitutional: Reports: Malaise, Weakness, Fatigue, Decreased Appetite. Denies: Fever, Chills, Weight Loss HEENT: Reports: Glasses Respiratory: Reports: Shortness of Breath. Denies: Wheezing, Pleuritic Chest Pain (On exertion.), Cough, Sputum, Hemoptysis Cardiovascular: Reports: Chest Pain (Angina equivalent with dyspnea and mild pressure central chest on exertion at times.), Blood Pressure Problem, Dyspnea on Exertion, Lightheadedness. Denies: Claudication, Edema, Orthopnea Endocrine: Reports: Fatigue GI/Abdominal: Reports: Constipation (Occasional problems with constipation) : Reports: Frequency, Incontinence (Rare occurrence of urge and stress incontinence) Musculoskeletal: Reports: Neck Pain, Shoulder Pain, Back Pain, Joint Pain (Knees and hips at times) Skin: Reports: No Symptoms Neurological: Reports: Dizziness, Difficulty Walking, Weakness. Denies: Confusion, Headache, Numbness, Syncope, Tingling, Trouble Speaking, Gait Disturbance Psychiatric: Reports: Depression Hematologic/Lymphatic: Reports: No Symptoms Immunologic: Reports: No Symptoms ED EXAM, GENERAL - Physical Exam Exam: See Below Exam Limited By: No Limitations General Appearance: Alert, WD/WN, Mild Distress, Other (She appears ill. Temperature is 36.6 degrees. Heart rate 64 and sinus. Respiratory is 20. O2 sats are 93% room air BP 102/59.) Eye Exam: Bilateral Eye: Normal Inspection (No blepharal pallor or scleral icterus.), PERRL Throat/Mouth: Normal Inspection, Normal Lips, Normal Oropharynx, Other. No: Normal Teeth (Tongue is mildly dry and coated.) Head: Atraumatic, Normocephalic Neck: Normal Inspection, Supple, Non-Tender, Full Range of Motion, Carotid Bruit (Right carotid bruit), Other (Evidence of left carotid endarterectomy.). No: Lymphadenopathy (L), Lymphadenopathy (R) Respiratory/Chest: No Accessory Muscle Use, Respiratory Distress (Mild tachypnea on exam), Decreased Breath Sounds (Mildly decreased breath sounds lower to 15% of posterior lung aldrich.), Rales (Active rales both lower lung bases.) Cardiovascular: Regular Rate, Rhythm, No Gallop, No Murmur, No Rub. No: Normal Peripheral Pulses Peripheral Pulses: 0: Posterior Tibial (L) (Due to significant edema both lower extremities.), 1+: Posterior Tibial (R), Dorsalis Pedis (L), Dorsalis Pedis (R), 2+: Carotid (L), Carotid (R) GI/Abdominal: Normal Bowel Sounds, Soft, Non-Tender, No Organomegaly, No Mass, Pelvis Stable Back Exam: Other (Mild kyphosis thoracic spine.). No: Full Range of Motion, CVA Tenderness (L), CVA Tenderness (R) Extremities: Pedal Edema (2+ pitting edema both lower extremities with venous stasis dermatitis bilaterally. Multiple bruises noted on the right lower extremity in the leg is quite tender to palpation.) Neurological: Alert, Oriented, CN II-XII Intact, Normal Cognition Psychiatric: Flat Affect, Other Skin Exam: Warm, Dry, Intact, Other (Grayish in color.). No: Normal Color #1 Interpretation EKG Date: 09/21/20 Time: 07:36 Rhythm: NSR Rate (Beats/Min): 64 Falls: Normal P-Wave: Present (First-degree AV block left atrial hypertrophy) QRS: Other (Incomplete right bundle branch block) ST-T: Other (Nonspecific T wave flattening aVL) QT: Normal EKG Interpretation Comments: Abnormal ECG with no signs of ischemia. Course - Vital Signs Last Recorded V/S: Last Vital Signs Temp 36.6 C 09/21/20 07:34 Pulse 64 09/21/20 07:34 Resp 20 09/21/20 07:34 BP 102/59 L 09/21/20 07:34 Pulse Ox 93 L 09/21/20 07:34 - Orders/Labs/Meds Labs: Laboratory Tests 08/04/21 08/04/21 08/04/21 Range/Units 07:50 07:50 07:50 WBC 5.95 (3.98-10.04) K/mm3 RBC 3.04 L (3.98-5.22) M/mm3 Hgb 9.8 L (11.2-15.7) gm/dl Hct 30.9 L (34.1-44.9) % MCV 101.6 H (79.4-94.8) fl MCH 32.2 (25.6-32.2) pg MCHC 31.7 L (32.2-35.5) g/dl RDW Std Deviation 48.2 H (36.4-46.3) fL Plt Count 238 (182-369) K/mm3 MPV 8.3 L (9.4-12.3) fl Neut % (Auto) 59.4 (34.0-71.1) % Lymph % (Auto) 22.5 (19.3-51.7) % Johnston % (Auto) 13.1 H (4.7-12.5) % Eos % (Auto) 3.2 (0.7-5.8) Baso % (Auto) 1.5 H (0.1-1.2) % Neut # (Auto) 3.53 (1.56-6.13) K/mm3 Lymph # (Auto) 1.34 (1.18-3.74) K/mm3 Johnston # (Auto) 0.78 H (0.24-0.36) K/mm3 Eos # (Auto) 0.19 (0.04-0.36) K/mm3 Baso # (Auto) 0.09 H (0.01-0.08) K/mm3 Sodium 137 (136-145) mEq/L Potassium 4.2 (3.5-5.1) mEq/L Chloride 102 (98-107) mEq/L Carbon Dioxide 31 (21-32) mEq/L Anion Gap 8.2 (5-15) BUN 26 H (7-18) mg/dL Creatinine 1.4 H (0.55-1.02) mg/dL Est Cr Clr Drug Dosing TNP Estimated GFR (MDRD) 36 (>60) mL/min BUN/Creatinine Ratio 18.6 H (14-18) Glucose 99 (70-99) mg/dL Calcium 9.1 (8.5-10.1) mg/dL Magnesium 1.8 (1.8-2.4) mg/dL Total Bilirubin 0.5 (0.2-1.0) mg/dL AST 14 L (15-37) U/L ALT 19 (14-59) U/L Alkaline Phosphatase 48 (46-116) U/L NT-Pro-B Natriuret Pep 500 H (0-450) pg/mL Total Protein 6.4 (6.4-8.2) g/dl Albumin 3.0 L (3.4-5.0) g/dl Globulin 3.4 gm/dL Albumin/Globulin Ratio 0.9 L (1-2) Meds: Medications Discontinued Medications Generic Name Dose Route Start Last Admin Trade Name Ragini PRN Reason Stop Dose Admin Sodium Chloride 1,000 mls @ 150 mls/hr 09/21/20 07:45 09/21/20 07:58 Normal Saline IV 150 mls/hr ASDIRECTED MILAGROS Administration Sodium Chloride 1,000 mls @ 50 mls/hr 09/21/20 09:00 Normal Saline IV ASDIRECTED MILAGROS - Radiology Interpretation Free Text/Narrative:: 85-year-old female attends the ED from the ECG stress suite. She was receiving a Lexiscan nuclear medicine contrast for stress test when she became hypotensive associated nausea without vomiting. Generalized weakness. She was then transferred to the ED for further evaluation. Blood pressure initially is 102/59. It slowly improved to 126/67. She had received 150 mils of normal saline in the ECG suite. She will have further normal saline given at 150 mils an hour. At present nausea is be abating and therefore she was not given any antinausea treatment. Routine labs to be collected as a hear rales in both lower lobes. History suggest that she has chronic CHF. She is tachypneic and mildly hypoxemic at 93% in the ED. - Re-Assessments/Exams Free Text/Narrative Re-Assessment/Exam: 09/21/20 08:06 heart rate is sinus bradycardia at 54. BP is currently 126/67 O2 sats are 99% on 2L/min. 09/21/20 08:15: Patient reports she is feeling much better. She will be taken over for Lexiscan initial study at this time. 09/21/20 08:51 White count is normal at 5.95. Differential shows 59% neutrophils. Hemoglobin is slightly low at 9.8 with hematocrit of 30.9. MCV is elevated at 101.6. Platelet count is 238,000. Sodium is 137 with potassium of 4.2. Chloride 102 with a bicarb of 31. Anion gap is 8.2. BUN is slightly elevated at 26 with a creatinine of 1.4 and GFR is only 36 i.e. stage IIIb renal insufficiency. Glucose 99 calcium 9.1. Magnesium 1.8. Liver function is normal. BNP is 500. Total protein 6.4 with an albumin fraction of 3.0. 09/21/20 08:52 Heart rate remains sinus bradycardia at 55/min. O2 sats remained 100% on 2 L/min by nasal cannula. BP is now 156/73. Her IV which is normal saline at 150 mils an hour will be turned down to 50 mils an hour at this time. 09/21/20 10:45 patient has managed to go to x-ray and have her initial Lexiscan done and is scheduled for the second part of her Lexiscan at 1100 hrs. She is 8 breakfast and is feeling markedly improved. She will be discharged from the emergency room at this time. She will be following up with her primary care physician in regards to results of Lexiscan performed today. Departure - Departure Time of Disposition: 10:29 Disposition: Home, Self-Care 01 Reason for Transfer *Q: Other Condition: Fair Clinical Impression: Adverse effects of medication Qualifiers: Encounter type: initial encounter Qualified Code(s): T50.905A - Adverse effect of unspecified drugs, medicaments and biological substances, initial encounter Referrals: Rowena Huston MD [Primary Care Provider] - Forms: ED Department Discharge Additional Instructions: Evaluation in the emergency room this morning in regards to adverse effects of medication--i.e. nuclear medicine contrast media as part of Lexiscan ECG stress test. Development of low blood pressure with significant nausea. Lab test done through the emergency room this morning were all within normal limits showing no evidence of heart related illness. You were treated with intravenous fluids and medication Zofran for nausea relief. This improved your symptoms and you improved enough to be able to eat some breakfast. You are discharged from the emergency room to have the last component of your Lexiscan stress test done. Continue all medications as per usual. Follow-up with personal physician as planned. Results of Lexiscan testing are usually available within 2 days of the test.
[2020-09-21 07:39] VITALS: BP 102/59; PULSE 64
[2020-09-21] MEDS ORDERED: Sodium Chloride 0.9% 1,000 ML IV SCH ×2 (07:45→09:00)
== END 2020-09-21 11:03 | disposition home or self-care (01) ==
LOC: JD.ED 07:26
DX: R42 Dizziness and giddiness (principal); T50.8X5A Adverse effect of diagnostic agents, initial encounter; E66.9 Obesity, unspecified; E78.00 Pure hypercholesterolemia, unspecified; I11.0 Hypertensive heart disease with heart failure; I50.9 Heart failure, unspecified; Z79.82 Long term (current) use of aspirin; Z79.899 Other long term (current) drug therapy; Z68.30 Body mass index [BMI] 30.0-30.9, adult
CPT/HCPCS: 36415; 73700; 78452; 80053; 83735; 83880; 85025; 87641; 93005; 93017; 99284; A9500; J2785; J7030; 93010

== ENCOUNTER → 2020-10-31 | Day surgery (SDC) | payer MEDICARE, BC, MEDICAID ==
[~2020-10-31] MED LIST changes: +Acetaminophen/HYDROcodone 325-5 MG Tab PO PRN; +Albuterol 0.083% 2.5 MG/3 ML Neb Soln NEB PRN; +EPINEPHrine 1 MG/ML SDV ONE; +HYDROmorphone 0.5 MG/0.5 ML Syringe IVPUSH PRN; +Ketamine 500 mg/10 ML MDV ONE; +Lactated Ringers 1,000 ML ONE; +Midazolam 1 MG/ML 2 ML SDV ONE; +Ondansetron 4 MG/2 ML SDV ONE; +Ropivacaine 0.5% 5 MG/ML 30 ML SDV ONE; +ceFAZolin 1 GM Vial ONE; +diphenhydrAMINE 50 MG/ML SDV IVPUSH PRN; +ePHEDrine 50 MG/ML SDV IVPUSH PRN; +ePHEDrine 50 MG/ML SDV ONE; +fentaNYL 100 MCG/2 ML SDV IVPUSH PRN
--- NOTE | 2020-10-31 06:03 | PCM.PREANE ---
Preanesthetic Assessment - Procedure Proposed Procedure: Left Total Knee Arthroplasty with left Greater Trochanter steroid injection - Anesthesia/Transfusion/Family Hx Anesthesia History: Prior Anesthesia Without Reaction Family History of Anesthesia Reaction: No Transfusion History: Prior Transfusion Without Reaction Intubation History: Unknown - Review of Systems General: No Symptoms Pulmonary: No Symptoms (Former smoker: quit in 2010) Cardiovascular: No Symptoms (HTN/diastolic dysfunction, elevated cholester ol/CAD/carotid artery disease/history of aortic aneurysm), Dyspnea on Exertion, Edema (on lasix: 1+ edema noted bilaterally) Gastrointestinal: No Symptoms (GERD-controlled/hiatal hernia), Constipation, Diarrhea Neurological: No Symptoms ("possible small stroke in 2019"/lower back pain chronic rated 2-3 with movement.), Dizziness (1-2 months ago/ no longer present.), Tingling (bilaterally in feet chronic) Other: Reports: None (decreased kidney function noted.), Easy Bruising, Sinus Problem (rhinitis), Depression, Anxiety - Physical Assessment NPO Status Date: 10/30/20 NPO Status Time: 23:59 Vital Signs: HR: 68 Sat: 95% Temp: 97.2 B/P: 164/64 Resp: 20 Height: 1.57 m Weight: 74 kg ASA Class: 3 Mental Status: Alert & Oriented x3 Airway Class: Mallampati = 2 Dentition: Reports: Dentures (upper and lower ) Thyro-Mental Finger Breadths: 3 Mouth Opening Finger Breadths: 3 ROM/Head Extension: Full Lungs: Clear to Auscultation, Normal Respiratory Effort Cardiovascular: Regular Rate, Regular Rhythm, No Murmurs - Lab Values: All labs reviewed and noted and within acceptable ranges to proceed with scheduled procedure. - Imaging/EKG Impressions: CXR: negative EKG: SR rate=64, incomplete RBBB, First degree AV block, left atrial hypertrophy Stress Test: negative - Allergies Allergies/Adverse Reactions: Allergies Allergy/AdvReac Type Severity Reaction Status Date / Time latex Allergy Rash Verified 10/30/20 13:37 - Anesthesia Plan Pre-Op Medication Ordered: Beta Julee Beta Julee: Metoprolol Med Last Dose Date: 10/31/20 Med Last Dose Time: 05:00 - Acknowledgements Anesthesia Type Planned: Spinal (Left adductor canal block under US guidance for post operative pain control) Pt an Appropriate Candidate for the Planned Anesthesia: Yes Alternatives and Risks of Anesthesia Discussed w Pt/Guardian: Yes Pt/Guardian Understands and Agrees with Anesthesia Plan: Yes PreAnesthesia Questionnaire HEENT History: Reports: Cataract, Impaired Vision, Other (See Below) Other HEENT History: wears glasses, dentures Cardiovascular History: Reports: Heart Failure, High Cholesterol, Hypertension, PVD, SOB on Exertion, Other (See Below) Other Cardiovascular History: left carotid artery bruit, and a left carotid endardectomy 2-3 months ago. Respiratory History: Reports: SOB Gastrointestinal History: Reports: Chronic Diarrhea, Diverticulosis, Other (See Below) Other Gastrointestinal History: LLQ pain, colon polyps removed approx. 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) Other OB/BYN History: labia minora aggulination, cystocele, rectocele Musculoskeletal History: Reports: Other (See Below) Other Musculoskeletal History: closed compression fracture, lumbar disc herniation Neurological History: Reports: CVA, Other (See Below) Psychiatric History: Reports: Anxiety Endocrine/Metabolic History: Reports: Obesity/BMI 30+ Hematologic History: Reports: Anemia, Blood Transfusion(s), Iron Deficiency Immunologic History: Reports: None Oncologic (Cancer) History: Reports: None Dermatologic History: Reports: Other (See Below) Other Dermatologic History: lichen sclerosus - Infectious Disease History Infectious Disease History: Reports: None - Past Surgical History Head Surgeries/Procedures: Reports: None HEENT Surgical History: Reports: Cataract Surgery Cardiovascular Surgical History: Reports: Carotid Endarterectomy Respiratory Surgical History: Reports: None GI Surgical History: Reports: Colonoscopy, Other (See Below) Other GI Surgeries/Procedures: AAA repair, sigmoidectomy Female Surgical History: Reports: None Male Surgical History: Reports: None Endocrine Surgical History: Reports: None Neurological Surgical History: Reports: Other (See Below) Other Neurological Surgeries/Procedures: kyphoplasty Musculoskeletal Surgical History: Reports: Knee Replacement, Other (See Below) Other Musculoskeletal Surgeries/Procedures:: kyphoplasty Oncologic Surgical History: Reports: None Dermatological Surgical History: Reports: None - SUBSTANCE USE Tobacco Use Status *Q: Former Tobacco User Recreational Drug Use History: No - HOME MEDS Home Medications: Home Meds Aspirin [[place] Aspirin EC] 81 mg PO DAILY 04/03/16 [History] Citalopram Hydrobromide [Celexa] 10 mg PO DAILY 04/03/16 [History] Acetaminophen [Tylenol Extra Strength] 650 mg PO Q8HR PRN 04/24/17 [History] Furosemide [Lasix] 40 mg PO DAILY 06/26/19 [History] Omeprazole 20 mg PO DAILY 06/26/19 [History] Potassium Chloride [Klor-Con M10] 10 meq PO DAILY 06/26/19 [History] rOPINIRole [Requip] 0.5 mg PO BEDTIME 06/26/19 [History] lisinopriL [Prinivil] 5 mg PO DAILY #0 02/06/20 [Rx] Apixaban [Eliquis] 2.5 mg PO BID #60 tablet 10/28/20 [Rx] Hydrocodone/Acetaminophen [HYDROcodone-Acetaminophen 5-325 MG] 1 - 2 each PO Q6H PRN #30 tablet 10/28/20 [Rx] Cholecalciferol (Vitamin D3) [Vitamin D3] 5,000 unit PO DAILY 10/30/20 [History] Doxazosin Mesylate [Cardura] 1 mg PO DAILY 10/30/20 [History] Ferrous Sulfate [Iron] 325 mg PO BID 10/30/20 [History] Metoprolol Succinate 50 mg PO DAILY 10/30/20 [History] Rosuvastatin [Crestor] 20 mg PO BEDTIME 10/30/20 [History] - CURRENT (IN HOUSE) MEDS Current Meds: Current Medications Hydrocodone Bitart/Acetaminophen (Acetaminophen/Hydrocodone 325-5 Mg Tab) 1 - 2 tab PO ONETIME PRN PRN Reason: Pain Morphine Sulfate 8 mg/Epinephrine HCl 0.3 mg/Cefuroxime Sodium 750 mg/Sodium Chloride 7.9 ml 0 mg .XX ASDIRECTED PRN PRN Reason: Pain Stop: 10/31/20 18:00 Lactated Ringer's (Ringers, Lactated) 1,000 mls @ 125 mls/hr IV ASDIRECTED MILAGROS Stop: 10/31/20 23:00 Lidocaine/Sodium Bicarbonate (Lidocaine 1%/Sod Bicarbonate In Ns 8.4% 1 Ml Syringe) 0.25 ml IDERM ONETIME PRN PRN Reason: Prior to IV Start Stop: 10/31/20 18:00 Sodium Chloride (Sodium Chloride 0.9% 10 Ml Syringe) 10 ml FLUSH ASDIRECTED PRN PRN Reason: Keep Vein Open Stop: 10/31/20 18:00
[2020-10-31] MEDS: Morphine 8 MG, EPINEPHrine 0.3 MG, Cefuroxime 750 MG, Sodium Chloride 0.9% 7.9 ML PRN ×8 (07:51→08:16)
[2020-10-31] MEDS: Vancomycin 1 GM SDV ONE ×2 (07:52→08:25)
[2020-10-31] MEDS: Triamcinolone Acetonide 40 MG/ML 1 ML SDV ONE ×2 (07:52→08:43)
[2020-10-31] MEDS: Bupivacaine 0.25% 10 ML SDV ONE ×2 (07:53→08:43)
--- NOTE | 2020-10-31 08:56 | PCM.POSTAN ---
POST ANESTHESIA ASSESSMENT - MENTAL STATUS Mental Status: Alert - VITAL SIGNS Vital Signs: Last Vital Signs Temp 98 10/31/20 0849 Pulse 77 10/31/20 0849 Resp 15 10/31/20 0849 BP 101/64 10/31/20 0849 Pulse Ox 99% 10/31/20 0849 - RESPIRATORY Respiratory Status: Respiratory Rate WNL, Airway Patent, O2 Saturation Stable, Supplemental Oxygen - CARDIOVASCULAR CV Status: Pulse Rate WNL, Blood Pressure Stable - GASTROINTESTINAL GI Status: No Symptoms - POST OP HYDRATION Hydration Status: Adequate & Stable
--- NOTE | 2020-10-31 09:21 | PCM.PRNOTE ---
- Free Text/Narrative Note: Anesthesia Note: Left selective femoral nerve block at the adductor canal for post-procedure pain control under US guidance requested by Dr. Sevilla. Time Out: 899 Start: 899 End: 910 Chart reviewed. Consent signed. Questions answered. Appropriate monitors applied. Time out performed. Left mid-shaft femur identified with ultrasound, scanning medially of femur, the femoral artery in the adductor canal visualized, and the femoral nerve located laterally to the artery. The skin was prepped lateral to the ultrasound probe with chlorahexadine times two. The 21ga 4 insulated block needle was inserted under direct ultrasound guidance into the adductor canal. 20mL of 0.5% ropivacaine with 1:200,000 epinephrine was injected circumferentially around the nerve with intermittent negative aspiration noted. Patient tolerated the procedure well. Sterile technique noted along with sterile gloves, mask, and sterile probe cover. See picture on progress note and vital signs on nurses notes. Block completed in PACU. Desi Rosenberg CRNA
--- NOTE | 2020-10-31 09:48 | CR ---
Left knee: AP and crosstable lateral views of the left knee were obtained. Comparison: Prior left knee CT study of 09/21/20. Left knee prosthesis is seen. Patellar prosthesis is also noted. Soft tissue air is seen. Vascular calcification is noted. No additional acute osseous abnormality is seen. Impression: 1. Satisfactory postop radiographic appearance of recently placed left knee prostheses. Diagnostic code #2
--- NOTE | 2020-10-31 11:34 | PCM48HPAN ---
Post Anesthesia Note - EVALUATION WITHIN 48HRS OF ANESTHETIC Vital Signs in Normal Range: Yes Patient Participated in Evaluation: Yes Respiratory Function Stable: Yes Airway Patent: Yes Cardiovascular Function Stable: Yes Hydration Status Stable: Yes Pain Control Satisfactory: Yes Nausea and Vomiting Control Satisfactory: Yes Mental Status Recovered: Yes Vital Signs: Last Vital Signs Temp 36.8 C 10/31/20 09:45 Pulse 75 10/31/20 09:45 Resp 15 10/31/20 09:45 BP 131/60 10/31/20 09:45 Pulse Ox 97 10/31/20 09:45
[2020-10-31 17:46] VITALS: BP 124/57; PULSE 68
--- NOTE | 2020-11-10 07:20 | PCM.OPNOTE ---
- General Post-Op/Procedure Note Date of Surgery/Procedure: 10/31/20 Operative Procedure(s): left total knee arthroplasty with left hip greater trochanter injection Pre Op Diagnosis: left knee osteoarthrosis and left hip greater trochanter bursitis Post-Op Diagnosis: Same Anesthesia Technique: Local, MAC, Spinal Primary Surgeon: Akash Sevilla Anesthesia Provider: Trudy Rosenberg Planishing Hammer Operator: Nury Sanon Planishing Hammer Operator: Paula Robles in mLs: 5 Complications: None Condition: Good Free Text/Narrative:: / 9mm 32x10
--- NOTE | 2020-11-10 08:36 | OR ---
DATE OF OPERATION: 10/31/2020 SURGEON: Akash Sevilla MD OPERATION PERFORMED: Left total knee arthroplasty with left hip greater trochanter injection. PREOPERATIVE DIAGNOSIS: Left knee osteoarthritis and left hip greater trochanteric bursitis. POSTOPERATIVE DIAGNOSIS: Left knee osteoarthritis and left hip greater trochanteric bursitis. ANESTHESIA: Local MAC with spinal. ANESTHESIA PROVIDER: Trudy Rosenberg CRNA RANGER AIDE: Nury Sanon PA-C; and Paula Jenkins RN. ESTIMATED BLOOD LOSS: 5 mL. COMPLICATIONS: None. CONDITION: Stable. IMPLANTS: 1. Octavia size 4 cemented PS femur. 2. [place] size 4 cemented Isola tibial baseplate. 3. [place] size 4 9 mm PS X3 polyethylene. 4. Octavia size 32 x 10 mm cemented asymmetric patella. DESCRIPTION OF PROCEDURE: The patient was identified in the preop holding area. Proper site was marked and identified by the surgeon. The patient was taken back to the operating theater where after adequate anesthesia, the patient's left lower extremity had a nonsterile tourniquet applied and it was sterilely prepped and draped in the usual sterile fashion. OR time-out was performed. The patient received 2 g IV Ancef . Leg figueroa was then applied to the left lower extremity. At this time, the left lower extremity was exsanguinated. Tourniquet was insufflated to 250 mmHg . Standard anterior incision was made. Medial parapatellar arthrotomy was created. Deep fibers of the MCL were raised as well as anterior fat pad was resected. Attention was turned to the patella. Patella measured a 24 mm; it was resected to a 13 mm for a 32 x 10 mm patella. Drill holes were then drilled. Attention was then turned to the femur. Two 4.0 pins were placed intra-incisionally for the [place] [employer] robotic array and then 2 more were placed on the tibia 3 fingerbreadths below the tibial tubercle. The [place] [employer] robotic arrays were placed on both the femur and the tibia then at this time as well as checkpoints on the femur and tibia. Hip center rotation was then obtained. The medial and lateral malleoli were marked. At this time, 40 points were obtained off the femur and the tibia for the [employer] robotic plan. The patient's knee was brought to full extension. Varus and valgus stresses were applied and then into 90 degrees of flexion with a curved osteotome. Varus and valgus stresses were applied. At this time, [employer] robotic plan was done to 19 mm gaps in both flexion and extension. [employer] robotic arm was then brought in. A straight saw blade was then used for the tibial cut, the anterior femoral cut, the anterior chamfer cut, and the posterior femoral cut. All bony fragments were removed. Saw blade was then switched out and the distal femoral cut as well as the posterior chamfer cut was completed. At this time, medial and lateral menisci were resected as well as any posterior osteophytes. A size 4 mm trial tibia was then placed, size 4 mm trial femur was placed, and a size 4 9 mm PS X3 polyethylene trial liner was placed. The patient's knee was brought to full extension and flexion. Varus and valgus stresses were applied, was found to be stable with no instability. No signs of liftoff or loosening were noted. At this time, box cut was completed on the femur. The pins were removed from the femur and the tibia as well as the arrays and the checkpoints. Cement was mixed on the back table. All cut surfaces were irrigated with pulse lavage irrigation with Ancef and then completely dried. Once the cement was ready, the Octavia size 4 mm cemented Isola tibial base plate having been previously stamped and drilled, was then cemented in place on the tibia. The Octavia size 4 mm cemented femur was cemented into place. The patient had a [place] size 4 9 mm PS X3 polyethylene insert placed. The patient's knee was brought to full extension. Excess cement was removed. A Octavia size 32 x 10 mm cemented asymmetric patella was then cemented into place. 1 L of pulse lavage irrigation with Ancef was irrigated through the knee along with 400 mL of Irrisept irrigation. Periarticular injection was completed. Topical tranexamic acid and vancomycin powder were applied. A #2 barbed suture was used for closure of the medial parapatellar arthrotomy in flexion. 2-0 Vicryl and Stratafix were used for subcutaneous closure. Prineo was used for cutaneous closure. The patient had a sterile soft dressing applied. The tibial holes were closed with nylon, and this was also covered with a sterile soft dressing. After this under sterile technique 2ml 40mg Kenalog and 4ml 0.25% Marcaine were injected to the left hip greater trochanter. The patient had an VAISHALI wrap applied and was sent to PACU in stable condition. The patient tolerated the procedure well. MMSULMA /[id number] MTDD
== END | disposition home or self-care (01) ==
LOC: JD.SDS 06:01
PROVIDERS: ATTEND Orthopaedic Surgery
DX: M17.12 Unilateral primary osteoarthritis, left knee (principal); M70.62 Trochanteric bursitis, left hip; D63.1 Anemia in chronic kidney disease; N18.32 Chronic kidney disease, stage 3b; I12.9 Hypertensive chronic kidney disease with stage 1 through stage 4 chronic kidney disease, or unspecified chronic kidney disease; E78.00 Pure hypercholesterolemia, unspecified; K21.9 Gastro-esophageal reflux disease without esophagitis; I65.23 Occlusion and stenosis of bilateral carotid arteries; R60.0 Localized edema; Z79.899 Other long term (current) drug therapy; Z98.890 Other specified postprocedural states; Z87.891 Personal history of nicotine dependence; Z91.040 Latex allergy status; Z79.82 Long term (current) use of aspirin; G89.18 Other acute postprocedural pain
CPT/HCPCS: 20610; 27447; 73560; 97110; 97116; 97161; A9270; C1713; C1776; J0171; J0690; J0697; J2250; J2270; J2405; J2704; J2795; J3010; J3301; J3370; J3490; J7120; 01402; 64450; 76942; 99100; J2370

== ENCOUNTER 2021-03-12 11:46 | Emergency (ER) | payer MEDICARE, BC, MEDICAID ==
[2021-03-12 11:52] VITALS: BP 123/76; PULSE 115
[2021-03-12] MEDS ORDERED: Sodium Chloride 0.9% 10 ML Syringe FLUSH PRN (11:55)
[2021-03-12] MEDS ORDERED: Sodium Chloride 0.9% 1,000 ML IV ONE (12:06)
[2021-03-12] MEDS ORDERED: Acetaminophen 325 MG Tab PO ONE (12:39)
[2021-03-12 14:18] LABS: CORONAVIRUS COVID-19 NAA NEGATIVE (NEGATIVE)
[2021-03-12] MEDS ORDERED: cefTRIAXone 2 GM in Sodium Chloride 0.9% 100 ML IV ONE (16:02)
[2021-03-12] MEDS ORDERED: cefTRIAXone 2 GM AdvVial IV ONE (16:32)
== END 2021-03-12 17:42 | disposition home or self-care (01) ==
LOC: SUPCPDRO 11:46 → JD.ED 11:46
DX: E86.0 Dehydration (principal); R79.1 Abnormal coagulation profile; N30.01 Acute cystitis with hematuria; I11.0 Hypertensive heart disease with heart failure; I50.9 Heart failure, unspecified; E78.00 Pure hypercholesterolemia, unspecified; D50.9 Iron deficiency anemia, unspecified; E66.9 Obesity, unspecified; Z87.891 Personal history of nicotine dependence; Z91.040 Latex allergy status; Z79.82 Long term (current) use of aspirin; Z79.01 Long term (current) use of anticoagulants; Z79.899 Other long term (current) drug therapy; Z20.822 Contact with and (suspected) exposure to COVID-19
CPT/HCPCS: 0240U; 36415; 71045; 80053; 81001; 83605; 83735; 83880; 84484; 85025; 86140; 87040; 87086; 87088; 87186; 93005; 96365; 99285; A9270; J0696; J7030

== ENCOUNTER 2021-05-22 20:21 | Emergency (ER) | payer MEDICARE, BC, MEDICAID ==
[2021-05-22 20:43] VITALS: BP 159/64; PULSE 69
[2021-05-22] MEDS ORDERED: Acetaminophen 325 MG Tab PO ONE (22:37)
[2021-05-22] MEDS ORDERED: Nitrofurantoin Monohydrate/Macrocrystalline 100 MG Cap PO STA (23:48)
== END 2021-05-23 00:29 | disposition home or self-care (01) ==
LOC: JD.ED 20:21
DX: N30.01 Acute cystitis with hematuria (principal); I11.0 Hypertensive heart disease with heart failure; I50.9 Heart failure, unspecified; F41.9 Anxiety disorder, unspecified; F17.210 Nicotine dependence, cigarettes, uncomplicated; Z91.040 Latex allergy status
CPT/HCPCS: 36415; 70450; 71046; 80053; 81001; 83735; 84484; 85025; 87086; 87088; 87186; 93005; 99284; A9270; 93010; 99285

== ENCOUNTER 2022-01-10 18:26 | Emergency (ER) | payer MEDICARE, BC, MEDICAID ==
[2022-01-10 20:16] VITALS: BP 196/100; PULSE 71
[2022-01-10] MEDS ORDERED: Sodium Chloride 0.9% 10 ML Syringe FLUSH PRN (20:43)
[2022-01-10 21:26] LABS: ESTIMATED GFR 55 mL/min (>60)
[2022-01-10] MEDS ORDERED: Iopamidol 612 MG/ML 100 ML Bottle IVPUSH ONE (21:51)
== END 2022-01-11 00:40 | disposition home or self-care (01) ==
LOC: JD.ED 18:26
DX: R10.32 Left lower quadrant pain (principal); R19.7 Diarrhea, unspecified; I10 Essential (primary) hypertension; E66.9 Obesity, unspecified; Z68.27 Body mass index [BMI] 27.0-27.9, adult; Z91.040 Latex allergy status; Z79.899 Other long term (current) drug therapy; Z79.82 Long term (current) use of aspirin
CPT/HCPCS: 36415; 74177; 80053; 81003; 83735; 85025; 86140; 99284; J3490; Q9967

== ENCOUNTER 2023-04-13 12:24 | Inpatient (IN) | payer MEDICARE, BC, MEDICAID ==
[2023-04-13 12:56] LABS: BASOPHILS ABSOLUTE AUTO 0.1 K/mm3 (0.0-0.2); BASOPHILS PERCENT AUTO 0.5 % (0.0-1.0); HEMOGLOBIN 11.3 gm/dl (12.0-16.0); IMMATURE GRAN ABSOLUTE AUTO 0.05 K/mm3 (0.00-0.05); IMMATURE GRAN PERCENT AUTO 0.5 % (0.0-0.4); LYMPHOCYTES ABSOLUTE AUTO 0.9 K/mm3 (1.0-4.8); LYMPHOCYTES PERCENT AUTO 8.9 % (24.0-44.0); MEAN CORPUSCULAR HEMOGLOBIN 33.6 pg (28.0-32.0); MEAN CORPUSCULAR HGB CONC 32.3 g/dl (32.0-36.0); MEAN CORPUSCULAR VOLUME 104.2 fl (83.0-99.0); MEAN PLATELET VOLUME 8.8 fl (9.4-12.3); MONOCYTES ABSOLUTE AUTO 1.2 K/mm3 (0.0-0.8); MONOCYTES PERCENT AUTO 11.5 % (0.0-8.0); NEUTROPHILS ABSOLUTE AUTO 7.9 K/mm3 (1.8-7.7); NEUTROPHILS PERCENT AUTO 78.6 % (41.0-71.0); PLATELET COUNT,PLT 190 K/mm3 (150-400); RED BLOOD CELL COUNT 3.36 M/mm3 (4.10-5.30)
[2023-04-13 13:21] LABS: A/G RATIO 0.9 (1-2); ALBUMIN 3.1 g/dl (3.4-5.0); ANION GAP 11.2 (5-15); BILIRUBIN TOTAL 0.9 mg/dL (0.2-1.0); BUN/CREATININE RATIO 18.5 (14-18); C-REACTIVE PROTEIN 0.52 mg/dL (<0.30); CALCIUM 9.3 mg/dL (8.5-10.1); CREATININE 1.3 mg/dL (0.55-1.02); EST CRCL DRUG DOSING (CG) 25.22 mL/min; MAGNESIUM 1.7 mg/dL (1.8-2.4); POTASSIUM,K 4.2 mEq/L (3.5-5.1); PROTEIN TOTAL,TP 6.6 g/dl (6.4-8.2)
[2023-04-13] MEDS: Iopamidol 612 MG/ML 100 ML Bottle IVPUSH ONE (13:39)
[2023-04-13] MEDS: Sodium Chloride 0.9% 10 ML Syringe FLUSH PRN (14:03)
[2023-04-13] MEDS: Sodium Chloride 0.9% 1,000 ML IV SCH (14:03)
[2023-04-13 14:20] LABS: CORONAVIRUS COVID-19 NAA NEGATIVE (NEGATIVE); INFLUENZA A NAA NEGATIVE (NEGATIVE); RESPIRATORY SYNCYTIAL VIR NAA NEGATIVE (NEGATIVE)
[2023-04-13 14:34] LABS: APPEARANCE,URINE CLOUDY (Clear); BILIRUBIN,URINE NEGATIVE (Negative); COLOR,URINE YELLOW (Yellow); GLUCOSE,URINE NEGATIVE (Negative); KETONES,URINE NEGATIVE (Negative); LEUKOCYTE ESTERASE,URINE 2+ (Negative); NITRITE,URINE POSITIVE (Negative); OCCULT BLOOD,URINE 1+ (Negative); PROTEIN,URINE 1+ (Negative); UROBILINOGEN,URINE 0.2 (0.2-1.0)
[2023-04-13 14:42] LABS: BACTERIA,URINE MANY /hpf (FEW); EPITHELIAL CELLS,URINE 0-5 /hpf (0-5); MUCUS,URINE FEW /hpf (FEW); WBC,URINE 50-75 /hpf (0-5)
[2023-04-13] MEDS: HYDROmorphone 0.5 MG/0.5 ML Syringe IVPUSH ONE (15:21)
[2023-04-13] MEDS: cefTRIAXone 2 GM in Sodium Chloride 0.9% 100 ML IV ONE (15:54)
[2023-04-13] MEDS ORDERED: Ondansetron 4 MG/2 ML SDV IV PRN (17:56)
[2023-04-13] MEDS: Heparin Sodium 5,000 Units/ML Vial SUBCUT SCH (19:05)
[2023-04-13 19:43] LABS: FOLIC ACID 48.5 ng/mL (8.6-58.9)
[2023-04-13] MEDS: Acetaminophen/HYDROcodone 325-5 MG Tab PO PRN (20:27)
[2023-04-13] MEDS: rOPINIRole 0.25 MG Tab PO SCH (20:29)
[2023-04-13] MEDS: Ferrous Sulfate 324 MG Tab.EC PO ONE (20:29)
[2023-04-14 09:14] LABS: BASOPHILS PERCENT AUTO 0.2 % (0.0-1.0); EOSINOPHILS PERCENT AUTO 0.4 % (0.0-6.0); HEMATOCRIT 32.4 % (37.0-47.0); HEMOGLOBIN 10.2 gm/dl (12.0-16.0); IMMATURE GRAN ABSOLUTE AUTO 0.03 K/mm3 (0.00-0.05); IMMATURE GRAN PERCENT AUTO 0.3 % (0.0-0.4); LYMPHOCYTES PERCENT AUTO 10.9 % (24.0-44.0); MEAN CORPUSCULAR HEMOGLOBIN 33.3 pg (28.0-32.0); MEAN CORPUSCULAR HGB CONC 31.5 g/dl (32.0-36.0); MEAN CORPUSCULAR VOLUME 105.9 fl (83.0-99.0); MEAN PLATELET VOLUME 9.4 fl (9.4-12.3); MONOCYTES ABSOLUTE AUTO 0.8 K/mm3 (0.0-0.8); MONOCYTES PERCENT AUTO 8.2 % (0.0-8.0); NEUTROPHILS ABSOLUTE AUTO 7.6 K/mm3 (1.8-7.7); PLATELET COUNT,PLT 167 K/mm3 (150-400); RED BLOOD CELL COUNT 3.06 M/mm3 (4.10-5.30); WHITE BLOOD CELL COUNT,WBC 9.46 K/mm3 (3.9-11.3)
[2023-04-14 09:27] LABS: ANION GAP 12.1 (5-15); BUN/CREATININE RATIO 18.6 (14-18); CALCIUM 8.7 mg/dL (8.5-10.1); CREATININE 1.4 mg/dL (0.55-1.02); EST CRCL DRUG DOSING (CG) 23.42 mL/min; POTASSIUM,K 4.1 mEq/L (3.5-5.1)
[2023-04-14] MEDS: Aspirin 81 MG Tab.EC PO SCH (09:30)
[2023-04-14] MEDS ORDERED: Sodium Chloride 0.9% 1,000 ML IV SCH (09:30)
[2023-04-14] MEDS: Metoprolol Succinate 50 MG Tab.ER PO SCH (09:31)
[2023-04-14] MEDS: Potassium Chloride 10 MEQ Tab.ER PO SCH (09:31)
[2023-04-14] MEDS: cefTRIAXone 1 GM in Sodium Chloride 0.9% 100 ML IV SCH (15:36)
[2023-04-15 05:48] LABS: BASOPHILS PERCENT AUTO 0.4 % (0.0-1.0); EOSINOPHILS ABSOLUTE AUTO 0.1 K/mm3 (0.0-0.4); EOSINOPHILS PERCENT AUTO 1.5 % (0.0-6.0); HEMATOCRIT 29.3 % (37.0-47.0); HEMOGLOBIN 9.4 gm/dl (12.0-16.0); IMMATURE GRAN ABSOLUTE AUTO 0.03 K/mm3 (0.00-0.05); IMMATURE GRAN PERCENT AUTO 0.4 % (0.0-0.4); LYMPHOCYTES PERCENT AUTO 14.2 % (24.0-44.0); MEAN CORPUSCULAR HEMOGLOBIN 33.8 pg (28.0-32.0); MEAN CORPUSCULAR HGB CONC 32.1 g/dl (32.0-36.0); MEAN CORPUSCULAR VOLUME 105.4 fl (83.0-99.0); MEAN PLATELET VOLUME 9.5 fl (9.4-12.3); MONOCYTES ABSOLUTE AUTO 0.7 K/mm3 (0.0-0.8); MONOCYTES PERCENT AUTO 9.7 % (0.0-8.0); NEUTROPHILS ABSOLUTE AUTO 5.3 K/mm3 (1.8-7.7); NEUTROPHILS PERCENT AUTO 73.8 % (41.0-71.0); PLATELET COUNT,PLT 168 K/mm3 (150-400); RED BLOOD CELL COUNT 2.78 M/mm3 (4.10-5.30); WHITE BLOOD CELL COUNT,WBC 7.18 K/mm3 (3.9-11.3)
[2023-04-15 06:12] LABS: ANION GAP 11.4 (5-15); BUN/CREATININE RATIO 20.9 (14-18); CALCIUM 8.8 mg/dL (8.5-10.1); CREATININE 1.1 mg/dL (0.55-1.02); EST CRCL DRUG DOSING (CG) 29.81 mL/min; POTASSIUM,K 4.4 mEq/L (3.5-5.1)
[2023-04-15] MEDS: HYDROmorphone 0.5 MG/0.5 ML Syringe IVPUSH PRN (08:27)
[2023-04-15] MEDS ORDERED: Labetalol 100 MG/20 ML MDV IVPUSH PRN (08:34)
[2023-04-15] MEDS: Ferrous Sulfate 324 MG Tab.EC PO SCH (20:52)
[2023-04-15] MEDS: Lisinopril 10 MG Tab PO SCH (20:52)
[2023-04-16] MEDS: Labetalol 100 MG/20 ML MDV IV PRN (04:51)
[2023-04-16 05:35] LABS: BASOPHILS PERCENT AUTO 0.5 % (0.0-1.0); EOSINOPHILS ABSOLUTE AUTO 0.2 K/mm3 (0.0-0.4); EOSINOPHILS PERCENT AUTO 2.4 % (0.0-6.0); HEMOGLOBIN 9.8 gm/dl (12.0-16.0); IMMATURE GRAN ABSOLUTE AUTO 0.05 K/mm3 (0.00-0.05); IMMATURE GRAN PERCENT AUTO 0.8 % (0.0-0.4); LYMPHOCYTES PERCENT AUTO 16.3 % (24.0-44.0); MEAN CORPUSCULAR HEMOGLOBIN 33.4 pg (28.0-32.0); MEAN CORPUSCULAR HGB CONC 32.7 g/dl (32.0-36.0); MEAN CORPUSCULAR VOLUME 102.4 fl (83.0-99.0); MEAN PLATELET VOLUME 9.9 fl (9.4-12.3); MONOCYTES ABSOLUTE AUTO 0.6 K/mm3 (0.0-0.8); MONOCYTES PERCENT AUTO 9.6 % (0.0-8.0); NEUTROPHILS ABSOLUTE AUTO 4.5 K/mm3 (1.8-7.7); NEUTROPHILS PERCENT AUTO 70.4 % (41.0-71.0); PLATELET COUNT,PLT 172 K/mm3 (150-400); RED BLOOD CELL COUNT 2.93 M/mm3 (4.10-5.30); WHITE BLOOD CELL COUNT,WBC 6.37 K/mm3 (3.9-11.3)
[2023-04-16 05:37] LABS: ANION GAP 13.4 (5-15); BUN/CREATININE RATIO 18.2 (14-18); CALCIUM 8.8 mg/dL (8.5-10.1); CREATININE 1.1 mg/dL (0.55-1.02); EST CRCL DRUG DOSING (CG) 29.81 mL/min; POTASSIUM,K 4.4 mEq/L (3.5-5.1)
[2023-04-16] MEDS: Furosemide 40 MG Tab PO SCH (17:45)
[2023-04-17 04:46] LABS: METHYLMALONIC ACID 0.14 umol/L (0.00-0.40)
[2023-04-17 04:51] LABS: BASOPHILS PERCENT AUTO 0.7 % (0.0-1.0); EOSINOPHILS ABSOLUTE AUTO 0.1 K/mm3 (0.0-0.4); EOSINOPHILS PERCENT AUTO 2.2 % (0.0-6.0); HEMATOCRIT 29.6 % (37.0-47.0); HEMOGLOBIN 9.5 gm/dl (12.0-16.0); IMMATURE GRAN ABSOLUTE AUTO 0.06 K/mm3 (0.00-0.05); LYMPHOCYTES PERCENT AUTO 15.7 % (24.0-44.0); MEAN CORPUSCULAR HEMOGLOBIN 32.5 pg (28.0-32.0); MEAN CORPUSCULAR HGB CONC 32.1 g/dl (32.0-36.0); MEAN CORPUSCULAR VOLUME 101.4 fl (83.0-99.0); MEAN PLATELET VOLUME 9.4 fl (9.4-12.3); MONOCYTES ABSOLUTE AUTO 0.9 K/mm3 (0.0-0.8); MONOCYTES PERCENT AUTO 14.4 % (0.0-8.0); PLATELET COUNT,PLT 202 K/mm3 (150-400); RED BLOOD CELL COUNT 2.92 M/mm3 (4.10-5.30); WHITE BLOOD CELL COUNT,WBC 6.04 K/mm3 (3.9-11.3)
[2023-04-17 05:25] LABS: ANION GAP 12.4 (5-15); BUN/CREATININE RATIO 20.9 (14-18); CALCIUM 9.1 mg/dL (8.5-10.1); CREATININE 1.1 mg/dL (0.55-1.02); EST CRCL DRUG DOSING (CG) 29.81 mL/min; POTASSIUM,K 4.4 mEq/L (3.5-5.1)
[2023-04-17] MEDS: Acetaminophen 325 MG Tab PO PRN (08:26)
[2023-04-21] MEDS: Sodium Chloride 0.9% 1,000 ML IV SCH (08:50)
[2023-04-22 05:33] LABS: BASOPHILS PERCENT AUTO 0.5 % (0.0-1.0); EOSINOPHILS ABSOLUTE AUTO 0.2 K/mm3 (0.0-0.4); EOSINOPHILS PERCENT AUTO 3.3 % (0.0-6.0); HEMATOCRIT 28.6 % (37.0-47.0); HEMOGLOBIN 9.2 gm/dl (12.0-16.0); IMMATURE GRAN ABSOLUTE AUTO 0.11 K/mm3 (0.00-0.05); IMMATURE GRAN PERCENT AUTO 1.7 % (0.0-0.4); LYMPHOCYTES ABSOLUTE AUTO 1.3 K/mm3 (1.0-4.8); LYMPHOCYTES PERCENT AUTO 20.8 % (24.0-44.0); MEAN CORPUSCULAR HEMOGLOBIN 33.7 pg (28.0-32.0); MEAN CORPUSCULAR HGB CONC 32.2 g/dl (32.0-36.0); MEAN CORPUSCULAR VOLUME 104.8 fl (83.0-99.0); MEAN PLATELET VOLUME 8.9 fl (9.4-12.3); MONOCYTES ABSOLUTE AUTO 0.9 K/mm3 (0.0-0.8); MONOCYTES PERCENT AUTO 13.4 % (0.0-8.0); NEUTROPHILS ABSOLUTE AUTO 3.8 K/mm3 (1.8-7.7); NEUTROPHILS PERCENT AUTO 60.3 % (41.0-71.0); PLATELET COUNT,PLT 268 K/mm3 (150-400); RED BLOOD CELL COUNT 2.73 M/mm3 (4.10-5.30); WHITE BLOOD CELL COUNT,WBC 6.34 K/mm3 (3.9-11.3)
[2023-04-22 05:42] LABS: A/G RATIO 0.7 (1-2); ALBUMIN 2.3 g/dl (3.4-5.0); ANION GAP 12.7 (5-15); BUN/CREATININE RATIO 37.5 (14-18); CALCIUM 8.5 mg/dL (8.5-10.1); CREATININE 1.2 mg/dL (0.55-1.02); EST CRCL DRUG DOSING (CG) 27.32 mL/min; POTASSIUM,K 4.7 mEq/L (3.5-5.1); PROTEIN TOTAL,TP 5.7 g/dl (6.4-8.2)
[2023-04-22] MEDS: Sennosides/Docusate Sodium 50-8.6 MG Tab PO SCH (11:40)
[2023-04-22] MEDS: Polyethylene Glycol 3350 Powder 17 GM Packet PO SCH (11:40)
[2023-04-23 13:02] VITALS: BP 140/66; PULSE 80
== END 2023-04-23 12:26 | DRG 689 ==
LOC: JD.ED 12:24 → JD.MS 18:01
PROVIDERS: ADMIT Student in an Organized Health Care Education/Training Program; ATTEND Internal Medicine
DX: N30.01 Acute cystitis with hematuria (principal); G93.41 Metabolic encephalopathy; S42.201A Unspecified fracture of upper end of right humerus, initial encounter for closed fracture; I11.0 Hypertensive heart disease with heart failure; S22.070A Wedge compression fracture of T9-T10 vertebra, initial encounter for closed fracture; F03.C4 Unspecified dementia, severe, with anxiety; I13.0 Hypertensive heart and chronic kidney disease with heart failure and stage 1 through stage 4 chronic kidney disease, or unspecified chronic kidney disease; N18.4 Chronic kidney disease, stage 4 (severe); R55 Syncope and collapse; E78.00 Pure hypercholesterolemia, unspecified; W18.09XA Striking against other object with subsequent fall, initial encounter; I50.9 Heart failure, unspecified; M19.90 Unspecified osteoarthritis, unspecified site; E66.9 Obesity, unspecified; Z96.659 Presence of unspecified artificial knee joint; D53.9 Nutritional anemia, unspecified; E88.09 Other disorders of plasma-protein metabolism, not elsewhere classified; Z66 Do not resuscitate; S93.401A Sprain of unspecified ligament of right ankle, initial encounter; R93.5 Abnormal findings on diagnostic imaging of other abdominal regions, including retroperitoneum; D63.1 Anemia in chronic kidney disease; I37.1 Nonrheumatic pulmonary valve insufficiency; I77.810 Thoracic aortic ectasia; I48.91 Unspecified atrial fibrillation; N83.201 Unspecified ovarian cyst, right side; R16.1 Splenomegaly, not elsewhere classified; Z79.82 Long term (current) use of aspirin; Z91.040 Latex allergy status; Z79.899 Other long term (current) drug therapy; Z68.27 Body mass index [BMI] 27.0-27.9, adult; Z98.49 Cataract extraction status, unspecified eye; Z98.890 Other specified postprocedural states; Z87.891 Personal history of nicotine dependence; Z86.73 Personal history of transient ischemic attack (TIA), and cerebral infarction without residual deficits; W19.XXXA Unspecified fall, initial encounter; Z86.010 Personal history of colon polyps
CPT/HCPCS: 0241U; 36415; 70450; 71045; 73030; 73200; 73610; 74177; 76770; 80048; 80053; 81001; 82607; 82746; 83605; 83690; 83735; 83921; 84484; 85025; 86140; 87040; 93005; 93307; 96365; 96375; 97116; 97162; 97530; 99285; 93010; 99223; 99231; 99232; 99233; 99239; 99284; A9270-GY; J0696; J1170; J1644; J1921; J3490; J7030; Q9967

== ENCOUNTER 2023-09-08 10:09 | Emergency (ER) | payer MEDICARE, BC, MEDICAID ==
[2023-09-08 11:36] LABS: BASOPHILS PERCENT AUTO 0.5 % (0.0-1.0); EOSINOPHILS ABSOLUTE AUTO 0.2 K/mm3 (0.0-0.4); EOSINOPHILS PERCENT AUTO 3.3 % (0.0-6.0); HEMATOCRIT 39.4 % (37.0-47.0); IMMATURE GRAN ABSOLUTE AUTO 0.02 K/mm3 (0.00-0.05); IMMATURE GRAN PERCENT AUTO 0.4 % (0.0-0.4); LYMPHOCYTES ABSOLUTE AUTO 1.3 K/mm3 (1.0-4.8); LYMPHOCYTES PERCENT AUTO 23.9 % (24.0-44.0); MEAN CORPUSCULAR HEMOGLOBIN 31.4 pg (28.0-32.0); MEAN CORPUSCULAR HGB CONC 32.5 g/dl (32.0-36.0); MEAN PLATELET VOLUME 9.3 fl (9.4-12.3); MONOCYTES ABSOLUTE AUTO 0.7 K/mm3 (0.0-0.8); MONOCYTES PERCENT AUTO 13.5 % (0.0-8.0); NEUTROPHILS ABSOLUTE AUTO 3.2 K/mm3 (1.8-7.7); NEUTROPHILS PERCENT AUTO 58.4 % (41.0-71.0); RED BLOOD CELL COUNT 4.08 M/mm3 (4.10-5.30); WHITE BLOOD CELL COUNT,WBC 5.49 K/mm3 (3.9-11.3)
[2023-09-08 11:37] LABS: HEMOGLOBIN 12.8 gm/dl (12.0-16.0); MEAN CORPUSCULAR VOLUME 96.6 fl (83.0-99.0); PLATELET COUNT,PLT 188 K/mm3 (150-400)
[2023-09-08 12:02] LABS: ALBUMIN 3.2 g/dl (3.4-5.0); ANION GAP 9.7 (5-15); BILIRUBIN TOTAL 0.8 mg/dL (0.2-1.0); BUN/CREATININE RATIO 18.8 (14-18); C-REACTIVE PROTEIN 0.28 mg/dL (<0.30); CALCIUM 9.3 mg/dL (8.5-10.1); CREATININE 1.7 mg/dL (0.55-1.02); EST CRCL DRUG DOSING (CG) 18.92 mL/min; POTASSIUM,K 4.7 mEq/L (3.5-5.1); PROTEIN TOTAL,TP 6.5 g/dl (6.4-8.2)
[2023-09-08 12:09] LABS: APPEARANCE,URINE CLEAR (Clear); BILIRUBIN,URINE NEGATIVE (Negative); COLOR,URINE YELLOW (Yellow); GLUCOSE,URINE NEGATIVE (Negative); KETONES,URINE NEGATIVE (Negative); LEUKOCYTE ESTERASE,URINE 1+ (Negative); NITRITE,URINE NEGATIVE (Negative); OCCULT BLOOD,URINE NEGATIVE (Negative); PROTEIN,URINE NEGATIVE (Negative); UROBILINOGEN,URINE 0.2 (0.2-1.0)
[2023-09-08] MEDS: hydrALAZINE 20 MG/ML SDV IVPUSH ONE (12:11)
[2023-09-08 12:17] LABS: BACTERIA,URINE MODERATE /hpf (FEW); MUCUS,URINE FEW /hpf (FEW); RBC,URINE 0-5 /hpf (0-5)
[2023-09-08] MEDS: Sulfamethoxazole/Trimethoprim 800-160 MG Tab PO ONE (13:20)
[2023-09-08 13:42] VITALS: BP 154/85; PULSE 68
== END 2023-09-08 13:35 | disposition home or self-care (01) ==
LOC: JD.ED 10:09
DX: N30.01 Acute cystitis with hematuria (principal); F03.C0 Unspecified dementia, severe, without behavioral disturbance, psychotic disturbance, mood disturbance, and anxiety; I11.0 Hypertensive heart disease with heart failure; I50.9 Heart failure, unspecified; K21.9 Gastro-esophageal reflux disease without esophagitis; E66.9 Obesity, unspecified; Z68.26 Body mass index [BMI] 26.0-26.9, adult; Z79.82 Long term (current) use of aspirin; Z79.899 Other long term (current) drug therapy; Z91.040 Latex allergy status
CPT/HCPCS: 36415; 80053; 81001; 83735; 85025; 86140; 87086; 96374; 99284; A9270; J0360

== ENCOUNTER 2024-01-21 10:50 | Inpatient (IN) | payer MEDICARE, BC, MEDICAID ==
[2024-01-21 11:42] LABS: BASOPHILS PERCENT AUTO 0.3 % (0.0-1.0); EOSINOPHILS ABSOLUTE AUTO 0.1 K/mm3 (0.0-0.4); EOSINOPHILS PERCENT AUTO 0.4 % (0.0-6.0); HEMATOCRIT 42.1 % (37.0-47.0); HEMOGLOBIN 13.8 gm/dl (12.0-16.0); IMMATURE GRAN ABSOLUTE AUTO 0.04 K/mm3 (0.00-0.05); IMMATURE GRAN PERCENT AUTO 0.3 % (0.0-0.4); LYMPHOCYTES ABSOLUTE AUTO 0.7 K/mm3 (1.0-4.8); LYMPHOCYTES PERCENT AUTO 5.3 % (24.0-44.0); MEAN CORPUSCULAR HEMOGLOBIN 32.1 pg (28.0-32.0); MEAN CORPUSCULAR HGB CONC 32.8 g/dl (32.0-36.0); MEAN CORPUSCULAR VOLUME 97.9 fl (83.0-99.0); MEAN PLATELET VOLUME 9.2 fl (9.4-12.3); MONOCYTES PERCENT AUTO 7.1 % (0.0-8.0); NEUTROPHILS ABSOLUTE AUTO 12.1 K/mm3 (1.8-7.7); NEUTROPHILS PERCENT AUTO 86.6 % (41.0-71.0); WHITE BLOOD CELL COUNT,WBC 14.01 K/mm3 (3.9-11.3)
[2024-01-21 11:43] LABS: APPEARANCE,URINE CLEAR (Clear); BILIRUBIN,URINE NEGATIVE (Negative); COLOR,URINE LIGHT YELLOW (Yellow); GLUCOSE,URINE NEGATIVE (Negative); KETONES,URINE NEGATIVE (Negative); LEUKOCYTE ESTERASE,URINE 1+ (Negative); NITRITE,URINE NEGATIVE (Negative); OCCULT BLOOD,URINE NEGATIVE (Negative); PH,URINE 7.5 (5.0-8.0); PROTEIN,URINE NEGATIVE (Negative); UROBILINOGEN,URINE 0.2 (0.2-1.0)
[2024-01-21 12:00] LABS: PLATELET COUNT,PLT 266 K/mm3 (150-400)
[2024-01-21 12:08] LABS: A/G RATIO 0.9 (1-2); ALBUMIN 3.3 g/dl (3.4-5.0); ANION GAP 9.2 (5-15); CALCIUM 9.6 mg/dL (8.5-10.1); CREATININE 1.2 mg/dL (0.55-1.02); EST CRCL DRUG DOSING (CG) 26.81 mL/min; MAGNESIUM 1.7 mg/dL (1.8-2.4); POTASSIUM,K 4.2 mEq/L (3.5-5.1); PROTEIN TOTAL,TP 7.2 g/dl (6.4-8.2)
[2024-01-21 12:12] LABS: RBC,URINE 0-5 /hpf (0-5)
[2024-01-21 12:13] LABS: BACTERIA,URINE FEW /hpf (FEW); EPITHELIAL CELLS,URINE 0-5 /hpf (0-5); MUCUS,URINE FEW /hpf (FEW)
[2024-01-21] MEDS: Albuterol/Ipratropium 3.0-0.5 MG/3 ML Neb Soln NEB ONE (12:18)
[2024-01-21 12:22] LABS: INR 0.93; PROTHROMBIN TIME 9.9 SECONDS (9.7-12.0)
[2024-01-21 12:23] LABS: PTT,PARTIAL THROMBOPLSTIN TIME 28.4 SECONDS (21.7-31.4)
[2024-01-21 12:36] LABS: LACTIC ACID 0.8 mmol/L (0.4-2.0)
[2024-01-21] MEDS ORDERED: Piperacillin/Tazobactam 4.5 GM in Sodium Chloride 0.9% 100 ML IV ONE (13:12)
[2024-01-21] MEDS: Piperacillin/Tazobactam 4.5 GM Vial IV ONE (13:22)
[2024-01-21] MEDS: Piperacillin/Tazobactam 4.5 GM in Sodium Chloride 0.9% 100 ML IV ONE ×2 (13:31→13:33)
[2024-01-21] MEDS ORDERED: Calcium Carbonate 500 MG Tab.Chew PO PRN (14:50)
[2024-01-21] MEDS ORDERED: Carboxymethylcellulose Sodium 1% Ophth Gel 15 ML Bottle EYEBOTH PRN (15:16)
[2024-01-21] MEDS: Sodium Chloride 3% Inhalation Soln 4 ML Neb NEB SCH (15:18)
[2024-01-21] MEDS ORDERED: oxyCODONE 5 MG Tab PO PRN (15:18)
[2024-01-21] MEDS ORDERED: Ondansetron 4 MG/2 ML SDV IV PRN (15:18)
[2024-01-21] MEDS ORDERED: Sennosides/Docusate Sodium 50-8.6 MG Tab PO PRN (15:18)
[2024-01-21] MEDS: Albuterol/Ipratropium 3.0-0.5 MG/3 ML Neb Soln NEB PRN (15:18)
[2024-01-21] MEDS: methylPREDNISolone Sodium Succinate 125 MG/2 ML SDV IVPUSH ONE (15:47)
[2024-01-21] MEDS: Magnesium Sulfate/Water Premix 4 GM in Premix Bag 1 BAG IV ONE (15:47)
[2024-01-21] MEDS: Lactated Ringers 1,000 ML IV SCH (15:48)
[2024-01-21] MEDS: cefTRIAXone 1 GM Vial IV SCH (20:39)
[2024-01-21] MEDS: rOPINIRole 0.25 MG Tab PO SCH (20:40)
[2024-01-21] MEDS: Gabapentin 100 MG Cap PO SCH (20:40)
[2024-01-21] MEDS: Carboxymethylcellulose Sodium 1% Ophth Gel 15 ML Bottle EYEBOTH SCH (20:40)
[2024-01-21] MEDS ORDERED: Melatonin 3 MG Tab PO PRN (21:00)
[2024-01-22 06:48] LABS: BASOPHILS PERCENT AUTO 0.1 % (0.0-1.0); HEMATOCRIT 34.1 % (37.0-47.0); IMMATURE GRAN ABSOLUTE AUTO 0.08 K/mm3 (0.00-0.05); IMMATURE GRAN PERCENT AUTO 0.5 % (0.0-0.4); LYMPHOCYTES ABSOLUTE AUTO 0.6 K/mm3 (1.0-4.8); LYMPHOCYTES PERCENT AUTO 3.8 % (24.0-44.0); MEAN CORPUSCULAR HEMOGLOBIN 31.5 pg (28.0-32.0); MEAN CORPUSCULAR HGB CONC 33.1 g/dl (32.0-36.0); MEAN PLATELET VOLUME 9.4 fl (9.4-12.3); MONOCYTES ABSOLUTE AUTO 0.4 K/mm3 (0.0-0.8); MONOCYTES PERCENT AUTO 2.8 % (0.0-8.0); NEUTROPHILS ABSOLUTE AUTO 14.5 K/mm3 (1.8-7.7); NEUTROPHILS PERCENT AUTO 92.8 % (41.0-71.0); PLATELET COUNT,PLT 219 K/mm3 (150-400); RED BLOOD CELL COUNT 3.59 M/mm3 (4.10-5.30); WHITE BLOOD CELL COUNT,WBC 15.57 K/mm3 (3.9-11.3)
[2024-01-22 06:51] LABS: HEMOGLOBIN 11.3 gm/dl (12.0-16.0)
[2024-01-22 07:02] LABS: A/G RATIO 0.7 (1-2); ALBUMIN 2.5 g/dl (3.4-5.0); ANION GAP 11.2 (5-15); BILIRUBIN TOTAL 0.6 mg/dL (0.2-1.0); BUN/CREATININE RATIO 18.5 (14-18); C-REACTIVE PROTEIN 11.09 mg/dL (<0.30); CALCIUM 8.9 mg/dL (8.5-10.1); CREATININE 1.3 mg/dL (0.55-1.02); EST CRCL DRUG DOSING (CG) 24.74 mL/min; PHOSPHORUS 3.8 mg/dL (2.6-4.7); POTASSIUM,K 4.2 mEq/L (3.5-5.1); PROTEIN TOTAL,TP 6.1 g/dl (6.4-8.2)
[2024-01-22 07:07] LABS: SLIDE REVIEW ABNORMAL SMEAR
[2024-01-22] MEDS: Enoxaparin 30 MG/0.3 ML Syringe SUBCUT SCH (08:15)
[2024-01-22] MEDS: Metoprolol Succinate 50 MG Tab.ER PO SCH (08:16)
[2024-01-22] MEDS: Polyethylene Glycol 3350 Powder 17 GM Packet PO SCH (08:17)
[2024-01-22] MEDS: Cholecalciferol (Vitamin D3) 25 MCG Tab PO SCH (08:17)
[2024-01-22] MEDS: Aspirin 81 MG Tab.EC PO SCH (08:17)
[2024-01-22] MEDS: DULoxetine 20 MG Cap PO SCH (08:17)
[2024-01-22] MEDS ORDERED: cefTRIAXone 1 GM in Sodium Chloride 0.9% 50 ML IV SCH (09:00)
[2024-01-22] MEDS ORDERED: PIPERACILLIN IV ONE (23:32)
[2024-01-22] MEDS ORDERED: SODIUM CHLORIDE 0.9% IV ONE (23:32)
[2024-01-22] MEDS ORDERED: TAZOBACTAM IV ONE (23:32)
[2024-01-23] MEDS: Acetaminophen 325 MG Tab PO PRN (03:28)
[2024-01-23 04:32] LABS: BASOPHILS PERCENT AUTO 0.1 % (0.0-1.0); HEMATOCRIT 33.4 % (37.0-47.0); HEMOGLOBIN 11.1 gm/dl (12.0-16.0); IMMATURE GRAN ABSOLUTE AUTO 0.06 K/mm3 (0.00-0.05); IMMATURE GRAN PERCENT AUTO 0.4 % (0.0-0.4); LYMPHOCYTES ABSOLUTE AUTO 1.1 K/mm3 (1.0-4.8); LYMPHOCYTES PERCENT AUTO 8.1 % (24.0-44.0); MEAN CORPUSCULAR HGB CONC 33.2 g/dl (32.0-36.0); MEAN CORPUSCULAR VOLUME 93.3 fl (83.0-99.0); MEAN PLATELET VOLUME 9.7 fl (9.4-12.3); MONOCYTES ABSOLUTE AUTO 1.1 K/mm3 (0.0-0.8); MONOCYTES PERCENT AUTO 7.7 % (0.0-8.0); NEUTROPHILS ABSOLUTE AUTO 11.6 K/mm3 (1.8-7.7); NEUTROPHILS PERCENT AUTO 83.7 % (41.0-71.0); PLATELET COUNT,PLT 258 K/mm3 (150-400); RED BLOOD CELL COUNT 3.58 M/mm3 (4.10-5.30)
[2024-01-23 04:55] LABS: ANION GAP 10.7 (5-15); BUN/CREATININE RATIO 24.7 (14-18); C-REACTIVE PROTEIN 9.25 mg/dL (<0.30); CALCIUM 8.9 mg/dL (8.5-10.1); CREATININE 1.5 mg/dL (0.55-1.02); EST CRCL DRUG DOSING (CG) 21.44 mL/min; PHOSPHORUS 3.1 mg/dL (2.6-4.7); POTASSIUM,K 3.7 mEq/L (3.5-5.1)
[2024-01-23] MEDS: Potassium Chloride 20 MEQ Tab.ER PO ONE (10:56)
[2024-01-23 12:46] VITALS: BP 110/86; PULSE 78
[2024-01-25 14:41] LABS: B PARAPERTUSSIS, PCR Not Detected; B PERTUSSIS, PCR Not Detected; BPERT/PARAPERT SOURCE Nasopharyngeal
== END 2024-01-23 12:55 | DRG 871 ==
LOC: JD.ED 10:50 → JD.MS 13:54
PROVIDERS: ADMIT Student in an Organized Health Care Education/Training Program; ATTEND Student in an Organized Health Care Education/Training Program
DX: A41.9 Sepsis, unspecified organism (principal); J96.01 Acute respiratory failure with hypoxia; I13.0 Hypertensive heart and chronic kidney disease with heart failure and stage 1 through stage 4 chronic kidney disease, or unspecified chronic kidney disease; F03.94 Unspecified dementia, unspecified severity, with anxiety; N39.0 Urinary tract infection, site not specified; R65.20 Severe sepsis without septic shock; Z66 Do not resuscitate; H54.7 Unspecified visual loss; I50.9 Heart failure, unspecified; E78.00 Pure hypercholesterolemia, unspecified; Z68.23 Body mass index [BMI] 23.0-23.9, adult; K59.09 Other constipation; K52.9 Noninfective gastroenteritis and colitis, unspecified; K21.9 Gastro-esophageal reflux disease without esophagitis; N18.9 Chronic kidney disease, unspecified; M19.90 Unspecified osteoarthritis, unspecified site; E66.9 Obesity, unspecified; G62.9 Polyneuropathy, unspecified; Z96.659 Presence of unspecified artificial knee joint; J40 Bronchitis, not specified as acute or chronic; R13.10 Dysphagia, unspecified; Z91.040 Latex allergy status; Z79.82 Long term (current) use of aspirin; Z79.899 Other long term (current) drug therapy; Z87.81 Personal history of (healed) traumatic fracture; Z68.22 Body mass index [BMI] 22.0-22.9, adult; Z98.890 Other specified postprocedural states
CPT/HCPCS: 36415; 71045; 71250; 80053; 81001; 83605; 83735; 83880; 84484; 85025; 85610; 85730; 87040 ×2; 87086; 87428; 87641; 93005; 94640; 96365; 99285; J2543; J3490; 80048; 84100; 86140; 87798; 94667; 94668; 94761; 97110-GP; 97116-GP; 97161-GP; 97530-GP; A9270-GY; J0696; J1650; J2919; J3475; J7120; J7620-GY

== ENCOUNTER 2024-05-02 07:52 | Emergency (ER) | payer MEDICARE, BC, MEDICAID ==
[2024-05-02] MEDS ORDERED: Sodium Chloride 0.9% 10 ML Syringe FLUSH PRN (08:05)
[2024-05-02 08:20] LABS: BASOPHILS ABSOLUTE AUTO 0.1 K/mm3 (0.0-0.2); EOSINOPHILS ABSOLUTE AUTO 0.2 K/mm3 (0.0-0.4); EOSINOPHILS PERCENT AUTO 3.5 % (0.0-6.0); HEMATOCRIT 32.4 % (37.0-47.0); HEMOGLOBIN 10.7 gm/dl (12.0-16.0); IMMATURE GRAN ABSOLUTE AUTO 0.01 K/mm3 (0.00-0.05); IMMATURE GRAN PERCENT AUTO 0.2 % (0.0-0.4); LYMPHOCYTES ABSOLUTE AUTO 1.2 K/mm3 (1.0-4.8); LYMPHOCYTES PERCENT AUTO 23.8 % (24.0-44.0); MEAN CORPUSCULAR HEMOGLOBIN 30.7 pg (28.0-32.0); MEAN CORPUSCULAR VOLUME 93.1 fl (83.0-99.0); MEAN PLATELET VOLUME 8.7 fl (9.4-12.3); MONOCYTES ABSOLUTE AUTO 0.7 K/mm3 (0.0-0.8); MONOCYTES PERCENT AUTO 13.7 % (0.0-8.0); NEUTROPHILS PERCENT AUTO 57.8 % (41.0-71.0); PLATELET COUNT,PLT 244 K/mm3 (150-400); RED BLOOD CELL COUNT 3.48 M/mm3 (4.10-5.30); WHITE BLOOD CELL COUNT,WBC 5.12 K/mm3 (3.9-11.3)
[2024-05-02] MEDS: Diphtheria,Pertussis(Acell),Tetanus Vaccine 0.5 ML Syringe IM ONE (08:33)
[2024-05-02 09:01] LABS: A/G RATIO 0.8 (1-2); ALANINE AMINOTRANSFERASE,ALT 15 U/L (14-59); ALBUMIN 2.7 g/dl (3.4-5.0); ALKALINE PHOSPHATASE 94 U/L (46-116); ANION GAP 8.1 (5-15); ASPARTATE AMNIOTRANSFERASE,AST 24 U/L (15-37); BILIRUBIN TOTAL 0.5 mg/dL (0.2-1.0); BLOOD UREA NITROGEN,BUN 16 mg/dL (7-18); CALCIUM 8.8 mg/dL (8.5-10.1); CARBON DIOXIDE,CO2 32 mEq/L (21-32); CHLORIDE,CL 97 mEq/L (98-107); CREATINE KINASE,CK 43 U/L (26-192); ESTIMATED GFR 54 mL/min (>60); GLUCOSE RANDOM 92 mg/dL (70-99); POTASSIUM,K 4.1 mEq/L (3.5-5.1); PROTEIN TOTAL,TP 6.1 g/dl (6.4-8.2); SODIUM,NA 133 mEq/L (136-145)
[2024-05-02 10:32] LABS: APPEARANCE,URINE CLEAR (Clear); BILIRUBIN,URINE NEGATIVE (Negative); COLOR,URINE YELLOW (Yellow); GLUCOSE,URINE NEGATIVE (Negative); KETONES,URINE NEGATIVE (Negative); LEUKOCYTE ESTERASE,URINE NEGATIVE (Negative); NITRITE,URINE NEGATIVE (Negative); OCCULT BLOOD,URINE NEGATIVE (Negative); PROTEIN,URINE NEGATIVE (Negative); UROBILINOGEN,URINE 0.2 (0.2-1.0)
[2024-05-02] MEDS: Acetaminophen 325 MG Tab PO ONE (10:49)
[2024-05-02] MEDS: Ondansetron 4 MG Tab.DIS PO ONE (12:42)
[2024-05-02 19:21] VITALS: BP 121/64; PULSE 85
== END 2024-05-02 12:09 | disposition home or self-care (01) ==
LOC: JD.ED 07:52
DX: S01.112A Laceration without foreign body of left eyelid and periocular area, initial encounter (principal); I13.0 Hypertensive heart and chronic kidney disease with heart failure and stage 1 through stage 4 chronic kidney disease, or unspecified chronic kidney disease; N18.9 Chronic kidney disease, unspecified; D63.1 Anemia in chronic kidney disease; I50.9 Heart failure, unspecified; E78.00 Pure hypercholesterolemia, unspecified; Z91.040 Latex allergy status; Z79.82 Long term (current) use of aspirin; Z23 Encounter for immunization; Z79.899 Other long term (current) drug therapy; W18.39XA Other fall on same level, initial encounter; Y93.01 Activity, walking, marching and hiking
CPT/HCPCS: 12013; 36415; 70450; 72125; 80053; 81003; 82550; 85025; 90471; 90715; 99284; A9270; 99283

== ENCOUNTER 2024-06-12 13:11 | Emergency (ER) | payer MEDICARE, BC, MEDICAID ==
[2024-06-12 13:23] VITALS: BP 130/80
[2024-06-12 13:48] VITALS: PULSE 53
[2024-06-12] MEDS: Sodium Chloride 0.9% 250 ML IV ONE (13:53)
[2024-06-12 14:01] LABS: BASOPHILS PERCENT AUTO 0.4 % (0.0-1.0); EOSINOPHILS ABSOLUTE AUTO 0.1 K/mm3 (0.0-0.4); EOSINOPHILS PERCENT AUTO 2.5 % (0.0-6.0); HEMATOCRIT 35.6 % (37.0-47.0); HEMOGLOBIN 11.2 gm/dl (12.0-16.0); IMMATURE GRAN ABSOLUTE AUTO 0.01 K/mm3 (0.00-0.05); IMMATURE GRAN PERCENT AUTO 0.2 % (0.0-0.4); LYMPHOCYTES ABSOLUTE AUTO 0.9 K/mm3 (1.0-4.8); MEAN CORPUSCULAR HEMOGLOBIN 29.5 pg (28.0-32.0); MEAN CORPUSCULAR HGB CONC 31.5 g/dl (32.0-36.0); MEAN CORPUSCULAR VOLUME 93.7 fl (83.0-99.0); MEAN PLATELET VOLUME 9.3 fl (9.4-12.3); MONOCYTES ABSOLUTE AUTO 0.8 K/mm3 (0.0-0.8); MONOCYTES PERCENT AUTO 14.9 % (0.0-8.0); NEUTROPHILS ABSOLUTE AUTO 3.4 K/mm3 (1.8-7.7); PLATELET COUNT,PLT 217 K/mm3 (150-400); WHITE BLOOD CELL COUNT,WBC 5.24 K/mm3 (3.9-11.3)
[2024-06-12 14:32] LABS: A/G RATIO 0.8 (1-2); ALANINE AMINOTRANSFERASE,ALT 19 U/L (14-59); ALBUMIN 3.1 g/dl (3.4-5.0); ALKALINE PHOSPHATASE 116 U/L (46-116); ANION GAP 11.4 (5-15); ASPARTATE AMNIOTRANSFERASE,AST 25 U/L (15-37); BILIRUBIN TOTAL 0.5 mg/dL (0.2-1.0); BLOOD UREA NITROGEN,BUN 22 mg/dL (7-18); BUN/CREATININE RATIO 15.7 (14-18); CALCIUM 9.2 mg/dL (8.5-10.1); CARBON DIOXIDE,CO2 31 mEq/L (21-32); CHLORIDE,CL 100 mEq/L (98-107); CREATININE 1.4 mg/dL (0.55-1.02); ESTIMATED GFR 36 mL/min (>60); GLUCOSE RANDOM 101 mg/dL (70-99); MAGNESIUM 2.1 mg/dL (1.8-2.4); POTASSIUM,K 4.4 mEq/L (3.5-5.1); PROTEIN TOTAL,TP 6.8 g/dl (6.4-8.2); SODIUM,NA 138 mEq/L (136-145); TROPONIN I HIGH SENSITIVITY 5 pg/mL (<=51)
[2024-06-12 15:14] LABS: APPEARANCE,URINE CLEAR (Clear); BILIRUBIN,URINE NEGATIVE (Negative); COLOR,URINE YELLOW (Yellow); GLUCOSE,URINE NEGATIVE (Negative); KETONES,URINE NEGATIVE (Negative); LEUKOCYTE ESTERASE,URINE NEGATIVE (Negative); NITRITE,URINE NEGATIVE (Negative); OCCULT BLOOD,URINE NEGATIVE (Negative); PROTEIN,URINE NEGATIVE (Negative); UROBILINOGEN,URINE 0.2 (0.2-1.0)
== END 2024-06-12 16:46 | disposition home or self-care (01) ==
LOC: JD.ED 13:11
DX: E86.9 Volume depletion, unspecified (principal); N28.9 Disorder of kidney and ureter, unspecified; I11.0 Hypertensive heart disease with heart failure; I50.9 Heart failure, unspecified; E66.9 Obesity, unspecified; Z79.82 Long term (current) use of aspirin; Z79.899 Other long term (current) drug therapy; Z91.040 Latex allergy status
CPT/HCPCS: 36415; 70450; 71045; 80053; 81003; 83735; 83880; 84484; 85025; 93005; 96360; 96361; 99285; C1758; J7030

== ENCOUNTER 2025-01-10 17:08 | Emergency (ER) | payer MEDICARE, BC, MEDICAID ==
[2025-01-10] MEDS ORDERED: Sodium Chloride 0.9% 10 ML Syringe FLUSH PRN (17:26)
[2025-01-10 17:47] LABS: BASOPHILS ABSOLUTE AUTO 0.0 K/mm3 (0.0-0.2); BASOPHILS PERCENT AUTO 0.5 % (0.0-1.0); EOSINOPHILS ABSOLUTE AUTO 0.1 K/mm3 (0.0-0.4); EOSINOPHILS PERCENT AUTO 1.4 % (0.0-6.0); IMMATURE GRAN ABSOLUTE AUTO 0.02 K/mm3 (0.00-0.05); IMMATURE GRAN PERCENT AUTO 0.3 % (0.0-0.4); LYMPHOCYTES ABSOLUTE AUTO 1.3 K/mm3 (1.0-4.8); LYMPHOCYTES PERCENT AUTO 19.9 % (24.0-44.0); MEAN PLATELET VOLUME 8.4 fl (9.4-12.3); MONOCYTES ABSOLUTE AUTO 0.7 K/mm3 (0.0-0.8); MONOCYTES PERCENT AUTO 11.4 % (0.0-8.0); NEUTROPHILS ABSOLUTE AUTO 4.3 K/mm3 (1.8-7.7); NEUTROPHILS PERCENT AUTO 66.5 % (41.0-71.0); NRBC ABSOLUTE 0.00 (0.00-0.02); NRBC PERCENT 0.0 % (0.0-0.2); PLATELET COUNT,PLT 202 K/mm3 (150-400); RED BLOOD CELL COUNT 3.69 M/mm3 (4.10-5.30); WHITE BLOOD CELL COUNT,WBC 6.42 K/mm3 (3.9-11.3)
[2025-01-10 18:20] LABS: A/G RATIO 0.9 (1-2); ALANINE AMINOTRANSFERASE,ALT 17.0 U/L (14-59); ASPARTATE AMNIOTRANSFERASE,AST 20.0 U/L (15-37); BILIRUBIN TOTAL 0.5 mg/dL (0.2-1.0); BLOOD UREA NITROGEN,BUN 35.0 mg/dL (7-18); CARBON DIOXIDE,CO2 31.0 mEq/L (21-32); CHLORIDE,CL 93.0 mEq/L (98-107); CREATININE 1.3 mg/dL (0.55-1.02); EST CRCL DRUG DOSING (CG) 24.27 mL/min; ESTIMATED GFR 39.0 mL/min (>60); GLUCOSE RANDOM 102.0 mg/dL (70-99); POTASSIUM,K 4.7 mEq/L (3.5-5.1); PROTEIN TOTAL,TP 6.7 g/dl (6.4-8.2); SODIUM,NA 129.0 mEq/L (136-145); TROPONIN I HIGH SENSITIVITY 6.0 pg/mL (<=51)
[2025-01-10 20:00] VITALS: BP 166/65; PULSE 68
== END 2025-01-10 19:24 | disposition home or self-care (01) ==
LOC: JD.ED 17:08
DX: R06.6 Hiccough (principal); E87.1 Hypo-osmolality and hyponatremia; I13.0 Hypertensive heart and chronic kidney disease with heart failure and stage 1 through stage 4 chronic kidney disease, or unspecified chronic kidney disease; I50.9 Heart failure, unspecified; N18.9 Chronic kidney disease, unspecified; E78.00 Pure hypercholesterolemia, unspecified; E66.9 Obesity, unspecified; Z79.82 Long term (current) use of aspirin; Z79.899 Other long term (current) drug therapy; Z91.040 Latex allergy status; Z68.24 Body mass index [BMI] 24.0-24.9, adult
CPT/HCPCS: 36415; 71045; 80053; 83735; 84484; 85025; 93005; 96374; 99285; J2765